=== PATIENT | male | born 1945 | race Caucasian/White ===

== ENCOUNTER → 2018-01-02 07:58 | Outpatient (CLI) | payer MEDICARE, OTHER, SELFPAY ==
[2018-01-02 11:53] LABS: Alanine Aminotransferase 57 IU/L (21-72); Albumin 3.9 g/dL (3.5-5.0); Albumin Globulin Ratio 1.3 (1.0-2.8); Alkaline Phosphatase 78 U/L (38-126); Aspartate Aminotransferase 47 IU/L (17-59); BUN Creatinine Ratio 23.3 (6-22); Bilirubin Total 0.7 mg/dL (0.2-1.3); Blood Urea Nitrogen 21 mg/dL (9-20); Calcium 8.9 mg/dL (8.4-10.2); Carbon Dioxide 26 mmol/L (22-32); Chloride 105 mmol/L (98-107); Cholesterol 114 mg/dL (140-199); Estimated Glomerular Filt Rate > 60.0 mL/min (>60); Globulin 2.9 g/dL (1.7-4.1); Glucose 83 mg/dL (80-110); HDL Cholesterol 55 mg/dL (40-60); HEMOLYSIS < 15 (0-50); LDL Cholesterol Calculated 53 mg/dL (<100); Potassium 4.2 mmol/L (3.4-5.1); Sodium 142 mmol/L (137-145); Total Protein 6.8 g/dL (6.3-8.2); Triglycerides 31 mg/dL (35-150)
== END ==
PROVIDERS: Visit Provider Internal Medicine Cardiovascular Disease
DX: I48.0 Paroxysmal atrial fibrillation (principal); E78.5 Hyperlipidemia, unspecified
CPT/HCPCS: 36415; 80053; 80061

== ENCOUNTER 2018-01-25 14:58 | Emergency (ER) | payer MEDICARE, OTHER, SELFPAY ==
[2018-01-25 15:08] VITALS: BP 141/103; PULSE 98; RESP 20; TEMP 36.9; O2SAT 98; BMI 24.0
--- NOTE | 2018-01-25 15:20 | ED_ITS ---
HPI - Animal Bite <[facility] - Last Filed: 01/25/18 16:47> General Chief Complaint: Animal Bite Stated Complaint: DOG BITE TO FACE Time Seen by Provider: 01/25/18 15:03 Source: patient Mode of arrival: ambulatory Limitations: no limitations History of Present Illness HPI narrative: The patient is a 72-year-old male with history of atrial fibrillation who presents after a dog bite to the face. He is unsure of his last tetanus but believes it was within the past 10 years. He states that the dog was his daughter's dog, a 12-year-old [place] who was completely vaccinated. He has not taken anything, applied anything or looked at the lacerations. He he states that the lacerations and bite moise around his right eye. He denies any irritation or pain to the right eye states that his vision is okay. Denies decreased ROM, eye problems, or concerns other than lacerations. Related Data Previous Rx's Medication Instructions Recorded doxycycline hyclate 100 mg PO BID #14 tab 01/25/18 Allergies Allergy/AdvReac Type Severity Reaction Status Date / Time ampicillin Allergy Verified 01/25/18 15:12 Review of Systems <[facility] Last Filed: 01/25/18 16:47> Review of Systems GENERAL: Denies chills, fatigue, malaise, fever, sweats. HEENT: See HPI RESPIRATORY: Denies dyspnea, cough, wheezing, hemoptysis, sputum. CARDIOVASCULAR: Denies chest pain, palpitations, orthopnea, edema, GASTROINTESTINAL: Denies nausea, vomiting, abdominal pain, diarrhea, constipation, melena. : Denies dysuria, frequency, incontinence, hematuria, urinary retention. MUSCULOSKELETAL: denies weakness, joint pain, or bony pain SKIN: See HPI NEUROLOGIC: Denies weakness, headache, numbness, change in speech, confusion, seizures, incoordination. PSYCHIATRIC: No concerning psychosocial issues. 12 point review of systems is negative except for those stated above Exam <CORTEZ De La Rosa - Last Filed: 01/25/18 16:47> Narrative Exam Narrative: GENERAL: This is a well-nourished, well-developed patient, with bandage on his face HEAD: Lacerations as noted in skin exam. Periorbital ecchymosis noted right eye. Patient is able to move eyebrows symmetrically. Facial movement symmetric. EYES: Pupils equal round reactive. EOMs intact. No abrasion or laceration under fluorescein exam. ENT: Nose without bleeding, purulent drainage or septal hematoma. Throat without erythema, tonsillar hypertrophy or exudate. Uvula midline. Airway patent. NECK: Trachea midline. No JVD or lymphadenopathy. Supple, nontender, no meningeal signs. CARDIOVASCULAR: Regular rate and rhythm without murmurs, gallops, or rubs. RESPIRATORY: Clear to auscultation. Breath sounds equal bilaterally. No wheezes , rales, or rhonchi. GASTROINTESTINAL: Abdomen soft, non-tender, nondistended. No hepato-splenomegaly , or palpable masses. No guarding. EXTREMITIES: No clubbing, cyanosis, or edema. No joint tenderness, effusion, or edema noted. BACK: Nontender without deformity or crepitance. No flank tenderness. NEURO: AOx3. SKIN: 2 x 3 cm triangular shaped avulsion injury to lateral aspect of right eyebrow. Through dermis. No obvious muscle or tendon involvement. No obvious foreign body. 1 cm v-shaped laceration between right eyelid and right eyebrow. Through dermis. No obvious muscle or tendon involvement. No obvious foreign body. Initial Vital Signs Initial Vital Signs: Vital Signs Temperature 98.4 F 01/25/18 15:08 Pulse Rate 98 H 01/25/18 15:08 Respiratory Rate 20 01/25/18 15:08 Blood Pressure 141/103 H 01/25/18 15:08 Pulse Oximetry 98 01/25/18 15:08 <Victor Manuel Landa DO - Last Filed: 01/25/18 17:13> Initial Vital Signs Initial Vital Signs: Vital Signs Temperature 98.4 F 01/25/18 15:08 Pulse Rate 98 H 01/25/18 15:08 Respiratory Rate 20 01/25/18 15:08 Blood Pressure 141/103 H 01/25/18 15:08 Pulse Oximetry 98 01/25/18 15:08 Procedures <ETHAN De La Rosa - Last Filed: 01/25/18 16:47> Laceration Repair Laceration 1: Site: face Side (If applicable): right Size (cm): 3 Description: irregular and other (2 x 3 cm Avulsion) Depth: simple, single layer Local Anesthetic: other anesthetic (EMLA cream) Pre-repair: wound explored, irrigated extensively (Irrigated with sterile water as well as iodine) and deep structures intact Skin layer closed with: other (Surgicel and gauze.) Laceration 2: Site: face Side (If applicable): right Size (cm): 1 Description: stellate Depth: simple, single layer Local Anesthetic: other anesthetic (EMLA cream) Pre-repair: wound explored, irrigated extensively and deep structures intact Skin layer closed with: other (Dermabond) Course <ETHAN De La Rosa - Last Filed: 01/25/18 16:47> Orders Ordered: Discontinued Medications Diphtheria/Tetanus/Acell Pertussis (Adacel) 0.5 ml IM .ONCE ONE Stop: 01/25/18 15:14 Last Admin: 01/25/18 15:25 Dose: 0.5 ml Lidocaine/Prilocaine (Lidocaine-Prilocaine Cream) 5 gm TOP NOW ONE Stop: 01/25/18 15:14 Last Admin: 01/25/18 15:25 Dose: 5 gm Vital Signs - 8 hr 01/25/18 15:08 01/25/18 16:29 Temperature 98.4 F Pulse Rate 98 H 71 Respiratory Rate 20 14 Blood Pressure 141/103 H 122/75 Pulse Oximetry 98 71 L <Victor Manuel Landa DO - Last Filed: 01/25/18 17:13> Orders Ordered: Discontinued Medications Diphtheria/Tetanus/Acell Pertussis (Adacel) 0.5 ml IM .ONCE ONE Stop: 01/25/18 15:14 Last Admin: 01/25/18 15:25 Dose: 0.5 ml Lidocaine/Prilocaine (Lidocaine-Prilocaine Cream) 5 gm TOP NOW ONE Stop: 01/25/18 15:14 Last Admin: 01/25/18 15:25 Dose: 5 gm Vital Signs - 8 hr 01/25/18 15:08 01/25/18 16:29 Temperature 98.4 F Pulse Rate 98 H 71 Respiratory Rate 20 14 Blood Pressure 141/103 H 122/75 Pulse Oximetry 98 71 L MDM - Animal Bite <ETHAN De La Rosa - Last Filed: 01/25/18 16:47> MDM Narrative Medical decision making narrative: Patient presents status post dog bite to the face. Lacerations and injuries treated as noted and procedures. Patient's tetanus was updated. Given the location of the bite wound, he was placed on doxycycline as he is allergic to penicillins. I discussed at length care and monitoring of lacerations. We discussed monitoring for signs and symptoms of infection despite the doxycycline including pus, extending redness and fever. Discussed at length care of Surgicel as well as Dermabond. Discussed return precautions. Patient had no questions or concerns upon discharge. I did also include and discharge instructions to wear sunscreen. Discharge Plan Departure Patient Disposition: Home Clinical Impression: Bite by animal, Dog bite, Laceration, Periorbital ecchymosis of right eye Discharge Date/Time: 01/25/18 16:30 Interventions: ED Discharge Assessment Last Done: 01/25/18 16:29 Instructions: Eye Contusion, DI for Laceration Repair With Dermabond, DI for Animal Bites, Skin Wound, DI for Dog Bite Activity Restrictions/Additional Instructions: Today we updated her tetanus because of the dog bite. We checked your eye for an abrasion and none was found. You have 2 wounds around your right eye. The larger one is an avulsion injury that I am unable to close as there is too much missing skin. I placed Surgicel in this wound to help it heal and help it stop bleeding. I would leave this on until it falls off by itself. Otherwise if it stays, he can take it off in 5-7 days. You can change the overlying bandage on this twice a day. The smaller wound we closed with Dermabond. I gave you instructions on how to care for Dermabond. Please do not put any bacitracin or any creams or ointments on top of the Dermabond. We cleansed both injuries with both sterile water as well as iodine. We are starting you on an antibiotic called doxycycline due to the injury location. Please were sun screen with this antibiotic. Please monitor for signs and symptoms of infection including redness, pus or any visual disturbance. Please follow-up with her primary care provider if needed. Please come back to the emergency department for any urgent matters. Please do not swim and put your head under any dirty water and keep ear lacerations and wounds clean. Prescriptions: New doxycycline hyclate 100 mg tablet 100 mg PO BID Qty: 14 RF: 0 <Victor Manuel Landa, DO - Last Filed: 01/25/18 17:13> Cosign ED Attending Jean Marie Attestation: I was available for consultation during this patient's emergency department encounter
[2018-01-25] MEDS: LIDOCAINE/PRILOCAINE 5 GM TOP (15:25)
[2018-01-25] MEDS: TET,DIPH,PERTUSS(ACELL),VAC/PF 0.5 ML SYRINGE IM (15:25)
[2018-01-25 16:29] VITALS: BP 122/75; PULSE 71; RESP 14; O2SAT 71
== END 2018-01-25 16:30 | disposition home or self-care (01) ==
PROVIDERS: Emergency Provider Nurse Practitioner Family
DX: S01.85XA Open bite of other part of head, initial encounter (principal); W54.0XXA Bitten by dog, initial encounter
CPT/HCPCS: 90471; 99283; 90715

== ENCOUNTER 2018-09-16 08:28 | Emergency (ER) | payer MEDICARE, OTHER, SELFPAY ==
[2018-09-16 08:30] VITALS: BP 109/56; PULSE 78; RESP 18; TEMP 36.6; O2SAT 98; BMI 23.2
--- NOTE | 2018-09-16 08:54 | ED.URI ---
HPI - URI/Sore Throat General Chief Complaint: Upper Respiratory Symptoms Stated Complaint: Continuous Cough, goopy eyes in AM t-14 days Time Seen by Provider: 09/16/18 08:47 Source: patient Mode of arrival: ambulatory Limitations: no limitations History of Present Illness HPI Narrative: A 73-year-old who comes in with complaint of cough that is been going on for 2 weeks with some yellow productive sputum and states that for the last 2 days he has had crusty bilateral eyes patient states only in the morning and does not continue the rest of the day. He denies any fevers or chills. States he always has a little bit of shortness of breath which he relates to his AFib. He states no new changes. He denies any chest pain or pressure nausea, no vomiting, no GI or urinary issues. Patient states he noticed a little pain in the back of his right calf. No redness, no swelling. Patient states his calves are always fat. He has not noticed any other changes. He did have his pneumococcal vaccine. He had a mild plus cardial perfusion scan around the 13 of August which he states was normal per his clinical pharmacist. He takes medication including Eliquis, blood pressure as well as dyslipidemia medications. Patient states he did have a TIA on Pradaxa. He was switched to Coumadin and his primary care switched him to Eliquis. Related Data Home Medications Medication Instructions Recorded Confirmed apixaban [Eliquis] 5 mg PO BID 09/16/18 09/16/18 ascorbic acid (vitamin C) [Vitamin 1 g PO DAILY 09/16/18 09/16/18 C] atorvastatin 40 mg PO BEDTIME 09/16/18 09/16/18 cholecalciferol (vitamin D3) 1,000 unit PO DAILY 09/16/18 09/16/18 [Vitamin D3] metoprolol succinate 25 mg PO DAILY 09/16/18 09/16/18 multivitamin 1 tab PO DAILY 09/16/18 09/16/18 sertraline 50 mg PO DAILY 09/16/18 09/16/18 verapamil 180 mg PO BID 09/16/18 09/16/18 Previous Rx's Medication Instructions Recorded furosemide [Lasix] 20 mg PO DAILY #5 tab 09/16/18 Allergies Allergy/AdvReac Type Severity Reaction Status Date / Time ampicillin Allergy Verified 09/16/18 08:54 Review of Systems Review of Systems ROS Unobtainable: All systems reviewed & are unremarkable except as noted in HPI and below Constitutional Denies chills, Denies fever(s), Denies lethargy and Denies weakness Cardiovascular Denies chest pain, Denies diaphoresis, Denies syncope, Denies rapid heart rate, Denies edema, Denies irregular heart rhythm, Denies lightheadedness, Denies palpitations, Reports dyspnea (all the time intermittently) and Denies orthopnea Respiratory Reports change in phlegm color (yellow), Denies chest congestion, Denies hemoptysis, Reports excessive phlegm production, Denies pain on inspiration, Reports dyspnea (all the time intermittently), Denies stridor and Denies wheezing Gastrointestinal Gastrointestinal: Denies abdominal pain, Denies change in bowel habits, Denies diarrhea, Denies nausea and Denies vomiting Genitourinary Denies hematuria, Denies dysuria, Denies flank pain, Denies urinary frequency, Denies urinary incontinence and Denies urinary urgency Musculoskeletal Reports as per HPI, Denies limited range of motion, Denies muscle weakness, Denies numbness, Denies tingling and Reports other (calf/back of knee pain) Integumentary/Breasts Denies erythema, Denies rash, Denies unusual bruising and Denies wounds Neurologic Denies syncope, Denies numbness, Denies tingling and Denies weakness Endocrine Denies palpitations Allergic/Immunologic Denies wheezing [facility] Social History Smoking Status: Never smoker Social History Smoking Status: Never smoker Exam Narrative Exam Narrative: GENERAL: Alert and oriented x three, well-nourished, well-appearing male in no acute distress. HEENT: Head normocephalic, atraumatic, EOMI, pupils reactive, face symmetric, moist mucous membranes NECK: Supple, full range of motion CARDIOVASCULAR: Regular rate and rhythm without murmurs, rubs or gallops. No JVD. Patient's lower extremities look slightly swollen but no compressible edema. RESPIRATORY: Breath sounds equal bilaterally, no wheezes rales or rhonchi. Tachypnea, no accessory muscle use. ABDOMEN: Soft, nontender. Normoactive bowel sounds all 4 quadrants. No guarding or rebound, rigidity, no mass : No CVA tenderness EXTREMITIES: Normal range of motion, no clubbing or edema. Neurovascularly intact. Patient has some chronic venous stasis changes bilaterally. Nontender in the popliteal. Cap refills less than 2 seconds in both lower extremities. No bony tenderness to the right knee with full range of motion. And no swelling appreciated. NEUROLOGICAL: Cranial nerves II through XII grossly intact. Moving all extremities. normal gait. SKIN: Warm, dry, no petechiae, no rashes or lesions. Initial Vital Signs Initial Vital Signs: Vital Signs Temperature 97.9 F 09/16/18 08:30 Pulse Rate 78 09/16/18 08:30 Respiratory Rate 18 09/16/18 08:30 Blood Pressure 109/56 L 09/16/18 08:30 Pulse Oximetry 98 09/16/18 08:30 Course Orders Ordered: ED Orders 09/16/18 09:06 US periph venous low extrem rt Stat XR chest 2V Stat 09/16/18 09:21 EKG-12 Lead Stat 09/16/18 09:25 B Type Natriuretic Peptide Stat Basic Metabolic Panel Stat Complete Blood Count AUTO DIFF Stat Partial Thromboplastin Time Stat Prothrombin Time INR Stat Troponin & CK Cardiac Panel Stat Vital Signs - 8 hr 09/16/18 11:25 Pulse Rate 61 Respiratory Rate 18 Blood Pressure [Left Arm] 107/59 L Pulse Oximetry 99 MDM - URI/Sore Throat Lab Data Attestation: I reviewed the patient's lab results. Result diagrams: 09/16/18 09:25 09/16/18 09:25 Lab Results 09/16/18 09/16/18 09/16/18 Range/Units 09:25 09:25 09:25 WBC 6.3 (4.5-11.0) X10^3/uL RBC 3.92 L (4.5-5.9) X10^6/uL Hgb 11.5 L (13.5-17.5) g/dL Hct 34.2 L (41-53) % MCV 87.3 (80-100) fL MCH 29.5 (26-34) PG MCHC 33.8 (30-36) % RDW 14.5 (11.6-14.8) % Plt Count 145 L (150-400) X10^3/uL Neut % (Auto) 71.2 (50-75) % Lymph % (Auto) 19.0 L (25-40) % [place] % (Auto) 7.8 (3-14) % Eos % (Auto) 0.9 L (2-4) % Baso % (Auto) 1.1 (0-2) % Neut # (Auto) 4500 (4758-7545) /uL Lymph # (Auto) 1200 (5933-5064) /uL [place] # (Auto) 500 (0-900) /uL Eos # (Auto) 100 (0-450) /uL Baso # (Auto) 100 (0-100) /uL PT 14.3 H (10.1-12.7) SECONDS INR 1.2 (0.9-1.3) APTT 34 (26.4-36.2) SECONDS Sodium 137 (137-145) mmol/L Potassium 4.2 (3.4-5.1) mmol/L Chloride 103 (98-107) mmol/L Carbon Dioxide 24 (22-32) mmol/L BUN 24 H (9-20) mg/dL Creatinine 0.80 (0.66-1.25) mg/dL Estimated GFR > 60.0 (>60) mL/min BUN/Creatinine Ratio 30.0 H (6-22) Glucose 85 (80-110) mg/dL Calcium 8.9 (8.4-10.2) mg/dL Total Creatine Kinase 58 (55-170) U/L CK-MB (CK-2) TNP CK-MB (CK-2) Rel Index TNP Troponin I < 0.012 (0.01-0.034) ng/mL B-Natriuretic Peptide 561 H (<100) Imaging Data vascular US: Radiologist's impression: [address] [address] Ultrasound Report Signed Patient: Joel Shankar OMR#: [id number] : 4Acct:[id number] Age/Sex: 73 / MDate of Service: 09/16/18 Loc: ED Accession Number: [id number] Procedure: US periph venous low extrem rt Ordering Provider: Coby Serna D.O. PROCEDURE: US PERIPH VENOUS LOW EXTREM RT INDICATIONS: cough, right calf pain TECHNIQUE: Real-time imaging, as well as color and pulse Doppler interrogation, were performed of the lower extremity deep veins from the inguinal ligament to the popliteal fossa. COMPARISON: None. FINDINGS: The common femoral, femoral and popliteal veins are normally compressible, and free of intraluminal thrombus. Color and pulse Doppler demonstrate normal phasic intraluminal flow. There is normal augmentation response to distal compression maneuver. IMPRESSION: No deep venous thrombosis in the right lower extremity. Dictated by: Meg Chisholm M.D. on 09/16/2018 at 9:44 Approved by: Meg Chisholm M.D. on 09/16/2018 at 9:44 ECG Data Attestation: I personally reviewed and interpreted this ECG as follows: MDM Narrative Medical decision making narrative: I suspect patient has probably an upper respiratory infection and or maybe a mild pneumonia. But patient also has complaint of right calf pain and states that he always feels a little short of breath on and on. We discussed doing a little bit more extensive workup and patient is agreeable. Patient's DVT and chest x-ray did not show acute changes. BNP is elevated, troponin is negative. Patient is little anemic, platelets are slightly low. BUN is slightly elevated. Patient had a myocardial perfusion scan 3 weeks ago which he states he was told was normal with no acute changes. I asked that he follow up with his primary care this week for recheck. Return to do a short course of Lasix and I would like patient to be rechecked. Patient feels comfortable with the plan. We discussed today's findings, lab work and reasons to return emergently. Discharge Plan Departure Patient Disposition: Home Clinical Impression: CHF (congestive heart failure) Discharge Date/Time: 09/16/18 11:39 Interventions: ED Discharge Assessment Last Done: 09/16/18 11:39 Instructions: DI for Heart Failure Activity Restrictions/Additional Instructions: Follow up with your primary care physician in the next 2-3 days for recheck. Start lasix today and take until gone. Your prescription was sent to [facility] in [facility]. Continue your other home medications as prescribed. Return to the ER if he had fevers greater 100.4 F, new chest pain or pressure, increasing shortness of breath, worsening swelling in lower extremities, lightheadedness, passing out or other new or concerning symptoms. Prescriptions: New furosemide [Lasix] 20 mg tablet 20 mg PO DAILY Qty: 5 RF: 0 No Action atorvastatin 40 mg tablet 40 mg PO BEDTIME RF: 0 Eliquis 5 mg tablet 5 mg PO BID RF: 0 multivitamin Tablet 1 tab PO DAILY RF: 0 ascorbic acid (vitamin C) [Vitamin C] 1,000 mg Tablet 1 g PO DAILY RF: 0 verapamil 180 mg tablet extended release 180 mg PO BID RF: 0 metoprolol succinate 25 mg tablet extended release 24 hr 25 mg PO DAILY RF: 0 sertraline 50 mg tablet 50 mg PO DAILY RF: 0 cholecalciferol (vitamin D3) [Vitamin D3] 1,000 unit Capsule 1,000 unit PO DAILY RF: 0 ED Cosign/Signout Cosign ED Attending Cosignature Attestation: I was immediately available in the department for consultation. This documentation has been reviewed and I agree with assessment and plan. Supervised by Coby Serna DO
--- NOTE | 2018-09-16 09:06 | DI.US.S_ITS ---
PROCEDURE: US PERIPH VENOUS LOW EXTREM RT INDICATIONS: cough, right calf pain TECHNIQUE: Real-time imaging, as well as color and pulse Doppler interrogation, were performed of the lower extremity deep veins from the inguinal ligament to the popliteal fossa. COMPARISON: None. FINDINGS: The common femoral, femoral and popliteal veins are normally compressible, and free of intraluminal thrombus. Color and pulse Doppler demonstrate normal phasic intraluminal flow. There is normal augmentation response to distal compression maneuver. IMPRESSION: No deep venous thrombosis in the right lower extremity. Dictated by: Meg Chisholm M.D. on 09/16/2018 at 9:44 Approved by: Meg Chisholm M.D. on 09/16/2018 at 9:44
--- NOTE | 2018-09-16 09:06 | DI.RAD.S_ITS ---
PROCEDURE: XR CHEST 2V INDICATIONS: cough yellow sputum, crusty eyes, right calf pain TECHNIQUE: 2 views of the chest were acquired. COMPARISON: [facility], CR, XR CHEST 1 VIEW, 05/07/2017, 17:07. FINDINGS: Surgical changes and devices: None. Lungs and pleura: Lungs are clear. No pleural effusions or pneumothorax. Mediastinum: Mediastinal contours are normal. Heart size is normal. Bones and chest wall: No suspicious bony abnormalities. Soft tissues appear unremarkable. IMPRESSION: Negative chest. No acute cardiopulmonary process is evident. Dictated by: Adrien Tay M.D. on 09/16/2018 at 8:59 Approved by: Adrien Tay M.D. on 09/16/2018 at 9:00
--- NOTE | 2018-09-16 09:13 | ED_ITS ---
HPI - URI/Sore Throat General Chief Complaint: Upper Respiratory Symptoms Stated Complaint: Continuous Cough, goopy eyes in AM t-14 days Time Seen by Provider: 09/16/18 08:47 Source: patient Mode of arrival: ambulatory Limitations: no limitations History of Present Illness HPI Narrative: A 73-year-old who comes in with complaint of cough that is been going on for 2 weeks with some yellow productive sputum and states that for the last 2 days he has had crusty bilateral eyes patient states only in the morning and does not continue the rest of the day. He denies any fevers or chills. States he always has a little bit of shortness of breath which he relates to his AFib. He states no new changes. He denies any chest pain or pressure nausea, no vomiting, no GI or urinary issues. Patient states he noticed a little pain in the back of his right calf. No redness, no swelling. Patient states his calves are always fat. He has not noticed any other changes. He did have his pneumococcal vaccine. 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 He takes medication including Eliquis, blood pressure as well as dyslipidemia medications. Patient states he did have a TIA on Pradaxa. He was switched to Coumadin and his primary care switched him to Eliquis. Related Data Home Medications Medication Instructions Recorded Confirmed apixaban [Eliquis] 5 mg PO BID 09/16/18 09/16/18 ascorbic acid (vitamin C) [Vitamin 1 g PO DAILY 09/16/18 09/16/18 C] atorvastatin 40 mg PO BEDTIME 09/16/18 09/16/18 cholecalciferol (vitamin D3) 1,000 unit PO DAILY 09/16/18 09/16/18 [Vitamin D3] metoprolol succinate 25 mg PO DAILY 09/16/18 09/16/18 multivitamin 1 tab PO DAILY 09/16/18 09/16/18 sertraline 50 mg PO DAILY 09/16/18 09/16/18 verapamil 180 mg PO BID 09/16/18 09/16/18 Previous Rx's Medication Instructions Recorded furosemide [Lasix] 20 mg PO DAILY #5 tab 09/16/18 Allergies Allergy/AdvReac Type Severity Reaction Status Date / Time ampicillin Allergy Verified 09/16/18 08:54 Review of Systems Review of Systems ROS Unobtainable: All systems reviewed & are unremarkable except as noted in HPI and below Constitutional Denies chills, Denies fever(s), Denies lethargy and Denies weakness Cardiovascular Denies chest pain, Denies diaphoresis, Denies syncope, Denies rapid heart rate, Denies edema, Denies irregular heart rhythm, Denies lightheadedness, Denies pal pitations, Reports dyspnea (all the time intermittently) and Denies orthopnea Respiratory Reports change in phlegm color (yellow), Denies chest congestion, Denies hemoptysis, Reports excessive phlegm production, Denies pain on inspiration, Reports dyspnea (all the time intermittently), Denies stridor and Denies wheezing Gastrointestinal Gastrointestinal: Denies abdominal pain, Denies change in bowel habits, Denies diarrhea, Denies nausea and Denies vomiting Genitourinary Denies hematuria, Denies dysuria, Denies flank pain, Denies urinary frequency, Denies urinary incontinence and Denies urinary urgency Musculoskeletal Reports as per HPI, Denies limited range of motion, Denies muscle weakness, Denies numbness, Denies tingling and Reports other (calf/back of knee pain) Integumentary/Breasts Denies erythema, Denies rash, Denies unusual bruising and Denies wounds Neurologic Denies syncope, Denies numbness, Denies tingling and Denies weakness Endocrine Denies palpitations Allergic/Immunologic Denies wheezing [facility] Social History Smoking Status: Never smoker Social History Smoking Status: Never smoker Exam Narrative Exam Narrative: GENERAL: Alert and oriented x three, well-nourished, well- appearing male in no acute distress. HEENT: Head normocephalic, atraumatic, EOMI, pupils reactive, face symmetric, moist mucous membranes NECK: Supple, full range of motion CARDIOVASCULAR: Regular rate and rhythm without murmurs, rubs or gallops. No JVD. Patient's lower extremities look slightly swollen but no compressible edema. RESPIRATORY: Breath sounds equal bilaterally, no wheezes rales or rhonchi. Tachypnea, no accessory muscle use. ABDOMEN: Soft, nontender. Normoactive bowel sounds all 4 quadrants. No gu arding or rebound, rigidity, no mass : No CVA tenderness EXTREMITIES: Normal range of motion, no clubbing or edema. Neurovascularly intact. Patient has some chronic venous stasis changes bilaterally. Nontender in the popliteal. Cap refills less than 2 seconds in both lower extremities. No bony tenderness to the right knee with full range of motion. And no swelling appreciated. NEUROLOGICAL: Cranial nerves II through XII grossly intact. Moving all extremities. normal gait. SKIN: Warm, dry, no petechiae, no rashes or lesions. Initial Vital Signs Initial Vital Signs: Vital Signs Temperature 97.9 F 09/16/18 08:30 Pulse Rate 78 09/16/18 08:30 Respiratory Rate 18 09/16/18 08:30 Blood Pressure 109/56 L 09/16/18 08:30 Pulse Oximetry 98 09/16/18 08:30 Course Orders Ordered: ED Orders 09/16/18 09:06 US periph venous low extrem rt Stat XR chest 2V Stat 09/16/18 09:21 EKG-12 Lead Stat 09/16/18 09:25 B Type Natriuretic Peptide Stat Basic Metabolic Panel Stat Complete Blood Count AUTO DIFF Stat Partial Thromboplastin Time Stat Prothrombin Time INR Stat Troponin & CK Cardiac Panel Stat Vital Signs - 8 hr 09/16/18 11:25 Pulse Rate 61 Respiratory Rate 18 Blood Pressure [Left Arm] 107/59 L Pulse Oximetry 99 MDM - URI/Sore Throat Lab Data Attestation: I reviewed the patient's lab results. Result diagrams: 09/16/18 09:25 09/16/18 09:25 Lab Results 09/16/18 09/16/18 09/16/18 Range/Units 09:25 09:25 09:25 WBC 6.3 (4.5-11.0) X10^3/uL RBC 3.92 L (4.5-5.9) X10^6/uL Hgb 11.5 L (13.5-17.5) g/dL Hct 34.2 L (41-53) % MCV 87.3 (80-100) fL MCH 29.5 (26-34) PG MCHC 33.8 (30-36) % RDW 14.5 (11.6-14.8) % Plt Count 145 L (150-400) X10^3/uL Neut % (Auto) 71.2 (50-75) % Lymph % (Auto) 19.0 L (25-40) % [place] % (Auto) 7.8 (3-14) % Eos % (Auto) 0.9 L (2-4) % Baso % (Auto) 1.1 (0-2) % Neut # (Auto) 4500 (1161-1174) /uL Lymph # (Auto) 1200 (7176-0583) /uL [place] # (Auto) 500 (0-900) /uL Eos # (Auto) 100 (0-450) /uL Baso # (Auto) 100 (0-100) /uL PT 14.3 H (10.1-12.7) SECONDS INR 1.2 (0.9-1.3) APTT 34 (26.4-36.2) SECONDS Sodium 137 (137-145) mmol/L Potassium 4.2 (3.4-5.1) mmol/L Chloride 103 (98-107) mmol/L Carbon Dioxide 24 (22-32) mmol/L BUN 24 H (9-20) mg/dL Creatinine 0.80 (0.66-1.25) mg/dL Estimated GFR > 60.0 (>60) mL/min BUN/Creatinine Ratio 30.0 H (6-22) Glucose 85 (80-110) mg/dL Calcium 8.9 (8.4-10.2) mg/dL Total Creatine Kinase 58 (55-170) U/L CK-MB (CK-2) TNP CK-MB (CK-2) Rel Index TNP Troponin I < 0.012 (0.01-0.034) ng/mL B-Natriuretic Peptide 561 H (<100) Imaging Data vascular US: Radiologist's impression: [address] [id number] Ultrasound Report Signed Patient: Joel Shankar OMR#: [id number] : 4Acct:[id number] Age/Sex: 73 / MDate of Service: 09/16/18 Loc: ED Accession Number: [id number] Procedure: US periph venous low extrem rt Ordering Provider: Coby Serna D.O. PROCEDURE: US PERIPH VENOUS LOW EXTREM RT INDICATIONS: cough, right calf pain TECHNIQUE: Real-time imaging, as well as color and pulse Doppler interrogation, were performed of the lower extremity deep veins from the inguinal ligament to the popliteal fossa. COMPARISON: None. FINDINGS: The common femoral, femoral and popliteal veins are normally compressible, and free of intraluminal thrombus. Color and pulse Doppler demonstrate normal phasic intraluminal flow. There is normal augmentation response to distal compression maneuver. IMPRESSION: No deep venous thrombosis in the right lower extremity. Dictated by: Meg Chisholm M.D. on 09/16/2018 at 9:44 Approved by: Meg Chisholm M.D. on 09/16/2018 at 9:44 ECG Data Attestation: I personally reviewed and interpreted this ECG as follows: MDM Narrative Medical decision making narrative: I suspect patient has probably an upper respiratory infection and or maybe a mild pneumonia. But patient also has complaint of right calf pain and states that he always feels a little short of breath on and on. We discussed doing a little bit more extensive workup and patient is agreeable. Patient's DVT and chest x-ray did not show acute changes. BNP is elevated, troponin is negative. Patient is little anemic, platelets are slightly low. BUN is slightly elevated. Patient had a myocardial perfusion scan 3 weeks ago which he states he was told was normal with no acute changes. I asked that he follow up with his primary care this week for recheck. Return to do a short course of Lasix and I would like patient to be rechecked. Patient feels comfortable with the plan. We discussed today's findings, lab work and reasons to return emergently. Discharge Plan Departure Patient Disposition: Home Clinical Impression: CHF (congestive heart failure) Discharge Date/Time: 09/16/18 11:39 Interventions: ED Discharge Assessment Last Done: 09/16/18 11:39 Instructions: DI for Heart Failure Activity Restrictions/Additional Instructions: Follow up with your primary care physician in the next 2-3 days for recheck. Start lasix today and take until gone. Your prescription was sent to [facility] in [facility]. Continue your other home medications as prescribed. Return to the ER if he had fevers greater 100.4 F, new chest pain or pressure, increasing shortness of breath, worsening swelling in lower extremities, lightheadedness, passing out or other new or concerning symptoms. Prescriptions: New furosemide [Lasix] 20 mg tablet 20 mg PO DAILY Qty: 5 RF: 0 No Action atorvastatin 40 mg tablet 40 mg PO BEDTIME RF: 0 Eliquis 5 mg tablet 5 mg PO BID RF: 0 multivitamin Tablet 1 tab PO DAILY RF: 0 ascorbic acid (vitamin C) [Vitamin C] 1,000 mg Tablet 1 g PO DAILY RF: 0 verapamil 180 mg tablet extended release 180 mg PO BID RF: 0 metoprolol succinate 25 mg tablet extended release 24 hr 25 mg PO DAILY RF: 0 sertraline 50 mg tablet 50 mg PO DAILY RF: 0 cholecalciferol (vitamin D3) [Vitamin D3] 1,000 unit Capsule 1,000 unit PO DAILY RF: 0 ED Cosign/Signout Cosign ED Attending Cosignature Attestation: I was immediately available in the department for consultation. This documentation has been reviewed and I agree with assessment and plan. Supervised by Coby Serna DO
[2018-09-16 09:41] LABS: Add Manual Diff / Slide Review NO; Basophils Absolute Auto 100 /uL (0-100); Basophils Percent Auto 1.1 % (0-2); Eosinophils Absolute Auto 100 /uL (0-450); Eosinophils Percent Auto 0.9 % (2-4); Hematocrit 34.2 % (41-53); Hemoglobin 11.5 g/dL (13.5-17.5); Lymphocytes Absolute Auto 1200 /uL (1100-4500); Mean Corpuscular HGB Conc 33.8 % (30-36); Mean Corpuscular Hemoglobin 29.5 PG (26-34); Mean Corpuscular Volume 87.3 fL (80-100); Monocytes Absolute Auto 500 /uL (0-900); Monocytes Percent Auto 7.8 % (3-14); Neutrophils Absolute Auto 4500 /uL (1500-7000); Neutrophils Percent Auto 71.2 % (50-75); Platelet Count 145 X10^3/uL (150-400); Red Blood Cell Count 3.92 X10^6/uL (4.5-5.9); Red Cell Distribution Width 14.5 % (11.6-14.8); White Blood Cell Count 6.3 X10^3/uL (4.5-11.0)
[2018-09-16 09:47] LABS: INR 1.2 (0.9-1.3); Prothrombin Time 14.3 SECONDS (10.1-12.7)
[2018-09-16 09:49] LABS: PTT Partial Thromboplastin Tim 34 SECONDS (26.4-36.2)
[2018-09-16 09:50] LABS: Blood Urea Nitrogen 24 mg/dL (9-20); Calcium 8.9 mg/dL (8.4-10.2); Carbon Dioxide 24 mmol/L (22-32); Chloride 103 mmol/L (98-107); Creatine Kinase 58 U/L (55-170); Estimated Glomerular Filt Rate > 60.0 mL/min (>60); Glucose 85 mg/dL (80-110); HEMOLYSIS < 15 (0-50); Potassium 4.2 mmol/L (3.4-5.1); Sodium 137 mmol/L (137-145)
[2018-09-16 10:00] VITALS: BP 102/56; PULSE 60; RESP 16; O2SAT 97
[2018-09-16 10:02] LABS: Troponin I < 0.012 ng/mL (0.01-0.034)
[2018-09-16 10:09] LABS: B Type Natriuretic Peptide 561 (<100)
[2018-09-16 11:25] VITALS: BP 107/59; PULSE 61; RESP 18; O2SAT 99
== END 2018-09-16 11:39 | disposition home or self-care (01) ==
PROVIDERS: Emergency Provider Emergency Medicine
DX: I50.9 Heart failure, unspecified (principal); Z86.73 Personal history of transient ischemic attack (TIA), and cerebral infarction without residual deficits; Z79.01 Long term (current) use of anticoagulants
CPT/HCPCS: 36591; 71046; 80048; 82550; 83880; 84484; 85025; 85610; 85730; 93005; 93971; 99283; 99285

== ENCOUNTER → 2019-08-15 09:46 | Outpatient (CLI) | payer MEDICARE, OTHER, SELFPAY ==
[2019-08-16 08:47] LABS: COVID19 Sendout NOT DETECTED (Not Detect)
== END ==
PROVIDERS: Visit Provider Physician Assistant
DX: Z01.812 Encounter for preprocedural laboratory examination (principal)
CPT/HCPCS: 87635

== ENCOUNTER 2019-11-18 08:30 | Outpatient (RCR) | payer MEDICARE, OTHER, SELFPAY | END 2019-11-18 10:30 | LOC: CAR 08:30 | PROVIDERS: Referring Provider Surgery; Visit Provider Surgery | DX: Z95.2 Presence of prosthetic heart valve (principal) | CPT/HCPCS: 93798 ==

== ENCOUNTER 2020-06-24 07:35 | Emergency (ER) | payer MEDICARE, OTHER, SELFPAY ==
[2020-06-24] VITALS (9 sets, daily range): BP systolic 128–130; BP diastolic 83–87; PULSE 101–113; RESP 13–23; O2SAT 96–98; BMI 24.4
--- NOTE | 2020-06-24 07:45 | DI.RAD.S_ITS ---
PROCEDURE: XR CHEST 1V INDICATIONS: chest pain TECHNIQUE: One view of the chest was acquired. COMPARISON: [facility], CT, CT ANGIO CHEST ABDOMEN PELVIS, 06/24/2020, 8:31. [facility], CR, XR CHEST 2V, 09/16/2018, 9:26. FINDINGS: Surgical changes and devices: Status post median sternotomy with left atrial appendage clip. Lungs and pleura: There is no focal consolidation or pleural effusion. Linear densities overlying the lungs bilaterally favored to represent skin lines. Markings are noted extending to the pleural surfaces. Mediastinum: Heart size is within normal limits. Bones and chest wall: No suspicious bony lesions. Overlying soft tissues appear unremarkable. IMPRESSION: Postsurgical changes without evidence of an acute cardiopulmonary abnormality. Linear densities overlying the lungs bilaterally favored to represent skin lines. Dictated by: Oswald Munoz D.O. on 06/24/2020 at 8:15 Approved by: Oswald Munoz D.O. on 06/24/2020 at 8:18
--- NOTE | 2020-06-24 07:54 | ED_ITS ---
HPI - Chest Pain General Chief Complaint: Chest Pain Stated Complaint: CHEST PAIN Time Seen by Provider: 06/24/20 07:52 Source: patient and family () Mode of arrival: Ambulatory Limitations: no limitations History of Present Illness HPI narrative: This is a 75-year-old male who arrives with complaints of left lo wer quadrant pain that radiates to his chest. Patient states that it started yesterday. He states the fairly sudden onset. He states started in the lower quadrant went up through his ribs and then through his middle chest. Patient states it does not radiate to his back or flank he denies any fevers or chills. He has had nausea but no vomiting. He has chronic shortness of breath since his aortic valve replacement in June but states it has been slowly worsening over the last month but not significantly changed in the last several days. Patient denies any diarrhea or constipation. He denies any black or bright red blood in his stool. He denies any new urinary symptoms such as dysuria, frequency urgency or incontinence. Patient does note that he has had increasing lower extremity edema over the past month. Patient states he has not had anything for pain today. Patient does note that when he turns his head to the left that improve his pain as well as when he leans forward. Patient states he had an aortic valve repair at [facility] for aortic stenosis in June of 2019. He h as a history of hip replacement, robotic prostate surgery, hernia repair as well as hemorrhoid repair and basal cell surgery. He is on Eliquis as well as aspirin 81 mg daily for chronic atrial fibrillation, he takes medication for hypertension, dyslipidemia and has a prior stroke in February 2015 and denies any chronic deficits. He denies any prior heart attacks. Patient states his only allergies to ampicillin. He denies any tobacco, alcohol or illicit. He follows with Dr. Waterman is his geophysical engineer at [facility] as well as his primary care is based out of [facility]. Patient accompanied by his . Related Data Home Medications Medication Instructions Recorded Confirmed apixaban [Eliquis] 5 mg PO BID 09/16/18 09/16/18 ascorbic acid (vitamin C) [Vitamin 1 g PO DAILY 09/16/18 09/16/18 C] atorvastatin 40 mg PO BEDTIME 09/16/18 09/16/18 cholecalciferol (vitamin D3) 1,000 unit PO DAILY 09/16/18 09/16/18 [Vitamin D3] metoprolol succinate 25 mg PO DAILY 09/16/18 09/16/18 multivitamin 1 tab PO DAILY 09/16/18 09/16/18 sertraline 50 mg PO DAILY 09/16/18 09/16/18 verapamil 180 mg PO BID 09/16/18 09/16/18 Previous Rx's Medication Instructions Recorded ciprofloxacin HCl 500 mg PO BID #20 tab 06/24/20 furosemide [Lasix] 40 mg PO DAILY #5 tab 06/24/20 ondansetron HCl [Zofran] 4 mg PO Q6H PRN #14 tab 06/24/20 oxycodone 5 mg PO Q6H PRN #10 tab 06/24/20 Allergies Allergy/AdvReac Type Severity Reaction Status Date / Time ampicillin Allergy Verified 08/15/19 09:44 Review of Systems Review of Systems ROS Unobtainable: All systems reviewed & are unremarkable except as noted in HPI and below Patient History Medical History (Updated 06/24/20 @ 10:15 by Coby Serna DO) A-fib CVA (cerebral vascular accident) Hyperlipidemia Surgical History (Updated 06/24/20 @ 08:22 by Coby Serna DO) H/O aortic valve replacement Social History Smoking Status: Never smoker Smoking Status: Never smoker alcohol intake frequency: 0-2 drinks per day Substance Use Type: does not use Exam Narrative Exam Narrative: GENERAL: Alert and oriented x three, well-nourished male in mild distress. HEENT: Head normocephalic, atraumatic, EOMI, pupils reactive, face symmetric, moist mucous membranes NECK: Supple, full range of motion CARDIOVASCULAR: Regular rate and rhythm without murmurs, rubs or gallops. Positive for JVD. Trace edema bilateral lower extremities. Patient has 2+ pulses posterior tibialis bilaterally. RESPIRATORY: Breath sounds equal bilaterally, no wheezes rales or rhonchi. No tachypnea accessory muscle use. ABDOMEN: Soft, positive for left upper and left lower quadrant tenderness. Patient appears more uncomfortable on palpation left lower quadrant than the left upper. Normoactive bowel sounds all 4 quadrants. No guarding or rebound, rigidity, no mass, no bruit or pulsatile mass. : No CVA tenderness bilaterally EXTREMITIES: Normal range of motion. Neurovascularly intact NEUROLOGICAL: Cranial nerves II through XII grossly intact. Moving all extremities SKIN: Warm, dry, no petechiae, no rashes or lesions, bruising or ecchymosis. Initial Vital Signs Initial Vital Signs: Vital Signs Pulse Rate 113 H 06/24/20 07:40 Pulse Oximetry 98 06/24/20 07:40 Course Orders Ordered: Discontinued Medications Sodium Chloride (Normal Saline 0.9%) 1,000 mls @ 150 mls/hr IV CONT GABO Last Infusion: 06/24/20 10:56 Dose: 0 mls/hr Documented by: Admin: 06/24/20 09:25 Dose: 150 mls/hr Documented by: THOM Morphine Sulfate (Morphine 4 Mg/Ml Inj) 4 mg IV NOW ONE Stop: 06/24/20 08:17 Last Admin: 06/24/20 08:26 Dose: 4 mg Documented by: LENORE Ondansetron HCl (Ondansetron 4 Mg/2 Ml Inj) 4 mg IV NOW ONE Stop: 06/24/20 08:17 Last Admin: 06/24/20 08:26 Dose: 4 mg Documented by: LENORE Oxycodone HCl (Oxycodone Ir 5 Mg Tablet) 5 mg PO NOW ONE Stop: 06/24/20 10:29 Last Admin: 06/24/20 10:37 Dose: 5 mg Documented by: LENORE Reevaluation(s) Reevaluation #1: Discussed findings with today with the patient. Also discussed he needs short-term follow-up is there is a wide differential for splenomegaly in his changes today. We also discussed potential causes and his imaging and labs today as well. Patient does note that he had his Bumex increased from 1-2 mg yesterday by his geophysical engineer and I noted with the patient that it does appear he has a little fluid overloaded in the seems appropriate. Time: 10:30 Consultations Consultation #1: Dr. Rock, reviewed patients imaging. Time: 09:43 Consultation #2: Dr. Del Toro reviewed imaging after discuss and will add addendum. Time: 09:50 Vital Signs Vital signs: Vital Signs - 8 hr 06/24/20 07:40 06/24/20 07:41 06/24/20 07:42 Pulse Rate 113 H 106 H 105 H Respiratory Rate 22 Blood Pressure 130/87 130/87 Pulse Oximetry 98 98 98 06/24/20 08:00 06/24/20 08:38 06/24/20 09:00 Pulse Rate 102 H 107 H 103 H Respiratory Rate 20 23 Blood Pressure 128/83 Pulse Oximetry 98 96 06/24/20 09:30 Pulse Rate 103 H Respiratory Rate 14 Blood Pressure Pulse Oximetry 96 MDM - Chest Pain Lab Data Attestation: I reviewed the patient's lab results. Result diagrams: 06/24/20 07:45 06/24/20 07:45 Labs: Lab Results 06/24/20 06/24/20 06/24/20 Range/Units 07:45 07:45 07:45 WBC 19.2 H (4.5-11.0) X10^3/uL RBC 3.80 L (4.5-5.9) X10^6/uL Hgb 10.9 L (13.5-17.5) g/dL Hct 32.8 L (41-53) % MCV 86.1 (80-100) fL MCH 28.6 (26-34) PG MCHC 33.1 (30-36) % RDW 14.6 (11.6-14.8) % Plt Count 90 L (150-400) X10^3/uL Neut % (Auto) 55.7 (50-75) % Lymph % (Auto) 34.6 (25-40) % [place] % (Auto) 9.5 (3-14) % Eos % (Auto) 0.0 L (2-4) % Baso % (Auto) 0.2 (0-2) % Neut # (Auto) 72272 H (2695-1846) /uL Lymph # (Auto) 6700 H (1663-6545) /uL [place] # (Auto) 1800 H (0-900) /uL Eos # (Auto) 0 (0-450) /uL Baso # (Auto) 0 (0-100) /uL PT 20.7 H (10.1-12.7) SECONDS INR 1.8 H (0.9-1.3) APTT 36 (26.4-36.2) SECONDS Sodium 132 L (137-145) mmol/L Potassium 4.1 (3.4-5.1) mmol/L Chloride 100 (98-107) mmol/L Carbon Dioxide 23 (22-32) mmol/L BUN 24 H (9-20) mg/dL Creatinine 0.84 (0.66-1.25) mg/dL Estimated GFR > 60.0 (>60) mL/min BUN/Creatinine Ratio 28.6 H (6-22) Glucose 112 H (80-110) mg/dL Lactate (0.7-2.1) mmol/L Calcium 9.2 (8.4-10.2) mg/dL Total Bilirubin 1.6 H (0.2-1.3) mg/dL AST 59 (17-59) IU/L ALT 40 (<50) IU/L Alkaline Phosphatase 138 H (38-126) U/L Total Creatine Kinase 40 L (55-170) U/L CK-MB (CK-2) TNP CK-MB (CK-2) Rel Index TNP Troponin I < 0.012 (0.01-0.034) ng/mL NT-Pro-B Natriuret Pep (<450) pg/mL Total Protein 7.0 (6.3-8.2) g/dL Albumin 3.8 (3.5-5.0) g/dL Globulin 3.2 (1.7-4.1) g/dL Albumin/Globulin Ratio 1.2 (1.0-2.8) Lipase 26 (23-300) U/L 06/24/20 06/24/20 Range/Units 07:45 07:45 WBC (4.5-11.0) X10^3/uL RBC (4.5-5.9) X10^6/uL Hgb (13.5-17.5) g/dL Hct (41-53) % MCV (80-100) fL MCH (26-34) PG MCHC (30-36) % RDW (11.6-14.8) % Plt Count (150-400) X10^3/uL Neut % (Auto) (50-75) % Lymph % (Auto) (25-40) % [place] % (Auto) (3-14) % Eos % (Auto) (2-4) % Baso % (Auto) (0-2) % Neut # (Auto) (4771-8018) /uL Lymph # (Auto) (5457-7652) /uL [place] # (Auto) (0-900) /uL Eos # (Auto) (0-450) /uL Baso # (Auto) (0-100) /uL PT (10.1-12.7) SECONDS INR (0.9-1.3) APTT (26.4-36.2) SECONDS Sodium (137-145) mmol/L Potassium (3.4-5.1) mmol/L Chloride (98-107) mmol/L Carbon Dioxide (22-32) mmol/L BUN (9-20) mg/dL Creatinine (0.66-1.25) mg/dL Estimated GFR (>60) mL/min BUN/Creatinine Ratio (6-22) Glucose (80-110) mg/dL Lactate 1.1 (0.7-2.1) mmol/L Calcium (8.4-10.2) mg/dL Total Bilirubin (0.2-1.3) mg/dL AST (17-59) IU/L ALT (<50) IU/L Alkaline Phosphatase (38-126) U/L Total Creatine Kinase (55-170) U/L CK-MB (CK-2) CK-MB (CK-2) Rel Index Troponin I (0.01-0.034) ng/mL NT-Pro-B Natriuret Pep 3660 H (<450) pg/mL Total Protein (6.3-8.2) g/dL Albumin (3.5-5.0) g/dL Globulin (1.7-4.1) g/dL Albumin/Globulin Ratio (1.0-2.8) Lipase (23-300) U/L Imaging Data CT angio chest/abd/pelvis: Radiologist's Impression: Joel Shankar 75 M [address] Scan ReportAddendum Patient: Joel Shankar OMR#: [id number]: 4Acct:[id number]/Sex: 75 / MDate of Service: 06/24/20Loc: EDAccession Number: [id number] Procedure: CT angio chest abdomen pelvis Ordering Provider: Mank,Coby C D.O. ADDENDUMThis report includes an Addendum and supersedes previous reports for this exam. PROCEDURE: CT ANGIO CHEST ABDOMEN PELVIS INDICATIONS: LLQ pain radiates to chest x 1 day TECHNIQUE: Precontrast 5 mm thick sections acquired from the lung apices to the iliac crests. After the administration of intravenous contrast, 2.5 mm thick sections again acquired from the lung apices to the iliac crests. Maximum intensity projection (MIP) oblique sagittal and coronal reformats were then acquired. For radiation dose reduction, the following was used: automated exposure control. COMPARISON: None. FINDINGS: Image quality: Excellent. AORTA: Intramural hematoma: Absent Maximum hematoma thickness: Applicable. Focal contrast enhancement: Intramural blood pool (< 2 mm neck or imperceptible communication with aortic lumen): Absent. Ulcer-like projection (broad communication with aortic lumen > 3 mm): Absent . Dissection: Absent [place] classification: Not applicable. Maximum aortic diameter: 4.1 cm. [If Adarsh A dissection, > 5.0 cm has a poorer prognosis. If [place] B dissection, > 4.0 cm has a poorer prognosis.] Periaortic hematoma: Absent. CHEST: Lungs and pleura: No acute airspace opacities. Trace bilateral pleural fluid collections. No pneumothorax. Central and peripheral airways are patent and normal in caliber. Mediastinum: Heart enlarged No pericardial effusion. There is reflux of contrast material into the IVC and hepatic veins. Atherosclerotic calcifications are noted in the aorta, great vessels and the coronary vasculature. Postsurgical changes compatible with aortic valve replacement noted. No mediastinal or hilar adenopathy by size criteria. Central pulmonary arteries are normal in size. Esophagus is normal in caliber. No hiatal hernias. Bones and chest wall: No axillary adenopathy by size criteria. Thyroid gland is normal. No suspicious bony lesions. No vertebral body compression fractures. ABDOMEN: Vasculature: Celiac trunk and mesenteric arteries are patent. Renal arteries are also patent. Solid organs: Liver is normal in size and enhancement. Gallbladder is within normal limits. Biliary system is non dilated. Pancreas enhances normally. Spleen is enlarged measuring 18.1 centimeters in midclavicular line. No adrenal nodules. Both kidneys are normal in size and enhancement, without hydronephrosis. Peritoneum and bowel: Small hiatal hernia. No free air. Scattered colonic diverticuli without evidence of diverticulitis. Multiple mildly dilated, fluid-filled loops of small bowel noted in the abdomen measuring up to 3.2 centimeters. Possible inflammatory changes in left lower quadrant mesentery. Small to moderate amount of free flui d no free air. The appendix is not visualized and cannot be evaluated. Nodes and vessels: No retroperitoneal or mesenteric adenopathy by size criteria. Inferior vena cava is normal in morphology. Miscellaneous: No ventral hernias. PELVIS: Genitourinary: Bladder wall thickness is normal. Miscellaneous: No inguinal hernias or adenopathy. No ventral hernias. Bones: No suspicious bony lesions. Spine degenerative disc disease and facet arthropathy. Status post left hip arthroplasty. No vertebral body compression fractures. IMPRESSION: 1. No evidence of aortic dissection or aneurysm. 2. Mildly dilated loops of fluid-filled small bowel which could represent early small bowel obstruction, partial small bowel obstruction or ileus. Recommend CT scan of the abdomen and pelvis with IV and oral contrast when clinically feasible. 3. Severe splenomegaly of uncertain etiology. Spleen is suboptimally evaluated secondary to arterial phase image acquisition. 4. Small to moderate amount of ascites of uncertain etiology. 5. Possible inflammatory changes in left lower quadrant mesentery. Recommend standard CT scan of the abdomen and pelvis with oral and IV contrast when clinically feasible. 6. Cardiomegaly. 7. Atherosclerosis including the coronary vasculature. 8. Trace bilateral pleural effusions. 9. Colonic diverticulosis without definite evidence of diverticulitis. Dictated by: Candy Banks MD, PhD on 06/24/2020 at 8:52 Approved by: Candy Banks MD, PhD on 06/24/2020 at 9:08 ADDENDUM: This study was performed as a CT angiographic procedure which involves injection of contrast and scanning at the early arterial phase of dense contrast enhancement. As such contrast has not transit through the mesenteric circuit into the inferior and superior mesenteric veins. Hepatic arterial flow into the liver through the stephon hepatis is well visualized. The splenic and superior mesenteric vein structures are not contrast opacified at this stage of contrast infusion. An abnormal morphology of the stephon hepatis is not identified but ultrasound scanning could be utilized to accurately assess for patency of the portal vein. Repeat contrast infusion would not be recommended at this time. Dictated by: Bayron Del Toro M.D. on 06/24/2020 at 9:55 Approved by: Bayron Del Toro M.D. on 06/24/2020 at 9:58 Addendum Dictated By:Bayron Del Toro MDAddendum Signed By:Addendum Cosigned By:DD/ TD/TT: 06/24/2003/16/1000 PROCEDURE: CT ANGIO CHEST ABDOMEN PELVIS INDICATIONS: LLQ pain radiates to chest x 1 day TECHNIQUE: Precontrast 5 mm thick sections acquired from the lung apices to the iliac crests. After the administration of intravenous contrast, 2.5 mm thick sections again acquired from the lung apices to the iliac crests. Maximum intensity projection (MIP) oblique sagittal and coronal reformats were then acquired. For radiation dose reduction, the following was used: automated exposure control. COMPARISON: None. FINDINGS: Image quality: Excellent. AORTA: Intramural hematoma: Absent Maximum hematoma thickness: Applicable. Focal contrast enhancement: Intramural blood pool (< 2 mm neck or imperceptible communication with aortic lumen): Absent. Ulcer-like projection (broad communication with aortic lumen > 3 mm): Absent . Dissection: Absent [place] classification: Not applicable. Maximum aortic diameter: 4.1 cm. [If [place] A dissection, > 5.0 cm has a poorer prognosis. If [place] B dissection, > 4.0 cm has a poorer prognosis.] Periaortic hematoma: Absent. CHEST: Lungs and pleura: No acute airspace opacities. Trace bilateral pleural fluid collections. No pneumothorax. Central and peripheral airways are patent and normal in caliber. Mediastinum: Heart enlarged No pericardial effusion. There is reflux of contrast material into the IVC and hepatic veins. Atherosclerotic calcifications are noted in the aorta, great vessels and the coronary vasculature. Postsurgical changes compatible with aortic valve replacement noted. No mediastinal or hilar adenopathy by size criteria. Central pulmonary arteries are normal in size. Esophagus is normal in caliber. No hiatal hernias. Bones and chest wall: No axillary adenopathy by size criteria. Thyroid gland is normal. No suspicious bony lesions. No vertebral body compression fractures. ABDOMEN: Vasculature: Celiac trunk and mesenteric arteries are patent. Renal arteries are also patent. Solid organs: Liver is normal in size and enhancement. Gallbladder is within normal limits. Biliary system is non dilated. Pancreas enhances normally. Spleen is enlarged measuring 18.1 centimeters in midclavicular line. No adrenal nodules. Both kidneys are normal in size and enhancement, without hydronephrosis. Peritoneum and bowel: Small hiatal hernia. No free air. Scattered colonic diverticuli without evidence of diverticulitis. Multiple mildly dilated, fluid-filled loops of small bowel noted in the abdomen measuring up to 3.2 centimeters. Possible inflammatory changes in left lower quadrant mesentery. Small to moderate amount of free fluid no free air. The appendix is not visualized and cannot be evaluated. Nodes and vessels: No retroperitoneal or mesenteric adenopathy by size criteria. Inferior vena cava is normal in morphology. Miscellaneous: No ventral hernias. PELVIS: Genitourinary: Bladder wall thickness is normal. Miscellaneous: No inguinal hernias or adenopathy. No ventral hernias. Bones: No suspicious bony lesions. Spine degenerative disc disease and facet arthropathy. Status post left hip arthroplasty. No vertebral body compression fractures. IMPRESSION: 1. No evidence of aortic dissection or aneurysm. 2. Mildly dilated loops of fluid-filled small bowel which could represent early small bowel obstruction, partial small bowel obstruction or ileus. Recommend CT scan of the abdomen and pelvis with IV and oral contrast when clinically feasible. 3. Severe splenomegaly of uncertain etiology. Spleen is suboptimally evaluated secondary to arterial phase image acquisition. 4. Small to moderate amount of ascites of uncertain etiology. 5. Possible inflammatory changes in left lower quadrant mesentery. Recommend standard CT scan of the abdomen and pelvis with oral and IV contrast when clinically feasible. 6. Cardiomegaly. 7. Atherosclerosis including the coronary vasculature. 8. Trace bilateral pleural effusions. 9. Colonic diverticulosis without definite evidence of diverticulitis. Dictated by: Candy Banks MD, PhD on 06/24/2020 at 8:52 Approved by: Candy Banks MD, PhD on 06/24/2020 at 9:08 ECG Data Attestation: I personally reviewed and interpreted this ECG as follows: Prior ECG tracings: available for review Interpretation: AFib with rapid ventricular response rate of 101, QRS of 94 and QTC of 469. Patient does have inverted T-waves in 1 aVL. This is not appreciated on prior EKG from 09/16/2018. No other new ST segment changes are appreciated on today's EKG. MDM Narrative Medical decision making narrative: This is a 75-year-old male who presents with left lower quadrant pain radiating to his anterior chest. On evaluation appears patient has splenomegaly as well as info may or med changes to the mesentery patient is changes on his CT imaging possibly consistent with an ileus or small- bowel obstruction although patient has had some nausea he has not had any vomiting and has had normal bowel movements making this unlikely. Discussed with patient there is differential. He does have abnormal labs including leukocytosis, thrombocytopenia and elevated liver enzymes. Patient CTA notes celiac trunk and mesenteric arteries are patent, patient has enlarged splenomegaly without other acute changes to the solid organs, CT was reviewed with Radiology and they do not appreciate any obvious portal vein thrombosis although splinic veins are not as well visualized. Patient is chronically on Eliquis which makes thrombosis less likely. Hepatitis panel was sent. Discussed with patient there is a wide differential which would include malignancy as well as other potential causes and he needs close repeat evaluation patient was asked return if he is having worsening symptoms. All questions were answered return precautions were discussed. Patient also noted have bilateral pleural effusions as well as elevated BNP and he has had his Bumex increased for 1 day so he was recommended to continue with this. Discharge Plan Departure Patient Disposition: Home Clinical Impression: Splenomegaly, Abdominal pain Activity Restrictions/Additional Instructions: Follow up with your physician for recheck on Friday. You will need to follow up with your physician regarding your enlarged spleen as well as the small amount of ascites on your imaging. Your imaging today shows several changes including a very enlarged spleen, I do not have any prior imaging to know if this was present in the past. Inflammatory changes in the left lower quadrant of your abdomen as well as trace bilateral pleural effusions. There are some changes noted in the small bowel but these are not consistent with your current symptoms and I do not suspect that you have a bowel obstruction at this time. Take antibiotics until completely gone. Increase your bumex as discussed with your geophysical engineer yesterday. You may take pain medication as prescribed this medication can make you sleepy do not drive, perform hazardous activities or make any major decisions while taking it. This medication will also make you constipated to make sure take a stool softener once or twice daily until stools are soft and regular. Take antinausea medication, 1 tablet 20 minutes prior to pain medication. You may take this medication every 6 hours as needed. Prescription to [facility]. Continue home medications as prescribed. Please return for fevers, new or worsening abdominal, back or flank pain, chest pain, lightheadedness or passing out, persistent vomiting, black or bloody stools or if you are not passing any stool or flatus or having worsening distention of your abdomen. Prescriptions: New ciprofloxacin HCl 500 mg tablet 500 mg PO BID Qty: 20 RF: 0 furosemide [Lasix] 40 mg tablet 40 mg PO DAILY Qty: 5 RF: 0 oxycodone 5 mg tablet 5 mg PO Q6H PRN (Reason: pain) Qty: 10 RF: 0 ondansetron HCl [Zofran] 4 mg tablet 4 mg PO Q6H PRN (Reason: nausea and vomiting) Qty: 14 RF: 0 Discontinued furosemide [Lasix] 20 mg tablet 20 mg PO DAILY Qty: 5 RF: 0 No Action atorvastatin 40 mg tablet 40 mg PO BEDTIME RF: 0 Eliquis 5 mg tablet 5 mg PO BID RF: 0 multivitamin Tablet 1 tab PO DAILY RF: 0 ascorbic acid (vitamin C) [Vitamin C] 1,000 mg Tablet 1 g PO DAILY RF: 0 verapamil 180 mg tablet extended release 180 mg PO BID RF: 0 metoprolol succinate 25 mg tablet extended release 24 hr 25 mg PO DAILY RF: 0 sertraline 50 mg tablet 50 mg PO DAILY RF: 0 cholecalciferol (vitamin D3) [Vitamin D3] 1,000 unit Capsule 1,000 unit PO DAILY RF: 0
[2020-06-24 08:00] LABS: Add Manual Diff / Slide Review NO; Basophils Absolute Auto 0 /uL (0-100); Basophils Percent Auto 0.2 % (0-2); Eosinophils Absolute Auto 0 /uL (0-450); Hematocrit 32.8 % (41-53); Hemoglobin 10.9 g/dL (13.5-17.5); Lymphocytes Absolute Auto 6700 /uL (1100-4500); Lymphocytes Percent Auto 34.6 % (25-40); Mean Corpuscular HGB Conc 33.1 % (30-36); Mean Corpuscular Hemoglobin 28.6 PG (26-34); Mean Corpuscular Volume 86.1 fL (80-100); Monocytes Absolute Auto 1800 /uL (0-900); Monocytes Percent Auto 9.5 % (3-14); Neutrophils Absolute Auto 10700 /uL (1500-7000); Neutrophils Percent Auto 55.7 % (50-75); Platelet Count 90 X10^3/uL (150-400); Red Cell Distribution Width 14.6 % (11.6-14.8); White Blood Cell Count 19.2 X10^3/uL (4.5-11.0)
[2020-06-24 08:13] LABS: INR 1.8 (0.9-1.3); Prothrombin Time 20.7 SECONDS (10.1-12.7)
[2020-06-24 08:14] LABS: Alanine Aminotransferase 40 IU/L (<50); Albumin 3.8 g/dL (3.5-5.0); Albumin Globulin Ratio 1.2 (1.0-2.8); Alkaline Phosphatase 138 U/L (38-126); Aspartate Aminotransferase 59 IU/L (17-59); BUN Creatinine Ratio 28.6 (6-22); Bilirubin Total 1.6 mg/dL (0.2-1.3); Blood Urea Nitrogen 24 mg/dL (9-20); Calcium 9.2 mg/dL (8.4-10.2); Carbon Dioxide 23 mmol/L (22-32); Chloride 100 mmol/L (98-107); Creatine Kinase 40 U/L (55-170); Estimated Glomerular Filt Rate > 60.0 mL/min (>60); Globulin 3.2 g/dL (1.7-4.1); Glucose 112 mg/dL (80-110); HEMOLYSIS < 15 (0-50); Lipase 26 U/L (23-300); Potassium 4.1 mmol/L (3.4-5.1); Sodium 132 mmol/L (137-145)
[2020-06-24 08:15] LABS: PTT Partial Thromboplastin Tim 36 SECONDS (26.4-36.2)
--- NOTE | 2020-06-24 08:17 | DI.CT.S_ITS ---
PROCEDURE: CT ANGIO CHEST ABDOMEN PELVIS INDICATIONS: LLQ pain radiates to chest x 1 day TECHNIQUE: Precontrast 5 mm thick sections acquired from the lung apices to the iliac crests. After the administration of intravenous contrast, 2.5 mm thick sections again acquired from the lung apices to the iliac crests. Maximum intensity projection (MIP) oblique sagittal and coronal reformats were then acquired. For radiation dose reduction, the following was used: automated exposure control. COMPARISON: None. FINDINGS: Image quality: Excellent. AORTA: Intramural hematoma: Absent Maximum hematoma thickness: Applicable. Focal contrast enhancement: Intramural blood pool (< 2 mm neck or imperceptible communication with aortic lumen): Absent. Ulcer-like projection (broad communication with aortic lumen > 3 mm): Absent . Dissection: Absent Flushing classification: Not applicable. Maximum aortic diameter: 4.1 cm. [If Adarsh A dissection, > 5.0 cm has a poorer prognosis. If Adarsh B dissection, > 4.0 cm has a poorer prognosis.] Periaortic hematoma: Absent. CHEST: Lungs and pleura: No acute airspace opacities. Trace bilateral pleural fluid collections. No pneumothorax. Central and peripheral airways are patent and normal in caliber. Mediastinum: Heart enlarged No pericardial effusion. There is reflux of contrast material into the IVC and hepatic veins. Atherosclerotic calcifications are noted in the aorta, great vessels and the coronary vasculature. Postsurgical changes compatible with aortic valve replacement noted. No mediastinal or hilar adenopathy by size criteria. Central pulmonary arteries are normal in size. Esophagus is normal in caliber. No hiatal hernias. Bones and chest wall: No axillary adenopathy by size criteria. Thyroid gland is normal. No suspicious bony lesions. No vertebral body compression fractures. ABDOMEN: Vasculature: Celiac trunk and mesenteric arteries are patent. Renal arteries are also patent. Solid organs: Liver is normal in size and enhancement. Gallbladder is within normal limits. Biliary system is non dilated. Pancreas enhances normally. Spleen is enlarged measuring 18.1 centimeters in midclavicular line. No adrenal nodules. Both kidneys are normal in size and enhancement, without hydronephrosis. Peritoneum and bowel: Small hiatal hernia. No free air. Scattered colonic diverticuli without evidence of diverticulitis. Multiple mildly dilated, fluid-filled loops of small bowel noted in the abdomen measuring up to 3.2 centimeters. Possible inflammatory changes in left lower quadrant mesentery. Small to moderate amount of free fluid no free air. The appendix is not visualized and cannot be evaluated. Nodes and vessels: No retroperitoneal or mesenteric adenopathy by size criteria. Inferior vena cava is normal in morphology. Miscellaneous: No ventral hernias. PELVIS: Genitourinary: Bladder wall thickness is normal. Miscellaneous: No inguinal hernias or adenopathy. No ventral hernias. Bones: No suspicious bony lesions. Spine degenerative disc disease and facet arthropathy. Status post left hip arthroplasty. No vertebral body compression fractures. IMPRESSION: 1. No evidence of aortic dissection or aneurysm. 2. Mildly dilated loops of fluid-filled small bowel which could represent early small bowel obstruction, partial small bowel obstruction or ileus. Recommend CT scan of the abdomen and pelvis with IV and oral contrast when clinically feasible. 3. Severe splenomegaly of uncertain etiology. Spleen is suboptimally evaluated secondary to arterial phase image acquisition. 4. Small to moderate amount of ascites of uncertain etiology. 5. Possible inflammatory changes in left lower quadrant mesentery. Recommend standard CT scan of the abdomen and pelvis with oral and IV contrast when clinically feasible. 6. Cardiomegaly. 7. Atherosclerosis including the coronary vasculature. 8. Trace bilateral pleural effusions. 9. Colonic diverticulosis without definite evidence of diverticulitis. Dictated by: Candy Banks MD, PhD on 06/24/2020 at 8:52 Approved by: Candy Banks MD, PhD on 06/24/2020 at 9:08
[2020-06-24 08:23] LABS: NT-proBNP (BNP-Adult 18+) 3660 pg/mL (<450)
[2020-06-24 08:26] LABS: Troponin I < 0.012 ng/mL (0.01-0.034)
[2020-06-24] MEDS: MORPHINE 4 MG/ML INJ IV (08:26)
[2020-06-24] MEDS: ONDANSETRON 4 MG/2 ML INJ IV (08:26)
[2020-06-24 08:28] LABS: Lactate (Lactic Acid) 1.1 mmol/L (0.7-2.1)
[2020-06-24] MEDS: SODIUM CHLORIDE 0.9% 1,000 ML 150 ML IV (09:25)
[2020-06-24] MEDS: OXYCODONE IR 5 MG TABLET PO (10:37)
--- NOTE | 2020-06-24 10:58 | PC.NURSE ---
Spoke to daughter Jessica. Updated on plan of care and result findings. No further questions. 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 Disc given with all CT scans and copy of lab work. No further question from pt or family.
[2020-06-25 04:36] LABS: HBsAg Screen Negative (Negative); Hepatitis A Antibody IgM Negative (Negative); Hepatitis B Core Antibody IgM Negative (Negative); Hepatitis C Antibody 0.3 s/co ratio (0.0-0.9)
== END 2020-06-24 11:00 | disposition home or self-care (01) ==
PROVIDERS: Emergency Provider Emergency Medicine
DX: R16.1 Splenomegaly, not elsewhere classified (principal); R10.32 Left lower quadrant pain
CPT/HCPCS: 36415; 71045; 71275; 74174; 80053; 80074; 82550; 83605; 83690; 83880; 84484; 85025; 85610; 85730; 87040; 93005; 96361; 96374; 96375; 99285; J2270; J2405; Q9967

== ENCOUNTER 2020-06-25 11:21 | Emergency (ER) | payer MEDICARE, OTHER, SELFPAY ==
[2020-06-25] VITALS (20 sets, daily range): BP systolic 107–141; BP diastolic 67–104; PULSE 110–133; RESP 12–25; TEMP 37–38.2; O2SAT 91–96; BMI 24.4
--- NOTE | 2020-06-25 11:41 | ED_ITS ---
HPI - Abdominal Pain General Chief Complaint: Abdominal Pain Stated Complaint: pain in left side Time Seen by Provider: 06/25/20 11:41 Source: patient and old records reviewed Mode of arrival: Ambulatory Limitations: no limitations History of Present Illness HPI narrative: This is a 75-year-old male who comes to emergency department with complaint of left lower and upper abdominal pain radiating to his chest. Marzena fry was seen by myself yesterday and was noted to have splenomegaly along with some possible changes to the mesentery but no obvious changes such as colitis or diverticulitis. Patient had elevated white count but no fever. He is febrile here in the department although he does not appreciate any fevers at home. He states he was doing well overnight he had taken 1 oxycodone. When he awoke he had an episode of coughing which dramatically increased his pain and he took 2 tablets of oxycodone with moderate improvement. Patient continued to feel uncomfortable and returned. He continues to have some shortness of breath consistent with yesterday Um and states he feels like he has some increased swelling in his legs. He denies any nausea or vomiting. He had a bowel movement today which he states was soft and regular and has not appreciate any bright red blood or melena. Patient has had normal urination with no issues or dysuria, urgency or frequency. 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 He did start the oral antibiotics prescribed. Related Data Home Medications Medication Instructions Recorded Confirmed apixaban [Eliquis] 5 mg PO BID 09/16/18 06/25/20 ascorbic acid (vitamin C) [Vitamin 1 g PO DAILY 09/16/18 09/16/18 C] atorvastatin 40 mg PO BEDTIME 09/16/18 09/16/18 cholecalciferol (vitamin D3) 1,000 unit PO DAILY 09/16/18 09/16/18 [Vitamin D3] metoprolol succinate 25 mg PO BID 09/16/18 06/25/20 multivitamin 1 tab PO DAILY 09/16/18 09/16/18 sertraline 100 mg PO DAILY 09/16/18 06/25/20 diltiazem HCl 120 mg PO DAILY 06/25/20 06/25/20 Previous Rx's Medication Instructions Recorded ciprofloxacin HCl 500 mg PO BID #20 tab 06/24/20 furosemide [Lasix] 40 mg PO DAILY #5 tab 06/24/20 ondansetron HCl [Zofran] 4 mg PO Q6H PRN #14 tab 06/24/20 oxycodone 5 mg PO Q6H PRN #10 tab 06/24/20 Allergies Allergy/AdvReac Type Severity Reaction Status Date / Time ampicillin Allergy Verified 06/25/20 13:23 Review of Systems Review of Systems ROS Unobtainable: All systems reviewed & are unremarkable except as noted in HPI and below Patient History Medical History A-fib CVA (cerebral vascular accident) Hyperlipidemia Surgical History H/O aortic valve replacement Social History Smoking Status: Never smoker Smoking Status: Never smoker alcohol intake frequency: 0-2 drinks per day Substance Use Type: does not use Exam Narrative Exam Narrative: GENERAL: Alert and oriented x three, elderly male in mild distress. HEENT: Head normocephalic, atraumatic, EOMI, pupils reactive, face symmetric, moist mucous membranes NECK: Supple, full range of motion CARDIOVASCULAR: Irregular rate and mildly tachycardic rhythm without murmurs, rubs or gallops. Positive for JVD. Trace edema bilateral lower extremities. RESPIRATORY: Breath sounds equal bilaterally, no wheezes rales or rhonchi. ABDOMEN: Soft, left lower and upper quadrant tenderness. Normoactive bowel sounds all 4 quadrants. No guarding or rebound, rigidity, no mass. Nondistended. : No CVA tenderness EXTREMITIES: Normal range of motion. Neurovascularly intact NEUROLOGICAL: Cranial nerves II through XII grossly intact. Moving all extremities SKIN: Warm, dry, no petechiae, no rashes or lesions. Initial Vital Signs Initial Vital Signs: Vital Signs Temperature 100.8 F H 06/25/20 11:32 Pulse Rate 110 H 06/25/20 11:32 Respiratory Rate 24 06/25/20 11:32 Blood Pressure 136/104 H 06/25/20 11:32 Pulse Oximetry 95 06/25/20 11:32 Course Orders Ordered: ED Orders 06/25/20 11:34 Complete Blood Count AUTO DIFF Stat Comprehensive Metabolic Panel Stat Lactate (Lactic Acid) Stat Lipase Stat NT-proBNP (BNP-Adult 18+) Stat Partial Thromboplastin Time Stat Procalcitonin Stat Prothrombin Time INR Stat Troponin & CK Cardiac Panel Stat 06/25/20 11:41 EKG-12 Lead Stat 06/25/20 12:03 COVID19 - ADMIT (SP[employer] TE[employer]ER swab/PCR) Stat 06/25/20 12:08 Blood Culture Stat 06/25/20 12:51 CT abdomen pelvis w con Stat Ondansetron HCl (Ondansetron 4 Mg/2 Ml Inj) 4 mg IV Q6HR PRN PRN Reason: Nausea And Vomiting Last Admin: 06/25/20 11:50 Dose: 4 mg Documented by: SILVINA Verapamil HCl (Verapamil Sr 180 Mg Tablet) 180 mg PO DAILY GABO Discontinued Medications Hydromorphone HCl (Hydromorphone 1 Mg Inj) 1 mg IV NOW ONE Stop: 06/25/20 11:44 Last Admin: 06/25/20 11:50 Dose: 1 mg Documented by: SILVINA Hydromorphone HCl (Hydromorphone 1 Mg Inj) 1 mg IV NOW ONE Stop: 06/25/20 15:33 Last Admin: 06/25/20 15:55 Dose: 1 mg Documented by: MERCY Hydromorphone HCl (Hydromorphone 1 Mg Inj) 1 mg IV NOW ONE Stop: 06/25/20 18:38 Sodium Chloride (Normal Saline 0.9%) 1,000 mls @ 1,000 mls/hr IV BOLUS ONE Stop: 06/25/20 12:40 Last Admin: 06/25/20 11:50 Dose: 1,000 mls/hr Documented by: SILVINA Metronidazole (Flagyl) 500 mg in 100 mls @ 100 mls/hr IV NOW ONE Stop: 06/25/20 13:43 Last Infusion: 06/25/20 14:24 Dose: 0 mls/hr Documented by: Admin: 06/25/20 13:18 Dose: 100 mls/hr Documented by: SILVINA Levofloxacin (Levaquin) 750 mg in 150 mls @ 100 mls/hr IV NOW ONE Stop: 06/25/20 14:13 Last Infusion: 06/25/20 17:06 Dose: 0 mls/hr Documented by: Admin: 06/25/20 14:24 Dose: 100 mls/hr Documented by: SILVINA Metoprolol Succinate (Metoprolol Er 25 Mg Tablet) 25 mg PO NOW ONE Stop: 06/25/20 17:34 Last Admin: 06/25/20 18:32 Dose: 25 mg Documented by: SILVINA Consultations Consultation #1: Discussed with Dr. Rock with general surgery, CT pending but patient has returned and meets septic criteria making infection likely cause today. Images reviewed and case discussed, feels antibiotics appropriate but not acute surgical and request admit to medicine. Time: 13:12 Consultation #2: Adolfo hospitalist at [facility]. He is concerned about possible endocarditis and asked for transfer for subspecialty care including Cardiology for possible AC. Time: 13:30 Consultation #3: Chani cardiology with [facility]. Unsure of possible cause but does not feel highly suspicious for endocarditis. He happy to consult as needed but feels patient would be more appropriate at the other [facility] facility where they have additional specialty coverage. Time: 16:36 Additional Consultation(s): 1711, Dr. Sethi accepts for transfer. Reviewed patient's labs, recent AFib, CHF which is likely slightly hoarse in from fluids. Patient appears have an infectious process but unclear exact source although had some mesenteric inflammatory changes which have mildly improved on imaging but with worsening white count, positive procalcitonin. Negative blood cultures. Patient's platelets have been chronically low but are decreased. He has a chronic anemia. Lab abnormalities. He does have elevated BNP but no clear pulmonary edema on angiography but clinically does appear to have some CHF. Patient is COVID negative. Hepatitis panel was sent yesterday and so far has been negative. Patient was covered with Flagyl and Levaquin. He continues to have some AFib with RVR but has been consistently 1 teens in the department. He had not had his afternoon medications and these were ordered. Vital Signs Vital signs: Vital Signs - 8 hr 06/25/20 11:32 06/25/20 11:34 06/25/20 11:38 Temperature 100.8 F H Pulse Rate 110 H 121 H 118 H Respiratory Rate 24 25 H Blood Pressure 136/104 H 129/87 Pulse Oximetry 95 96 96 06/25/20 12:00 06/25/20 12:30 06/25/20 13:00 Temperature 98.6 F Pulse Rate 121 H 118 H 112 H Respiratory Rate 20 12 12 Blood Pressure 117/80 110/81 118/69 Pulse Oximetry 94 93 93 06/25/20 13:30 06/25/20 14:00 06/25/20 14:30 Temperature Pulse Rate 118 H 116 H 114 H Respiratory Rate 13 14 24 Blood Pressure 118/77 107/78 114/84 Pulse Oximetry 92 92 93 06/25/20 15:00 06/25/20 15:25 06/25/20 15:30 Temperature Pulse Rate 111 H 118 H 115 H Respiratory Rate 21 24 24 Blood Pressure 112/67 124/85 126/93 H Pulse Oximetry 92 95 94 06/25/20 16:00 06/25/20 16:30 06/25/20 17:00 Temperature Pulse Rate 121 H 122 H 121 H Respiratory Rate 15 14 19 Blood Pressure 141/74 H 116/70 129/74 Pulse Oximetry 91 95 95 06/25/20 17:30 06/25/20 17:53 06/25/20 18:00 Temperature Pulse Rate 126 H 125 H 133 H Respiratory Rate 21 20 21 Blood Pressure 121/84 123/91 H 126/90 Pulse Oximetry 95 91 94 06/25/20 18:30 06/25/20 18:32 Temperature Pulse Rate 125 H 125 H Respiratory Rate 18 Blood Pressure 125/76 125/76 Pulse Oximetry 93 MDM - Abdominal Pain Lab Data Attestation: I reviewed the patient's lab results. Result diagrams: 06/25/20 11:34 06/25/20 11:34 Labs: Lab Results 06/25/20 06/25/20 06/25/20 Range/Units 11:34 11:34 11:34 WBC 30.9 H* D (4.5-11.0) X10^3/uL RBC 3.80 L (4.5-5.9) X10^6/uL Hgb 10.9 L (13.5-17.5) g/dL Hct 33.5 L (41-53) % MCV 88.3 (80-100) fL MCH 28.6 (26-34) PG MCHC 32.4 (30-36) % RDW 14.6 (11.6-14.8) % Plt Count 109 L (150-400) X10^3/uL Neut % (Auto) Not Reportable Lymph % (Auto) Not Reportable [place] % (Auto) Not Reportable Eos % (Auto) Not Reportable Baso % (Auto) Not Reportable Lymph # (Auto) Not Reportable [place] # (Auto) Not Reportable Baso # (Auto) Not Reportable Total Counted 100 Seg Neutrophils % 41.0 (38-70) % Band Neutrophils % 7.0 (3-7) % Lymphocytes % (Manual) 42.0 (25-45) % Monocytes % (Manual) 10.0 (2-11) % Neutrophils # (Manual) 77197 H (1926-2242) /uL Platelet Estimate Decreased on smear RBC Morphology Normal morphology PT 24.1 H (10.1-12.7) SECONDS INR 2.1 H (0.9-1.3) APTT 35 (26.4-36.2) SECONDS Sodium 131 L (137-145) mmol/L Potassium 4.6 (3.4-5.1) mmol/L Chloride 96 L (98-107) mmol/L Carbon Dioxide 24 (22-32) mmol/L BUN 31 H (9-20) mg/dL Creatinine 1.14 (0.66-1.25) mg/dL Estimated GFR > 60.0 (>60) mL/min BUN/Creatinine Ratio 27.2 H (6-22) Glucose 107 (80-110) mg/dL Lactate (0.7-2.1) mmol/L Calcium 9.1 (8.4-10.2) mg/dL Total Bilirubin 1.1 (0.2-1.3) mg/dL AST 62 H (17-59) IU/L ALT 35 (<50) IU/L Alkaline Phosphatase 128 H (38-126) U/L Total Creatine Kinase (55-170) U/L CK-MB (CK-2) CK-MB (CK-2) Rel Index Troponin I (0.01-0.034) ng/mL NT-Pro-B Natriuret Pep (<450) pg/mL Total Protein 7.3 (6.3-8.2) g/dL Albumin 4.0 (3.5-5.0) g/dL Globulin 3.3 (1.7-4.1) g/dL Albumin/Globulin Ratio 1.2 (1.0-2.8) Lipase 27 (23-300) U/L Procalcitonin 1.32 H (<0.5) ng/mL SARS-CoV-2 (PCR) (Negative) 06/25/20 06/25/20 06/25/20 Range/Units 11:34 11:34 12:03 WBC (4.5-11.0) X10^3/uL RBC (4.5-5.9) X10^6/uL Hgb (13.5-17.5) g/dL Hct (41-53) % MCV (80-100) fL MCH (26-34) PG MCHC (30-36) % RDW (11.6-14.8) % Plt Count (150-400) X10^3/uL Neut % (Auto) Lymph % (Auto) [place] % (Auto) Eos % (Auto) Baso % (Auto) Lymph # (Auto) [place] # (Auto) Baso # (Auto) Total Counted Seg Neutrophils % (38-70) % Band Neutrophils % (3-7) % Lymphocytes % (Manual) (25-45) % Monocytes % (Manual) (2-11) % Neutrophils # (Manual) (2766-7087) /uL Platelet Estimate RBC Morphology PT (10.1-12.7) SECONDS INR (0.9-1.3) APTT (26.4-36.2) SECONDS Sodium (137-145) mmol/L Potassium (3.4-5.1) mmol/L Chloride (98-107) mmol/L Carbon Dioxide (22-32) mmol/L BUN (9-20) mg/dL Creatinine (0.66-1.25) mg/dL Estimated GFR (>60) mL/min BUN/Creatinine Ratio (6-22) Glucose (80-110) mg/dL Lactate 1.6 (0.7-2.1) mmol/L Calcium (8.4-10.2) mg/dL Total Bilirubin (0.2-1.3) mg/dL AST (17-59) IU/L ALT (<50) IU/L Alkaline Phosphatase (38-126) U/L Total Creatine Kinase 37 L (55-170) U/L CK-MB (CK-2) TNP CK-MB (CK-2) Rel Index TNP Troponin I < 0.012 (0.01-0.034) ng/mL NT-Pro-B Natriuret Pep 3360 H (<450) pg/mL Total Protein (6.3-8.2) g/dL Albumin (3.5-5.0) g/dL Globulin (1.7-4.1) g/dL Albumin/Globulin Ratio (1.0-2.8) Lipase (23-300) U/L Procalcitonin (<0.5) ng/mL SARS-CoV-2 (PCR) Negative (Negative) Point of care testing: Urine Dip Bedside Urine Glucose Negative Bedside Urine Bilirubin - Negative Bedside Urine Ketone - Negative Urine Specific [place] 1.015 Bedside Urine Occult Blood - Negative Bedside Urine pH 6 Bedside Urine Protein - Negative Bedside Urine Urobilinogen - Negative Bedside Urine Nitrite - Negative Bedside Urine Leukocytes - Negative Esterase Imaging Data CT scan - abdomen/pelvis: Radiologist's Impression: [address] [id number] Scan ReportSigned Patient: Joel Shankar OMR#: [id number]: 4Acct:[id number]/Sex: 75 / MDate of Service: 06/25/20Loc: EDAccession Number: [id number] Procedure: CT abdomen pelvis w con Ordering Provider: Coby Serna D.O. PROCEDURE: CT ABDOMEN PELVIS W CON INDICATIONS: LLQ pain, splenomegaly, mesenteric changes, sepsis criteria. TECHNIQUE: After the administration of intravenous contrast, 5 mm thick sections acquired from the diaphragm to the symphysis. 5 mm coronal and sagittal reformats were acquired. For radiation dose reduction, the following was used: automated exposure control, adjustment of mA and/or kV according to patient size. COMPARISON: [facility], CT, CT ANGIO CHEST ABDOMEN PELVIS, 06/24/2020, 8:31. FINDINGS: Image quality: Excellent. ABDOMEN: Lung bases: Small left and trace right pleural effusion slightly increased from prior exam. There is adjacent atelectasis. Cardiomegaly. Aortic valvular replacement. Coronary vascular calcifications. No pericardial effusion.. Solid organs: Liver is normal in size and enhancement. Gallbladder is within normal limits. Biliary system is nondilated. The pancreas enhances normally. No suspicious adrenal nodule. Kidneys are normal in size and enhancement. Stable left-sided simple cysts. No hydronephrosis. Ureters are difficult to follow given ascites and lack of significant intra-abdominal fat. No definite dilation. Marked splenomegaly is again identified. Subtle peripheral attenuation likely due to phase of exam. Peritoneum and bowel: The stomach is nondistended somewhat limiting evaluation. Proximal small bowel is unremarkable. There are multiple prominent loops of small bowel without significant dilation on today's examination. This is somewhat decreased from comparison from yesterday. The colon demonstrates scattered diverticula. No discrete wall thickening identified. There is moderate amount of ascites in mesenteric edema.. Nodes and vessels: No retroperitoneal or mesenteric adenopathy by size criteria. inferior vena cava are normal in size aorta demonstrates diffuse vascular calcifications. No evidence of aneurysm. The portal vein is not opacified given late arterial study on today's exam, but appears normal in size. Miscellaneous: No ventral hernias. PELVIS: Genitourinary: Bladder wall thickness is normal. The bladder is opacified with contrast likely from recent contrast-enhanced study done yesterday. Miscellaneous: No inguinal hernias or adenopathy. Bones: No suspicious bony lesions. Status post left total hip arthroplasty. Degenerative changes of the right hip and spine. No acute osseous abnormality. Grade 1 anterolisthesis of L4 on L5 and retrolisthesis of L5 on S1. No vertebral body compression fractures. IMPRESSION: From recent study done yesterday there is slight decrease in prominence of the small bowel making small bowel obstruction less likely. There is however mild prominence of multiple loops of small bowel remaining. Moderate amount of ascites as well as small left sided pleural effusion and trace right-sided pleural effusion which are slightly increased from yesterday's exam. There is unchanged splenomegaly. Study was performed in the late arterial phase, likely due to patient's known heart failure. The portal vein as well as the mesenteric veins were unable to be fully evaluated. No significant change in recommendation for consideration for ultrasound to evaluate the portal vein. The portal vein is however normal in size. Dictated by: Oswald Munoz D.O. on 06/25/2020 at 12:39 Approved by: Oswald Munoz D.O. on 06/25/2020 at 13:03 ECG Data Attestation: I personally reviewed and interpreted this ECG as follows: Prior ECG tracings: available for review Interpretation: AFib RVR, rate of 118 QRS 88 QTC of 482. No acute ST elevation appreciated. MDM Narrative Medical decision making narrative: A 75-year-old male who presents for the 2nd time in 24 hours with left lower quadrant abdominal that radiated up towards the chest. Patient was evaluated yesterday the setting of hypertension with angiography of the chest abdomen pelvis and no dissection or aneurysm was noted but patient did have bilateral pleural effusions, he also had significant splenomegaly and inflammatory changes of the mesentery but without any clear colitis, diverticulosis or other infectious changes noted. Patient had possible changes consistent with bowel obstruction but his physical exam and history are inconsistent. Small to moderate amount of ascites were noted but is not clearly obvious on physical exam. Have cardiomegaly consistent with his prior cardiac history. Worsening from 19-30 in the last 24 hours. A stable anemia with a hemoglobin to 10 and most recent was 11 in August of 2018 and a chronic thrombocytopenia but lower and then 0109 range. Patient has normal morphology and manual neutrophils are 14,832. Patient has some mild electrolyte changes including sodium 131, chloride 96 and a BUN of 31. GFR is normal with AST of 62 but normal bilirubin and normal ALT and a very mildly elevated alk-phos and normal lipase. Troponin is negative x2 today as well as yesterday. BNP is in t he 3300 range mildly improved from 30/6 100 yesterday. Patient does not have pulmonary edema on his imaging lot does appear clinically fluid overloaded and received fluids which likely does not improve his symptoms. His procalcitonin is positive at 1.32 and blood cultures are negative from yesterday and are currently pending today. COVID swab is negative any had hepatitis panel which is negative. Discussed with general surgery also with Radiology for recommendations on choice of imaging today. And also reviewed the findings with the radiologist. Also discussed with our hospitalist here who feels patient would benefit from additional subspecialty care which we do not have available. Patient and I had discussed wide differential initially was concerning for malignancy but patient did have a fever today temp orally although not orally. Patient does have a process of procalcitonin making infection much more likely. He was covered with IV antibiotics for intra-abdominal process although there was some discussion about possible endocarditis. Discussed with Dr. Sethi who accepts for transfer. Patient has been AFib with RVR he has been in the 120 range in his maximum and she feels comfortable transfer they will change him in terms of his bed status if he has any heart rates greater than 120 upon his arrival. Patient was given his evening doses of metoprolol but apixaban was held in case they feel patient may need any intervention. Discharge Plan Departure Patient Disposition: [facility] Clinical Impression: SIRS (systemic inflammatory response syndrome), Splenomegaly, Atrial fibrillation with RVR, CHF (congestive heart failure) Prescriptions: No Action atorvastatin 40 mg tablet 40 mg PO BEDTIME RF: 0 Eliquis 5 mg tablet 5 mg PO BID RF: 0 multivitamin Tablet 1 tab PO DAILY RF: 0 ascorbic acid (vitamin C) [Vitamin C] 1,000 mg Tablet 1 g PO DAILY RF: 0 metoprolol succinate 25 mg tablet extended release 24 hr 25 mg PO BID RF: 0 sertraline 50 mg tablet 100 mg PO DAILY RF: 0 cholecalciferol (vitamin D3) [Vitamin D3] 1,000 unit Capsule 1,000 unit PO DAILY RF: 0 ciprofloxacin HCl 500 mg tablet 500 mg PO BID Qty: 20 RF: 0 furosemide [Lasix] 40 mg tablet 40 mg PO DAILY Qty: 5 RF: 0 oxycodone 5 mg tablet 5 mg PO Q6H PRN (Reason: pain) Qty: 10 RF: 0 ondansetron HCl [Zofran] 4 mg tablet 4 mg PO Q6H PRN (Reason: nausea and vomiting) Qty: 14 RF: 0 diltiazem HCl 120 mg Capsule,Extended Release 24 Hr 120 mg PO DAILY RF: 0
[2020-06-25 11:50] LABS: Hematocrit 33.5 % (41-53); Hemoglobin 10.9 g/dL (13.5-17.5); Mean Corpuscular HGB Conc 32.4 % (30-36); Mean Corpuscular Hemoglobin 28.6 PG (26-34); Mean Corpuscular Volume 88.3 fL (80-100); Platelet Count 109 X10^3/uL (150-400); Red Cell Distribution Width 14.6 % (11.6-14.8)
[2020-06-25] MEDS: ONDANSETRON 4 MG/2 ML INJ IV (11:50)
[2020-06-25] MEDS: SODIUM CHLORIDE 0.9% 1,000 ML 1000 ML IV (11:50)
[2020-06-25] MEDS: HYDROMORPHONE 1 MG INJ IV ×3 (11:50→18:47)
[2020-06-25 11:54] LABS: Add Manual Diff / Slide Review YES; White Blood Cell Count 30.9 X10^3/uL (4.5-11.0)
[2020-06-25 11:57] LABS: Blood Urea Nitrogen 31 mg/dL (9-20); Carbon Dioxide 24 mmol/L (22-32); Chloride 96 mmol/L (98-107); Potassium 4.6 mmol/L (3.4-5.1); Sodium 131 mmol/L (137-145)
[2020-06-25 11:58] LABS: Alanine Aminotransferase 35 IU/L (<50); Albumin Globulin Ratio 1.2 (1.0-2.8); Alkaline Phosphatase 128 U/L (38-126); Aspartate Aminotransferase 62 IU/L (17-59); BUN Creatinine Ratio 27.2 (6-22); Bilirubin Total 1.1 mg/dL (0.2-1.3); Calcium 9.1 mg/dL (8.4-10.2); Estimated Glomerular Filt Rate > 60.0 mL/min (>60); Globulin 3.3 g/dL (1.7-4.1); Glucose 107 mg/dL (80-110); HEMOLYSIS < 15 (0-50); Lactate (Lactic Acid) 1.6 mmol/L (0.7-2.1); Lipase 27 U/L (23-300); Total Protein 7.3 g/dL (6.3-8.2)
[2020-06-25 12:06] LABS: INR 2.1 (0.9-1.3); Prothrombin Time 24.1 SECONDS (10.1-12.7)
[2020-06-25 12:09] LABS: PTT Partial Thromboplastin Tim 35 SECONDS (26.4-36.2)
[2020-06-25 12:14] LABS: Procalcitonin 1.32 ng/mL (<0.5)
[2020-06-25 12:20] LABS: Neutrophils Absolute Manual 14832 /uL (3000-5900); Platelet Estimate Decreased on smear; RBC Morphology Normal Morphology; Total Cells Counted 100
--- NOTE | 2020-06-25 12:51 | DI.CT.S_ITS ---
PROCEDURE: CT ABDOMEN PELVIS W CON INDICATIONS: LLQ pain, splenomegaly, mesenteric changes, sepsis criteria. TECHNIQUE: After the administration of intravenous contrast, 5 mm thick sections acquired from the diaphragm to the symphysis. 5 mm coronal and sagittal reformats were acquired. For radiation dose reduction, the following was used: automated exposure control, adjustment of mA and/or kV according to patient size. COMPARISON: [facility], CT, CT ANGIO CHEST ABDOMEN PELVIS, 06/24/2020, 8:31. FINDINGS: Image quality: Excellent. ABDOMEN: Lung bases: Small left and trace right pleural effusion slightly increased from prior exam. There is adjacent atelectasis. Cardiomegaly. Aortic valvular replacement. Coronary vascular calcifications. No pericardial effusion.. Solid organs: Liver is normal in size and enhancement. Gallbladder is within normal limits. Biliary system is nondilated. The pancreas enhances normally. No suspicious adrenal nodule. Kidneys are normal in size and enhancement. Stable left-sided simple cysts. No hydronephrosis. Ureters are difficult to follow given ascites and lack of significant intra-abdominal fat. No definite dilation. Marked splenomegaly is again identified. Subtle peripheral attenuation likely due to phase of exam. Peritoneum and bowel: The stomach is nondistended somewhat limiting evaluation. Proximal small bowel is unremarkable. There are multiple prominent loops of small bowel without significant dilation on today's examination. This is somewhat decreased from comparison from yesterday. The colon demonstrates scattered diverticula. No discrete wall thickening identified. There is moderate amount of ascites in mesenteric edema.. Nodes and vessels: No retroperitoneal or mesenteric adenopathy by size criteria. inferior vena cava are normal in size aorta demonstrates diffuse vascular calcifications. No evidence of aneurysm. The portal vein is not opacified given late arterial study on today's exam, but appears normal in size. Miscellaneous: No ventral hernias. PELVIS: Genitourinary: Bladder wall thickness is normal. The bladder is opacified with contrast likely from recent contrast-enhanced study done yesterday. Miscellaneous: No inguinal hernias or adenopathy. Bones: No suspicious bony lesions. Status post left total hip arthroplasty. Degenerative changes of the right hip and spine. No acute osseous abnormality. Grade 1 anterolisthesis of L4 on L5 and retrolisthesis of L5 on S1. No vertebral body compression fractures. IMPRESSION: From recent study done yesterday there is slight decrease in prominence of the small bowel making small bowel obstruction less likely. There is however mild prominence of multiple loops of small bowel remaining. Moderate amount of ascites as well as small left sided pleural effusion and trace right-sided pleural effusion which are slightly increased from yesterday's exam. There is unchanged splenomegaly. Study was performed in the late arterial phase, likely due to patient's known heart failure. The portal vein as well as the mesenteric veins were unable to be fully evaluated. No significant change in recommendation for consideration for ultrasound to evaluate the portal vein. The portal vein is however normal in size. Dictated by: Oswald Munoz D.O. on 06/25/2020 at 12:39 Approved by: Oswald Munoz D.O. on 06/25/2020 at 13:03
[2020-06-25] MEDS: metroNIDAZOLE 500 MG/100 ML PIGGYBACK 100 MG IV (13:18)
[2020-06-25 13:19] LABS: Creatine Kinase 37 U/L (55-170)
[2020-06-25 13:25] LABS: COVID19 - ADMIT (NP swab/PCR) Negative (Negative)
[2020-06-25 13:31] LABS: NT-proBNP (BNP-Adult 18+) 3360 pg/mL (<450); Troponin I < 0.012 ng/mL (0.01-0.034)
[2020-06-25] MEDS: levoFLOXacin 750 MG/150 ML PIGGYBACK 100 MG IV (14:24)
[2020-06-25] MEDS: METOPROLOL ER 25 MG TABLET PO (18:32)
== END 2020-06-25 19:00 | disposition short-term general hospital (02) ==
PROVIDERS: Emergency Provider Emergency Medicine
DX: R16.1 Splenomegaly, not elsewhere classified (principal); R65.10 Systemic inflammatory response syndrome (SIRS) of non-infectious origin without acute organ dysfunction; I50.9 Heart failure, unspecified; I48.91 Unspecified atrial fibrillation; Z20.822 Contact with and (suspected) exposure to COVID-19
CPT/HCPCS: 36415; 74177; 80053; 81003; 82550; 83605; 83690; 83880; 84145; 84484; 85007; 85025; 85610; 85730; 87040; 87635; 93005; 96361; 96365; 96366; 96367; 96375; 96376; 99284; 99285; C9803; J1170; J1956; J2405; Q9967

== ENCOUNTER 2021-10-27 12:29 | Emergency (ER) | payer MEDICARE, OTHER, SELFPAY ==
--- NOTE | 2021-10-27 12:44 | DI.RAD.S_ITS ---
PROCEDURE: XR HIP W PEL IF DONE LT 2V INDICATIONS: r/o fx TECHNIQUE: AP pelvis and lateral view of the left hip acquired. COMPARISON: None. FINDINGS: Bones: Patient is status post left total hip arthroplasty, with hardware components in expected positions. There is a cortical step-off below the left greater trochanter on the lateral margin suggestive of minimally displaced intertrochanteric hip fracture. Soft tissues: Overlying postoperative changes are noted. No suspicious soft tissue densities. IMPRESSION: Intertrochanteric fracture involving the left femoroacetabular prosthesis. Dictated by: Eric Menjivar M.D. on 10/27/2021 at 13:01 Approved by: Eric Menjivar M.D. on 10/27/2021 at 13:05
--- NOTE | 2021-10-27 12:45 | DI.RAD.S_ITS ---
PROCEDURE: XR KNEE LT 3V INDICATIONS: r/o fx TECHNIQUE: 3 views of the knee were acquired. COMPARISON: None. FINDINGS: Bones: No fractures or dislocations. No suspicious bony lesions. Advanced tricompartmental osteoarthrosis most prominently medial patellofemoral compartment with marginal osteophytes, subchondral sclerosis, and bony deformity. Soft tissues: No joint effusion. Vascular calcifications. Chondrocalcinosis IMPRESSION: 1. No fracture. 2. Advanced osteoarthritic changes of the knee most prominent in the medial and patellofemoral compartments. 3. Chondrocalcinosis. Dictated by: Eric Menjivar M.D. on 10/27/2021 at 13:05 Approved by: Eric Menjivar M.D. on 10/27/2021 at 13:06
[2021-10-27 12:48] VITALS: BP 134/62; PULSE 91; RESP 18; TEMP 36.4; O2SAT 97; BMI 52.3
--- NOTE | 2021-10-27 14:17 | ED_ITS ---
HPI - Fall <Ubaldo Mckeon PA-C - Last Filed: 10/27/21 17:11> General Chief Complaint: Fall Stated Complaint: fell hit lt butt cheek hip & knee pain blood thin Time Seen by Provider: 10/27/21 12:47 Source: patient Mode of arrival: Ambulatory History of Present Illness HPI Narrative: Patient is 68-year-old male who presents to the emergency room today with left hip pain status post fall. States he tripped in the yd and fell over a water hose on that left side. Admits to also falling about 4 months ago that was also related to tripping. Before that his last fall was over 5 years ago. Admits to having a left hip replacement done about 8-10 years ago. Pain now is in his left hip area admits he can walk using the left hip but does not because it is very painful. Uses crutches to walk at this time. Did not hit his head in the fall and denies loss of consciousness double vision or any other neurological concerns related to this incident. Also denies any other concerns. Related Data Home Medications Medication Instructions Recorded Confirmed apixaban 5 mg tablet 5 mg PO BID 09/16/18 06/25/20 ascorbic acid (vitamin C) 1,000 mg 1 g PO DAILY 09/16/18 09/16/18 tablet (Vitamin C) atorvastatin 40 mg tablet 40 mg PO BEDTIME 09/16/18 09/16/18 cholecalciferol (vitamin D3) 25 1,000 unit PO DAILY 09/16/18 09/16/18 mcg (1,000 unit) capsule (Vitamin D3) metoprolol succinate 25 mg 25 mg PO BID 09/16/18 06/25/20 tablet,extended release 24 hr multivitamin 1 tab PO DAILY 09/16/18 09/16/18 sertraline 50 mg tablet 100 mg PO DAILY 09/16/18 06/25/20 diltiazem HCl 120 mg capsule,24 120 mg PO DAILY 06/25/20 06/25/20 hr,extended release Previous Rx's Medication Instructions Recorded ciprofloxacin HCl 500 mg tablet 500 mg PO BID #20 tabs 06/24/20 furosemide 40 mg tablet (Lasix) 40 mg PO DAILY #5 tabs 06/24/20 ondansetron HCl 4 mg tablet 4 mg PO Q6H PRN nausea and 06/24/20 (Zofran) vomiting #14 tabs oxycodone 5 mg tablet 5 mg PO Q6H PRN pain #10 tabs 06/24/20 oxycodone-acetaminophen 5 mg-325 1 tab PO Q8H PRN pain #10 tabs 10/27/21 mg tablet (Percocet) Allergies Allergy/AdvReac Type Severity Reaction Status Date / Time ampicillin Allergy Verified 06/25/20 13:23 Review of Systems <Ubaldo Mckeon PA-C - Last Filed: 10/27/21 17:11> Review of Systems Narrative: R.O.S.: General: No fever, chills or fatigue. Cardiovascular: No chest pain or palpitations Respiratory: No S.O.B. HEENT: No congestion, ear pain, rhinorrhea, sore throat or tinnitus Gastrointestinal: No nausea or vomiting Skin: No rash or associated abnormalities Musculoskeletal: Left hip pain Neurological: Awake, alert and in not apparent distress. No Headaches, changes in vision or other related neurological concerns. Patient History <RUDDY Patel Last Filed: 10/27/21 17:11> Medical History A-fib CVA (cerebral vascular accident) Hyperlipidemia Surgical History H/O aortic valve replacement Social History Smoking Status: Never smoker Smoking Status: Never smoker alcohol intake frequency: 0-2 drinks per day Substance Use Type: does not use Exam <RUDDY Patel Last Filed: 10/27/21 17:11> Narrative Exam Narrative: Physical Exam: ? General: normal appearance, well developed, well nourished, alert, and awake. Not in acute distress. ? Head: Normocephalic, no lesions. Chest: Lungs CTAB, no rales, rhonchi or wheezes. ?? Heart: RRR, no murmurs, rubs or gallops. Eyes: PERRLA, EOM's full, conjunctivae clear. ? Neuro: Physiological, no localizing findings, CN3-12 intact. ?? Extremities/musculoskeletal: Left hip has pain to palpation on the left lateral hip area. The area has no erythema or swelling noted on visual inspection. Patient able to flex and extend the left hip but with pain. ? Skin: Normal, no rashes, no lesions noted. ?? PSYCHIATRIC: The mood is good, no blunted affect. Speech is clear. Thought process is linear, thought content is appropriate. The voice is without significant inflection. Gastrointestinal: Soft; NT; ND; Pos BS with Neg. rebound tenderness. No scars or major deformities noted on Visual Inspection. Initial Vital Signs Initial Vital Signs: Vital Signs Temperature 97.6 F 10/27/21 12:48 Pulse Rate 91 H 10/27/21 12:48 Respiratory Rate 18 10/27/21 12:48 Blood Pressure 134/62 10/27/21 12:48 Pulse Oximetry 97 10/27/21 12:48 Oxygen Delivery Method 10/27/21 12:48 <DO Nela Pizano Last Filed: 10/28/21 07:31> Initial Vital Signs Initial Vital Signs: Vital Signs Temperature 97.6 F 10/27/21 12:48 Pulse Rate 91 H 10/27/21 12:48 Respiratory Rate 18 10/27/21 12:48 Blood Pressure 134/62 10/27/21 12:48 Pulse Oximetry 97 10/27/21 12:48 Oxygen Delivery Method 10/27/21 12:48 Course <Ubaldo Mckeon PA-C - Last Filed: 10/27/21 17:11> Orders Ordered: ED Orders 10/27/21 12:44 XR hip w pel if done LT 2V Stat 10/27/21 12:45 XR knee LT 3V Stat 10/27/21 14:24 XR chest 1V Stat 10/27/21 14:32 EKG-12 Lead Stat 10/27/21 15:11 Urinalysis and Microscopic Stat 10/27/21 16:19 CBC Auto Diff [Complete Blood Count AUTO DIFF] Stat CMP [Comprehensive Metabolic Panel] Stat Vital Signs Vital signs: Vital Signs - 8 hr 10/27/21 12:48 Temperature 97.6 F Pulse Rate 91 H Respiratory Rate 18 Blood Pressure 134/62 Pulse Oximetry 97 Oxygen Delivery Method Room Air <DO Nela Pizano Last Filed: 10/28/21 07:31> Orders Ordered: ED Orders 10/27/21 12:44 XR hip w pel if done LT 2V Stat 10/27/21 12:45 XR knee LT 3V Stat 10/27/21 14:24 XR chest 1V Stat 10/27/21 14:32 EKG-12 Lead Stat 10/27/21 15:11 Urinalysis and Microscopic Stat 10/27/21 16:19 CBC Auto Diff [Complete Blood Count AUTO DIFF] Stat CMP [Comprehensive Metabolic Panel] Stat Vital Signs Vital signs: Vital Signs - 8 hr 10/27/21 12:48 Temperature 97.6 F Pulse Rate 91 H Respiratory Rate 18 Blood Pressure 134/62 Pulse Oximetry 97 Oxygen Delivery Method Room Air MDM - Fall <Ubaldo Mckeon PA-C - Last Filed: 10/27/21 17:11> Lab Data Result diagrams: 10/27/21 16:19 10/27/21 16:19 Labs: Lab Results 10/27/21 10/27/21 10/27/21 Range/Units 15:11 16:19 16:19 WBC 11.9 H (4.5-11.0) X10^3/uL RBC 4.58 (4.5-5.9) X10^6/uL Hgb 14.2 (13.5-17.5) g/dL Hct 42.8 (41-53) % MCV 93.5 (80-100) fL MCH 31.0 (26-34) PG MCHC 33.1 (30-36) % RDW 13.8 (11.6-14.8) % Plt Count 192 (150-400) X10^3/uL Neut % (Auto) 86.7 H (50-75) % Lymph % (Auto) 3.5 L (25-40) % Stephen[place] % (Auto) 9.0 (3-14) % Eos % (Auto) 0.3 L (2-4) % Baso % (Auto) 0.5 (0-2) % Neut # (Auto) 82583 H (8808-3197) /uL Lymph # (Auto) 400 L (1923-0972) /uL Stephenson # (Auto) 1100 H (0-900) /uL Eos # (Auto) 0 (0-450) /uL Baso # (Auto) 100 (0-100) /uL Sodium 136 L (137-145) mmol/L Potassium 4.2 (3.4-5.1) mmol/L Chloride 103 (98-107) mmol/L Carbon Dioxide 27 (22-32) mmol/L BUN 25 H (9-20) mg/dL Creatinine 1.15 (0.66-1.25) mg/dL Estimated GFR > 60 (>60) mL/min BUN/Creatinine Ratio 21.7 (6-22) Glucose 95 (80-110) mg/dL Calcium 8.8 (8.4-10.2) mg/dL Total Bilirubin 0.9 (0.2-1.3) mg/dL AST 40 (17-59) IU/L ALT 44 (<50) IU/L Alkaline Phosphatase 119 (38-126) U/L Total Protein 7.3 (6.3-8.2) g/dL Albumin 4.1 (3.5-5.0) g/dL Globulin 3.2 (1.7-4.1) g/dL Albumin/Globulin Ratio 1.3 (1.0-2.8) Urine Color Yellow Urine Appearance Clear Urine pH 5.5 (4.5-8.0) Ur Specific [place] 1.015 (1.000-1.035) Urine Protein Negative (Negative) Urine Glucose (UA) Negative (Negative) g/dL Urine Ketones Negative (NEGATIVE) Urine Occult Blood Negative (Negative) Urine Nitrate Negative (Negative) Urine Bilirubin Negative (NEGATIVE) Urine Urobilinogen 0.2 (0.2) E.U./dL Ur Leukocyte Esterase Negative (NEGATIVE) Urine RBC None seen (0-5/HPF) Urine WBC None seen (0-5/HPF) Calcium Oxalate Crystal Few H Urine Bacteria None seen (None) Hyaline Casts 1-5/lpf (None) Ur Culture Indicated? Cult not indicated Imaging Data X ray hip: Radiologist's Impression: PROCEDURE:? XR HIP W PEL IF DONE LT 2V ? INDICATIONS:? r/o fx ? TECHNIQUE:? AP pelvis and lateral view of the left hip acquired.? ? COMPARISON:? None. ? FINDINGS:? ? Bones:? Patient is status post left total hip arthroplasty, with hardware components in expected positions.? There is a cortical step-off below the left greater trochanter on the lateral margin suggestive of minimally displaced intertrochanteric hip fracture. ? Soft tissues:? Overlying postoperative changes are noted.? No suspicious soft tissue densities.? ? ? IMPRESSION:? Intertrochanteric fracture involving the left femoroacetabular prosthesis. ? ? Dictated by: Eric Menjivar M.D. on 10/27/2021 at 13:01 ? ? Approved by: Eric Menjivar M.D. on 10/27/2021 at 13:05 ? X ray knee: Radiologist's Impression: PROCEDURE:? XR KNEE LT 3V ? INDICATIONS:? r/o fx ? TECHNIQUE:? 3 views of the knee were acquired.? ? COMPARISON:? None. ? FINDINGS:? ? Bones:? No fractures or dislocations.? No suspicious bony lesions.? Advanced tricompartmental osteoarthrosis most prominently medial patellofemoral compartment with marginal osteophytes, subchondral sclerosis, and bony deformity.? ? Soft tissues:? No joint effusion.? Vascular calcifications.? Chondrocalcinosis ? ? IMPRESSION:? 1. No fracture. 2. Advanced osteoarthritic changes of the knee most prominent in the medial and patellofemoral compartments. 3. Chondrocalcinosis. ? ? Dictated by: Eric Menjivar M.D. on 10/27/2021 at 13:05 ? ? Approved by: Eric Menjivar M.D. on 10/27/2021 at 13:06 ? Chest x-ray: Radiologist's Impression: PROCEDURE:? XR CHEST 1V ? INDICATIONS:? fall ? TECHNIQUE:? One view of the chest was acquired.? ? COMPARISON:? [facility], , XR CHEST 1V, 06/24/2020, 7:57. ? FINDINGS:? ? Surgical changes and devices:? Unchanged appearance of atrial appendage clip.? Sternotomy wires are intact.? Aortic valve replacement. ? Lungs and pleura:? Lungs are clear.? No pleural effusions or pneumothorax.? ? Mediastinum:? Mediastinal contours appear normal.? Heart size is normal.? ? Bones and chest wall:? No suspicious bony lesions.? Overlying soft tissues appear unremarkable.? ? IMPRESSION:? No acute cardiopulmonary findings. ? ? Dictated by: Eric Menjivar M.D. on 10/27/2021 at 13:49 ? ? Approved by: Eric Menjivar M.D. on 10/27/2021 at 13:5 MDM Narrative Medical decision making narrative: Patient is a 76-year-old male presents to the emergency room today with complaint of left-sided hip pain status post fall about 930 this morning. Patient states he fell after tripping over a garden hose. Admits to a fall from a ladder about 4 months ago and before that not fallen about 5 years. EKG done revealed nonspecific ST changes and atrial fibrillation. Record was checked and noted pre visiting EKG with same findings noted on 06/24/20. Consulted with Dr. Hurt for Orthopedics who recommended toe-touch weight-bearing only until follow-up with her office in 1-2 weeks. She also suggest the patient follow with his ortho plasty doctor who did the hip repair if possible. Labs and urine were drawn and chest film was taken to rule out any infectious or other lab abnormality that could be related to the fall. Chest film labs and urine were all unremarkable in regards to the fall. Patient instructed to continue to use crutches and only toe-touch weightbear until he follows up with Dr. Hurt. Contact information for Dr. Jones given to patient in discharge paperwork Patient agrees with plan. <Coby Serna, - Last Filed: 10/28/21 07:31> Lab Data Labs: Lab Results 10/27/21 10/27/21 10/27/21 Range/Units 15:11 16:19 16:19 WBC 11.9 H (4.5-11.0) X10^3/uL RBC 4.58 (4.5-5.9) X10^6/uL Hgb 14.2 (13.5-17.5) g/dL Hct 42.8 (41-53) % MCV 93.5 (80-100) fL MCH 31.0 (26-34) PG MCHC 33.1 (30-36) % RDW 13.8 (11.6-14.8) % Plt Count 192 (150-400) X10^3/uL Neut % (Auto) 86.7 H (50-75) % Lymph % (Auto) 3.5 L (25-40) % Stephenson % (Auto) 9.0 (3-14) % Eos % (Auto) 0.3 L (2-4) % Baso % (Auto) 0.5 (0-2) % Neut # (Auto) 63940 H (0797-9199) /uL Lymph # (Auto) 400 L (9219-7665) /uL Stephenson # (Auto) 1100 H (0-900) /uL Eos # (Auto) 0 (0-450) /uL Baso # (Auto) 100 (0-100) /uL Sodium 136 L (137-145) mmol/L Potassium 4.2 (3.4-5.1) mmol/L Chloride 103 (98-107) mmol/L Carbon Dioxide 27 (22-32) mmol/L BUN 25 H (9-20) mg/dL Creatinine 1.15 (0.66-1.25) mg/dL Estimated GFR > 60 (>60) mL/min BUN/Creatinine Ratio 21.7 (6-22) Glucose 95 (80-110) mg/dL Calcium 8.8 (8.4-10.2) mg/dL Total Bilirubin 0.9 (0.2-1.3) mg/dL AST 40 (17-59) IU/L ALT 44 (<50) IU/L Alkaline Phosphatase 119 (38-126) U/L Total Protein 7.3 (6.3-8.2) g/dL Albumin 4.1 (3.5-5.0) g/dL Globulin 3.2 (1.7-4.1) g/dL Albumin/Globulin Ratio 1.3 (1.0-2.8) Urine Color Yellow Urine Appearance Clear Urine pH 5.5 (4.5-8.0) Ur Specific [place] 1.015 (1.000-1.035) Urine Protein Negative (Negative) Urine Glucose (UA) Negative (Negative) g/dL Urine Ketones Negative (NEGATIVE) Urine Occult Blood Negative (Negative) Urine Nitrate Negative (Negative) Urine Bilirubin Negative (NEGATIVE) Urine Urobilinogen 0.2 (0.2) E.U./dL Ur Leukocyte Esterase Negative (NEGATIVE) Urine RBC None seen (0-5/HPF) Urine WBC None seen (0-5/HPF) Calcium Oxalate Crystal Few H Urine Bacteria None seen (None) Hyaline Casts 1-5/lpf (None) Ur Culture Indicated? Cult not indicated ECG Data Attestation: I personally reviewed and interpreted this ECG as follows: Prior ECG tracings: available for review Interpretation: AFib rate of 81 QRS of [address] QTC [address]. No acute ST elevation noted. Patient has prior that does show depression in lateral leads and AFib. Patient has prior fr om 07/15 which does not show any acute change. Discharge Plan Departure Patient Disposition: Home Clinical Impression: Fracture of hip, left, closed, Fall Instructions: DI for Hip Fracture, How to Prevent Falls Activity Restrictions/Additional Instructions: *You have been diagnosed with fracture left hip. Instructions for you are to only apply enough weight to toe-touch weightbear on the left side. He should also follow-up with [facility] and provider Dr. Jose Hurt. Their office phone number is [phone] or [phone]. [ ] *What to do: *Please continue to take your regular medications as directed. [ ] New medication prescriptions sent to your pharmacy: [ ] [ ] New medication written as a paper prescription [x] No new medications given *Please follow up with your primary care provider in 2-3 days, call for an appointment. Let them know you were seen in the Emergency Department and that we ask that you be seen in follow up. We will electronically transmit a record of today's note if your PCP is in our system *If you do not have a primary care provider please contact the [facility] Resource line at [phone]. They will ask some questions about your medical history and help get you set up with a doctor in the community. *Return to Emergency Department if you should have any new, worsening or concerning symptoms, such as [fever greater than 101 F, shaking chills, worsening pain, persistent vomiting or other bothersome symptoms] Prescriptions: New oxycodone-acetaminophen [Percocet] 5-325 mg tablet 1 tab PO Q8H PRN (Reason: pain) Qty: 10 0RF No Action atorvastatin 40 mg tablet 40 mg PO BEDTIME Label Comments: TK 1 T PO QD Eliquis 5 mg tablet 5 mg PO BID multivitamin Tablet 1 tab PO DAILY ascorbic acid (vitamin C) [Vitamin C] 1,000 mg Tablet 1 g PO DAILY metoprolol succinate 25 mg tablet extended release 24 hr 25 mg PO BID Rx Instructions: takes 1.5 tab am and 1 tab at night sertraline 50 mg tablet 100 mg PO DAILY cholecalciferol (vitamin D3) [Vitamin D3] 1,000 unit Capsule 1,000 unit PO DAILY ciprofloxacin HCl 500 mg tablet 500 mg PO BID Qty: 20 0RF furosemide [Lasix] 40 mg tablet 40 mg PO DAILY Qty: 5 0RF oxycodone 5 mg tablet 5 mg PO Q6H PRN (Reason: pain) Qty: 10 0RF ondansetron HCl [Zofran] 4 mg tablet 4 mg PO Q6H PRN (Reason: nausea and vomiting) Qty: 14 0RF diltiazem HCl 120 mg Capsule,Extended Release 24 Hr 120 mg PO DAILY Referrals: Malou Hurt MD [Physician] - Visit Report Forms: Patient Portal/API <Coby Serna DO - Last Filed: 10/28/21 07:31> Cosign ED Attending Cosmaryature Attestation: I was immediately available in the department for consultation. Documentation has been reviewed. Case was discussed recommendations reviewed from Orthopedic surgery as well as imaging.
--- NOTE | 2021-10-27 14:24 | DI.RAD.S_ITS ---
PROCEDURE: XR CHEST 1V INDICATIONS: fall TECHNIQUE: One view of the chest was acquired. COMPARISON: [facility], CR, XR CHEST 1V, 06/24/2020, 7:57. FINDINGS: Surgical changes and devices: Unchanged appearance of atrial appendage clip. Sternotomy wires are intact. Aortic valve replacement. Lungs and pleura: Lungs are clear. No pleural effusions or pneumothorax. Mediastinum: Mediastinal contours appear normal. Heart size is normal. Bones and chest wall: No suspicious bony lesions. Overlying soft tissues appear unremarkable. IMPRESSION: No acute cardiopulmonary findings. Dictated by: Eric Menjivar M.D. on 10/27/2021 at 13:49 Approved by: Eric Menjivar M.D. on 10/27/2021 at 13:50
[2021-10-27 16:28] LABS: Add Manual Diff / Slide Review NO; Basophils Absolute Auto 100 /uL (0-100); Basophils Percent Auto 0.5 % (0-2); Eosinophils Absolute Auto 0 /uL (0-450); Eosinophils Percent Auto 0.3 % (2-4); Hematocrit 42.8 % (41-53); Hemoglobin 14.2 g/dL (13.5-17.5); Lymphocytes Absolute Auto 400 /uL (1100-4500); Lymphocytes Percent Auto 3.5 % (25-40); Mean Corpuscular HGB Conc 33.1 % (30-36); Mean Corpuscular Volume 93.5 fL (80-100); Monocytes Absolute Auto 1100 /uL (0-900); Neutrophils Absolute Auto 10300 /uL (1500-7000); Neutrophils Percent Auto 86.7 % (50-75); Platelet Count 192 X10^3/uL (150-400); Red Blood Cell Count 4.58 X10^6/uL (4.5-5.9); Red Cell Distribution Width 13.8 % (11.6-14.8); White Blood Cell Count 11.9 X10^3/uL (4.5-11.0)
[2021-10-27 16:34] LABS: Appearance Urine UA CLEAR; Bilirubin Urine UA NEGATIVE (NEGATIVE); Color Urine UA YELLOW; Glucose Urine UA NEGATIVE (Negative); Ketones Urine UA NEGATIVE (NEGATIVE); Leukocyte Esterase Urine UA NEGATIVE (NEGATIVE); Nitrite Urine UA NEGATIVE (Negative); Occult Blood Urine UA NEGATIVE (Negative); Protein Urine UA NEGATIVE (Negative); Specific Gravity Urine UA 1.015 (1.000-1.035); Urobilinogen Urine UA 0.2 E.U./dL (0.2); pH Urine UA 5.5 (4.5-8.0)
[2021-10-27 16:36] LABS: Calcium Oxalate Crystals Urine Few; RBC Urine None Seen (0-5/HPF); WBC Urine None Seen (0-5/HPF)
[2021-10-27 16:37] LABS: Bacteria Urine None Seen; Culture Indicated Urine Cult Not Indicated; Hyaline Casts Urine 1-5/LPF
[2021-10-27 16:39] LABS: Alanine Aminotransferase 44 IU/L (<50); Albumin 4.1 g/dL (3.5-5.0); Albumin Globulin Ratio 1.3 (1.0-2.8); Alkaline Phosphatase 119 U/L (38-126); Aspartate Aminotransferase 40 IU/L (17-59); BUN Creatinine Ratio 21.7 (6-22); Bilirubin Total 0.9 mg/dL (0.2-1.3); Blood Urea Nitrogen 25 mg/dL (9-20); Calcium 8.8 mg/dL (8.4-10.2); Carbon Dioxide 27 mmol/L (22-32); Chloride 103 mmol/L (98-107); Estimated Glomerular Filt Rate > 60 mL/min (>60); Globulin 3.2 g/dL (1.7-4.1); Glucose 95 mg/dL (80-110); HEMOLYSIS < 15 (0-50); Potassium 4.2 mmol/L (3.4-5.1); Sodium 136 mmol/L (137-145); Total Protein 7.3 g/dL (6.3-8.2)
[2021-10-27 17:33] VITALS: BP 116/76; PULSE 91; RESP 18; O2SAT 97
== END 2021-10-27 17:34 | disposition home or self-care (01) ==
PROVIDERS: Emergency Provider Physician Assistant
DX: S72.092A Other fracture of head and neck of left femur, initial encounter for closed fracture (principal); M97.02XA Periprosthetic fracture around internal prosthetic left hip joint, initial encounter; W01.0XXA Fall on same level from slipping, tripping and stumbling without subsequent striking against object, initial encounter
CPT/HCPCS: 36415; 71045; 73502; 73562; 80053; 81001; 85025; 93005; 99281; 99284

== ENCOUNTER 2022-07-07 07:17 | Emergency (ER) | payer MEDICARE, OTHER, SELFPAY ==
--- NOTE | 2022-07-07 07:35 | DI.RAD.S_ITS ---
PROCEDURE: XR WRIST LT MIN 3V INDICATIONS: L wrist pain over ulnar aspect TECHNIQUE: 3 views of the wrist were acquired. COMPARISON: None. FINDINGS: Bones: Small bony fragment adjacent to the distal ulna is present. No suspicious bony lesions. Periarticular osteophyte formation at the radial carpal, scaphoid trapezial, and 1st carpometacarpal joints. Scaphoid view: Not requested Soft tissues: No suspicious soft tissue calcifications. IMPRESSION: 1. Small bony fragment adjacent to the distal ulna, of uncertain acuity, possibly representing a small fracture fragment. 2. Osteoarthritis. 3. No acute fracture. No osseous lesion. If symptoms and/or clinical suspicion for pathology persist, further assessment with repeat, or nonemergent advanced imaging (e.g., CT, MRI, or bone scan) may be helpful for further assessment. Dictated by: Kelle Elam M.D. on 07/07/2022 at 8:02 Approved by: Kelle Elam M.D. on 07/07/2022 at 8:02
--- NOTE | 2022-07-07 07:37 | ED.GENADULT ---
HPI - General Adult General Chief complaint: Extremity Injury, Upper Stated complaint: pain in left hand and up into arm Time Seen by Provider: 07/07/22 07:27 Source: patient Mode of arrival: Ambulatory Limitations: no limitations History of Present Illness HPI narrative: Patient is a 77-year-old male who is here for evaluation of a left hand/wrist discomfort. No specific trauma. He states that it actually is hurt for some time but has been on and off. Today he thought that it was radiating up the back of his forearm. Describes the pain as in the back of his hand. Hurts when he stretches out his fingers and also makes a fist. Can not put his palm in the air. Has a difficulty with flexion-extension of the wrist. His left elbow and left shoulder are unremarkable. Related Data Home Medications Medication Instructions Recorded Confirmed apixaban 5 mg tablet 5 mg PO BID 09/16/18 06/25/20 ascorbic acid (vitamin C) 1,000 mg 1 g PO DAILY 09/16/18 09/16/18 tablet (Vitamin C) atorvastatin 40 mg tablet 40 mg PO BEDTIME 09/16/18 09/16/18 cholecalciferol (vitamin D3) 25 1,000 unit PO DAILY 09/16/18 09/16/18 mcg (1,000 unit) capsule (Vitamin D3) metoprolol succinate 25 mg 25 mg PO BID 09/16/18 06/25/20 tablet,extended release 24 hr multivitamin 1 tab PO DAILY 09/16/18 09/16/18 sertraline 50 mg tablet 100 mg PO DAILY 09/16/18 06/25/20 diltiazem HCl 120 mg capsule,24 120 mg PO DAILY 06/25/20 06/25/20 hr,extended release Previous Rx's Medication Instructions Recorded ciprofloxacin HCl 500 mg tablet 500 mg PO BID #20 tabs 06/24/20 furosemide 40 mg tablet (Lasix) 40 mg PO DAILY #5 tabs 06/24/20 ondansetron HCl 4 mg tablet 4 mg PO Q6H PRN nausea and 06/24/20 (Zofran) vomiting #14 tabs oxycodone 5 mg tablet 5 mg PO Q6H PRN pain #10 tabs 06/24/20 oxycodone-acetaminophen 5 mg-325 1 tab PO Q8H PRN pain #10 tabs 09/03/22 mg tablet (Percocet) Allergies Allergy/AdvReac Type Severity Reaction Status Date / Time ampicillin Allergy Verified 07/07/22 07:53 Review of Systems Constitutional Constitutional: Reports system reviewed and no additional complaints, except as documented Musculoskeletal Musculoskeletal: Reports system reviewed and no additional complaints, except as documented Integumentary/Breasts Skin/Breast: Reports system reviewed and no additional complaints, except as documented Neurologic Neurologic: Reports system reviewed and no additional complaints, except as documented Patient History Medical History A-fib CVA (cerebral vascular accident) Hyperlipidemia Surgical History H/O aortic valve replacement Social History Smoking Status: Never smoker Smoking Status: Never smoker alcohol intake frequency: 0-2 drinks per day Substance Use Type: does not use Exam Initial Vital Signs Initial Vital Signs: Vital Signs Temperature 97.6 F 07/07/22 07:38 Pulse Rate 61 07/07/22 07:38 Respiratory Rate 20 07/07/22 07:38 Blood Pressure 106/67 07/07/22 07:38 Pulse Oximetry 99 07/07/22 07:38 Oxygen Delivery Method Room Air 07/07/22 07:38 HENMT Head: normal to inspection and normocephalic Cardio Pulses: radial pulses present on the left Skin General: no rashes or lesions noted Neuro Sensory Exam: no sensory deficits noted Extrem Other: Left shoulder and left elbow are unremarkable. No specific discomfort to the palpation of the dorsum of the left hand. Does have discomfort over the ulnar styloid with small amount of swelling. Patient is unable to supinate secondary to pain. Flexion-extension is limited secondary to pain. Making a fist is limited secondary to pain. There is no redness or warmth noted over the area. Course Orders Ordered: ED Orders 07/07/22 07:35 XR wrist LT min 3V Stat Vital Signs Vital signs: Vital Signs - 8 hr 07/07/22 07:38 Temperature 97.6 F Pulse Rate 61 Respiratory Rate 20 Blood Pressure 106/67 Pulse Oximetry 99 Oxygen Delivery Method Room Air Medical Decision Making Imaging Data Extremity x-ray #1: Radiologist's Impression: PROCEDURE:? XR WRIST LT MIN 3V ? INDICATIONS: L wrist pain over ulnar aspect ? TECHNIQUE:? 3 views of the wrist were acquired.? ? COMPARISON:? None. ? FINDINGS:? ? Bones:? Small bony fragment adjacent to the distal ulna is present.? No suspicious bony lesions.? Periarticular osteophyte formation at the radial carpal, scaphoid trapezial, and 1st carpometacarpal joints. ? Scaphoid view:? Not requested ? Soft tissues:? No suspicious soft tissue calcifications.? ? IMPRESSION:? 1. Small bony fragment adjacent to the distal ulna, of uncertain acuity, possibly representing a small fracture fragment. 2. Osteoarthritis. 3. No acute fracture. No osseous lesion. If symptoms and/or clinical suspicion for pathology persist, further assessment with repeat, or nonemergent advanced imaging (e.g., CT, MRI, or bone scan) may be helpful for further assessment. MDM Narrative Medical decision making narrative: Patient does have specific tenderness over the ulnar styloid. The x-ray does show a potential bony fragment in this area although the patient denies any specific injury. This exam is also not consistent with cellulitis, septic joint, gout. I have a strong suspicion that this is an arthritis flare however given the findings on the x-ray in the location of his tenderness the plan will be to put him into a wrist splint. Will have him wear this wrist splint for the next week. Afterwards he can take it off. If his symptoms have improved/resolved it is most likely an arthritis flare. If he is clam shucking machine tender over the area then he would need follow-up with orthopedic surgery. I did discuss all this with him. He expressed understanding and agreement. Discharge Plan Departure Patient Disposition: Home Clinical Impression: Wrist pain, left Instructions: How To Perform RICE (Rest, Ice, Compress, Elevate), DI for Wrist Pain Activity Restrictions/Additional Instructions: I would recommend that you wear the wrist splint for the majority of the time for the next week like we discussed. You can take it off to shower but otherwise I recommend that you wear the splint. It is best that you keep it dry. In 1 week you can take off the splint. If your symptoms have resolved then you can just wear the splint as needed afterwards. If you are still having discomfort then you will need follow-up with the orthopedic providers. You can contact them at the number provided below. Also recommend that you use ice on the area. Return to the emergency department for new symptoms. Prescriptions: No Action oxycodone-acetaminophen [Percocet] 5-325 mg tablet 1 tab PO Q8H PRN (Reason: pain) Qty: 10 0RF atorvastatin 40 mg tablet 40 mg PO BEDTIME Patient Comments: TK 1 T PO QD Eliquis 5 mg tablet 5 mg PO BID multivitamin Tablet 1 tab PO DAILY ascorbic acid (vitamin C) [Vitamin C] 1,000 mg Tablet 1 g PO DAILY metoprolol succinate 25 mg tablet extended release 24 hr 25 mg PO BID Rx Instructions: takes 1.5 tab am and 1 tab at night sertraline 50 mg tablet 100 mg PO DAILY cholecalciferol (vitamin D3) [Vitamin D3] 1,000 unit Capsule 1,000 unit PO DAILY ciprofloxacin HCl 500 mg tablet 500 mg PO BID Qty: 20 0RF furosemide [Lasix] 40 mg tablet 40 mg PO DAILY Qty: 5 0RF oxycodone 5 mg tablet 5 mg PO Q6H PRN (Reason: pain) Qty: 10 0RF ondansetron HCl [Zofran] 4 mg tablet 4 mg PO Q6H PRN (Reason: nausea and vomiting) Qty: 14 0RF diltiazem HCl 120 mg Capsule,Extended Release 24 Hr 120 mg PO DAILY Referrals: Malou Hurt MD [Physician] - Rito Gr MD [Primary Care Provider] - Stand Alone Forms: Patient Portal/API
[2022-07-07 07:38] VITALS: BP 106/67; PULSE 61; RESP 20; TEMP 36.4; O2SAT 99; BMI 25.1
[2022-07-07] MEDS: ACETAMINOPHEN 325 MG TABLET 650 MG PO (08:41)
[2022-07-07 08:48] VITALS: BP 96/55; PULSE 54; RESP 18; O2SAT 98
== END 2022-07-07 08:49 | disposition home or self-care (01) ==
PROVIDERS: Emergency Provider Emergency Medicine; PCP Internal Medicine
DX: M25.532 Pain in left wrist (principal)
CPT/HCPCS: 73110; 99283

== ENCOUNTER → 2023-01-30 13:00 | Outpatient (CLI) | payer MEDICARE, OTHER, SELFPAY ==
--- NOTE | 2023-01-30 | DI.MRI.S_ITS ---
PROCEDURE: MR WRIST LT WO CON INDICATIONS: Primary osteoarthritis, left wrist TECHNIQUE: Noncontrast coronal proton density fast spin echo and T2 fast spin echo with fat saturation; coronal 3-D gradient echo, axial T1 spin echo and T2 fast spin echo with fat saturation, sagittal T1 spin echo through the wrist. COMPARISON: None. FINDINGS: Image quality: Excellent. Bones and cartilage: Moderate to severe osteoarthritic changes are noted throughout wrist joints with significant joint space narrowing, subchondral sclerosis and subcortical cystic changes. There is marrow edema involving distal radius and ulnar as well as lunate without definite fracture line. Early avascular necrosis of lunate cannot be entirely excluded. No other area of abnormal marrow signal. Carpal ligaments: The scapholunate and lunotriquetral ligaments appear intact. In the absence of intra-articular contrast, the extrinsic carpal ligaments are not well identified. On sagittal images, the pisohamate ligament appears intact. Triangular fibrocartilage complex: There is nonvisualization of normal triangular fibrocartilage suggestive of chronic complex TFC tear. Thickened extensor carpi ulnaris tendon with intrasubstance T2 hyperintense signal is seen at the level of ulnar styloid and triquetrum. Tendons and soft tissues: The carpal tunnel structures appear normal, including the median nerve. The ulnar nerve appears normal within Guyon's canal. All six extensor tendon compartments demonstrate normal morphology, without pathologic tendon sheath fluid. No soft tissue ganglion cysts. IMPRESSION: 1. Moderate to severe wrist joint osteoarthritis most notably involving ulnar carpal joint as described above. Marrow edema and subcortical cystic areas are seen in ulnar aspect of distal radius, distal ulnar and lunate, likely represent changes related to osteoarthritis. Early avascular necrosis of lunate cannot be excluded. Close clinical correlation and radiographic follow-up is recommended. 2. 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 3. Tendinosis and low-grade intrasubstance partial-thickness tear involving extensor carpi ulnaris tendon at the level of ulnar styloid and triquetrum. 4. Scapholunate and lunotriquetral ligaments are intact. Dictated by: David Du M.D. on 01/30/2023 at 16:22 Approved by: David Du M.D. on 01/30/2023 at 17:15
== END ==
PROVIDERS: PCP Internal Medicine; Referring Provider Orthopaedic Surgery; Visit Provider Orthopaedic Surgery
DX: S66.812A Strain of other specified muscles, fascia and tendons at wrist and hand level, left hand, initial encounter (principal); M19.032 Primary osteoarthritis, left wrist
CPT/HCPCS: 73221

== ENCOUNTER 2023-02-02 16:06 | Observation (INO) | payer MEDICARE, OTHER, SELFPAY ==
[2023-02-02] VITALS (24 sets, daily range): BP systolic 77–108; BP diastolic 42–66; PULSE 77–133; RESP 19–31; TEMP 36.7–37.1; O2SAT 92–97; BMI 24.8
--- NOTE | 2023-02-02 07:23 | DI.MRI.S_ITS ---
PROCEDURE: MR HEAD/BRAIN WO CON INDICATIONS: confusion TECHNIQUE: Non-contrast axial T1 spin echo, axial T2 fast spin echo, sagittal and axial FLAIR, coronal T2 fast spin echo, axial gradient echo, axial diffusion and ADC through the brain. COMPARISON: None. FINDINGS: Image quality: Excellent. CSF spaces: Ventricles appear symmetric in size and shape. Basal cisterns are patent. No extra-axial fluid collections. Brain: No intracranial bleeds or mass effects. There is cerebral volume loss for age. There are periventricular and deep white matter chronic small vessel ischemic changes. Brainstem appears normal. Diffusion-weighted images show no acute ischemic insults. Old left chronic ischemic insult. Normal intravascular flow voids are present. Skull and face: Calvarial bone marrow is normal in signal. Orbits are normal. Sinuses: Sinuses demonstrate scattered areas of mucosal thickening most prominent in the left maxillary sinus. IMPRESSION: 1. No acute intracranial process. 2. Moderate atrophy and chronic microvascular ischemic changes. Dictated by: Wendie Whitaker M.D. on 02/03/2023 at 13:39 Approved by: Wendie Whitaker M.D. on 02/03/2023 at 13:44
--- NOTE | 2023-02-02 16:30 | DI.RAD.S_ITS ---
PROCEDURE: XR CHEST 1V INDICATIONS: multiple fall TECHNIQUE: One view of the chest was acquired. COMPARISON: [facility], CR, XR CHEST 2V, 09/16/2018, 9:26. FINDINGS: Surgical changes and devices: Aortic valve prosthesis. Cerclage wires are present. Lungs and pleura: Lungs are clear. No pleural effusions or pneumothorax. Mediastinum: Mediastinal contours appear normal. Heart size is normal. Bones and chest wall: No suspicious bony lesions. Overlying soft tissues appear unremarkable. IMPRESSION: No acute cardiopulmonary abnormality is seen. Dictated by: Eric Menjivar M.D. on 02/02/2023 at 16:03 Approved by: Eric Menjivar M.D. on 02/02/2023 at 16:05
--- NOTE | 2023-02-02 16:30 | ED.TRAUMA ---
HPI - Trauma General Chief Complaint: Trauma Stated Complaint: Fell down bank on right side Time Seen by Provider: 02/02/23 16:21 Source: patient Mode of arrival: Ambulatory Limitations: no limitations History of Present Illness HPI narrative: This is a 77-year-old male with history of atrial fibrillation with prior cardiac clips and device on Eliquis daily. Patient states he was raking leaves in the edge of a ravine/hill. He states the hill gave way and he rolled down. He states he got stuck for about an hour to and then was able to crawl up to the top he states every time he would try to stand and put weight on his right leg would give out. He states he never had any pain. He tried with a rake to use as a cane and was unsuccessful and eventually crawled back to the house. Patient states he has been able to stand since then and ambulate. He is had some mild sensation of off balance since then. He notes he has been off balance if you times on and off over the past couple months. He denies any pain. He denies headache, neck pain, chest abdomen or belly pain no back or flank pain. Patient states no loss of bowel or bladder control. He is had no recent diarrhea or constipation. No dysuria urgency or frequency. He denies any numbness tingling or weakness in his extremities at this time. Patient states he took his morning medications. He has had prior clips in his, valve surgery. Patient states he is had prior prostate surgery prostate cancer and he currently gets an infusion every 2 months for lymphoma. States allergy to ampicillin. Denies any tobacco, occasional alcohol but not regularly no illicit. He would family state he has ambulated since this happened. Related Data Home Medications Medication Instructions Recorded Confirmed apixaban 5 mg tablet 5 mg PO BID 09/16/18 02/02/23 ascorbic acid (vitamin C) 1,000 mg 1 g PO DAILY 09/16/18 02/02/23 tablet (Vitamin C) atorvastatin 40 mg tablet 40 mg PO BEDTIME 09/16/18 02/02/23 cholecalciferol (vitamin D3) 25 1,000 unit PO DAILY 09/16/18 02/02/23 mcg (1,000 unit) capsule (Vitamin D3) metoprolol succinate 25 mg 25 mg PO BID 09/16/18 02/02/23 tablet,extended release 24 hr multivitamin 1 tab PO DAILY 09/16/18 02/02/23 sertraline 50 mg tablet 100 mg PO DAILY 09/16/18 02/02/23 bumetanide 1 mg tablet 1 mg PO DAILY 02/02/23 02/02/23 spironolactone 25 mg tablet 25 mg PO DAILY 02/02/23 02/02/23 Allergies Allergy/AdvReac Type Severity Reaction Status Date / Time ampicillin Allergy Verified 07/07/22 07:53 Review of Systems Review of Systems ROS Unobtainable: All systems reviewed & are unremarkable except as noted in HPI and below Patient History Medical History CVA (cerebral vascular accident) Hyperlipidemia A-fib Surgical History H/O aortic valve replacement Social History household members: none Smoking Status: Never smoker alcohol intake: never Smoking Status: Never smoker alcohol intake frequency: 0-2 drinks per day Substance Use Type: does not use Exam Narrative Exam Narrative: GEN: Patient appears in mild distress. HEAD: No evidence of trauma, no raccoon/Sanchez sign. NECK: Nontender, painless range of motion, trachea midline [Negative/positive] Nexus criteria, has no midline line tenderness, distracting injury, altered mental status, neuro deficit, recent EtOH. EYES: PERRLA, EOMI ENT: External inspection normal, trachea is midline, TM's are normal no hemotypanum, Nares are clear, no septal hematoma, no dental or oral injury, airway is normal and with normal occlusion, No bony tenderness RESP: Chest is nontender and has symmetric movement, no ecchymosis, breath sounds are normal no crackles, wheezes or rales CVS: Heart sounds are normal, no murmur noted, No JVD. ABG/GI: Nontender, soft, normal bowel sounds, no distention, no organomegaly, pelvic rock is negative NEURO: Oriented AOx3, neuro is grossly intact, sensation and motor is normal all 4 extremities moving, cranial nerves II through XII are intact, GCS is 15, no drift in upper or lower extremities. Normal heel mirza and [id number] bilaterally. PSYCH: Normal mood and affect, SKIN: Intact, warm and dry, no crepitus and without decubitus BACK: No CVA tenderness, no vertebral tenderness, no step-off's, no crepitus EXT: Atraumatic, hips are nontender, no pedal edema, normal color and temperature, normal range of motion of extremities with normal tendon exam, 2+ pulses in all four extremities Initial Vital Signs Initial Vital Signs: Vital Signs Temperature 98.1 F 02/02/23 16:18 Pulse Rate 133 H 02/02/23 16:18 Respiratory Rate 20 02/02/23 16:18 Blood Pressure 108/66 02/02/23 16:18 Pulse Oximetry 97 02/02/23 16:18 Oxygen Delivery Method Room Air 02/02/23 16:18 Scores GCS [place] coma scale eye opening: Spontaneous [place] coma scale verbal response: Orientated [place] coma scale motor response: Obey commands [place] coma scale total score: 15 Course Orders Ordered: Acetaminophen (Acetaminophen 325 Mg Tablet) 650 mg PO Q6H PRN PRN Reason: Fever/Mild Pain (1-3) Apixaban (Apixaban 5 Mg Tablet) 5 mg PO BID [facility] Last Admin: 02/02/23 21:24 Dose: 5 mg Documented By: AM Atorvastatin Calcium (Atorvastatin 20 Mg Tablet) 40 mg PO BEDTIME [facility] Last Admin: 02/02/23 21:24 Dose: 40 mg Documented By: AM Diltiazem HCl (Diltiazem Cd 120 Mg Cap) 120 mg PO DAILY [facility] Melatonin (Melatonin 3 Mg Tablet) 6 mg PO BEDTIME PRN PRN Reason: Insomnia Metoprolol Succinate (Metoprolol Er 25 Mg Tablet) 25 mg PO BID [facility] Last Admin: 02/02/23 21:24 Dose: Not Given Documented By: AM Naloxone HCl (Naloxone 0.4 Mg/Ml Vial) 0.2 mg IV Q2MIN PRN PRN Reason: Opiate Reversal Oxycodone HCl (Oxycodone Ir 5 Mg Tablet) 5 mg PO Q4HR PRN PRN Reason: Pain, Moderate (4-6) Polyethylene Glycol (Polyethylene Glycol 3350 17 Gm Powd.Pack) 17 gm PO DAILY PRN PRN Reason: Constipation Sennosides (Sennosides 8.6 Mg Tablet) 8.6 mg PO BID PRN PRN Reason: Constipation Sertraline HCl (Sertraline 50 Mg Tablet) 100 mg PO DAILY GABO Discontinued Medications Diphtheria/Tetanus/Acell Pertussis (Tet,Diph,Pertuss(Acell),Vac/Pf 0.5 Ml Syringe) 0.5 ml IM .ONCE ONE Stop: 02/02/23 16:31 Last Admin: 02/02/23 18:37 Dose: 0.5 ml Documented By: NACHO Sodium Chloride (Normal Saline 0.9%) 1,000 mls @ 1,000 mls/hr IV BOLUS ONE Stop: 02/02/23 17:29 Last Infusion: 02/02/23 17:30 Dose: Infused Documented By: Admin: 02/02/23 16:35 Dose: 1,000 mls/hr Documented By: TWYLA Sodium Chloride (Normal Saline 0.9%) 1,000 mls @ 100 mls/hr IV CONT GABO Stop: 02/03/23 06:14 Last Admin: 02/02/23 21:24 Dose: 100 mls/hr Documented By: JAH Sodium Chloride (Normal Saline 0.9%) 1,000 mls @ 1,000 mls/hr IV BOLUS ONE Stop: 02/02/23 19:08 Last Infusion: 02/02/23 18:51 Dose: 0 mls/hr Documented By: Admin: 02/02/23 18:20 Dose: 1,000 mls/hr Documented By: TWYLA Pantoprazole Sodium (Pantoprazole 40 Mg Vial) 40 mg IV BID GABO Vital Signs Vital signs: Vital Signs - 8 hr 02/02/23 16:18 02/02/23 16:30 02/02/23 16:30 Temperature 98.1 F Pulse Rate 133 H 125 H Respiratory Rate 20 26 H Blood Pressure 108/66 94/57 L Pulse Oximetry 97 Oxygen Delivery Method Room Air 02/02/23 16:31 02/02/23 16:31 02/02/23 16:35 Temperature Pulse Rate 130 H Respiratory Rate 27 H Blood Pressure 84/49 L 81/54 L Pulse Oximetry 95 Oxygen Delivery Method 02/02/23 16:35 02/02/23 16:41 02/02/23 16:41 Temperature Pulse Rate 133 H 123 H Respiratory Rate 23 Blood Pressure 84/53 L Pulse Oximetry 96 95 Oxygen Delivery Method 02/02/23 16:43 02/02/23 16:43 02/02/23 16:45 Temperature Pulse Rate 115 H 106 H Respiratory Rate Blood Pressure 86/52 L Pulse Oximetry 95 95 Oxygen Delivery Method 02/02/23 16:45 02/02/23 16:46 02/02/23 16:46 Temperature Pulse Rate 101 H Respiratory Rate Blood Pressure 88/51 L 86/49 L Pulse Oximetry 94 Oxygen Delivery Method 02/02/23 16:48 02/02/23 16:48 02/02/23 16:50 Temperature Pulse Rate 106 H 118 H Respiratory Rate Blood Pressure 84/49 L Pulse Oximetry 95 95 Oxygen Delivery Method 02/02/23 16:50 02/02/23 16:52 02/02/23 16:52 Temperature Pulse Rate 122 H Respiratory Rate 28 H Blood Pressure 80/53 L 78/51 L Pulse Oximetry 96 Oxygen Delivery Method 02/02/23 16:54 02/02/23 16:54 02/02/23 16:55 Temperature Pulse Rate 113 H 98 H Respiratory Rate 23 31 H Blood Pressure 84/51 L Pulse Oximetry 95 94 Oxygen Delivery Method 02/02/23 16:55 02/02/23 16:56 02/02/23 16:56 Temperature Pulse Rate 101 H Respiratory Rate 29 H Blood Pressure 81/48 L 82/46 L Pulse Oximetry 94 Oxygen Delivery Method 02/02/23 16:58 02/02/23 16:58 02/02/23 17:00 Temperature Pulse Rate 109 H 109 H Respiratory Rate 22 19 Blood Pressure 87/53 L Pulse Oximetry 95 96 Oxygen Delivery Method 02/02/23 17:00 02/02/23 17:02 02/02/23 17:02 Temperature Pulse Rate 102 H Respiratory Rate 23 Blood Pressure 86/51 L 77/45 L Pulse Oximetry 95 Oxygen Delivery Method 02/02/23 17:05 02/02/23 17:05 02/02/23 17:10 Temperature Pulse Rate 101 H Respiratory Rate 21 Blood Pressure 89/49 L 89/51 L Pulse Oximetry 95 Oxygen Delivery Method 02/02/23 17:10 02/02/23 17:20 02/02/23 17:20 Temperature Pulse Rate 101 H 109 H Respiratory Rate 24 21 Blood Pressure 88/55 L Pulse Oximetry 96 92 Oxygen Delivery Method 02/02/23 17:30 02/02/23 17:30 02/02/23 17:40 Temperature Pulse Rate 105 H 105 H Respiratory Rate 25 H 23 Blood Pressure 96/56 L Pulse Oximetry 92 96 Oxygen Delivery Method 02/02/23 17:40 Temperature Pulse Rate Respiratory Rate Blood Pressure 92/55 L Pulse Oximetry Oxygen Delivery Method MDM - Trauma Lab Data 02/02/23 16:35 02/03/23 06:20 Labs: Lab Results 02/02/23 02/02/23 Range/Units 16:35 16:41 WBC 10.8 (4.5-11.0) X10^3/uL RBC 4.26 L (4.5-5.9) X10^6/uL Hgb 12.8 L (13.5-17.5) g/dL Hct 37.2 L (41-53) % MCV 87.3 (80-100) fL MCH 29.9 (26-34) PG MCHC 34.3 (30-36) % RDW 13.9 (11.6-14.8) % Plt Count 366 (150-400) X10^3/uL Neut % (Auto) 92.3 H (50-75) % Lymph % (Auto) 2.0 L (25-40) % [place] % (Auto) 5.4 (3-14) % Eos % (Auto) 0.1 L (2-4) % Baso % (Auto) 0.2 (0-2) % Neut # (Auto) 9900 H (8964-4225) /uL Lymph # (Auto) 200 L (0153-3019) /uL [place] # (Auto) 600 (0-900) /uL Eos # (Auto) 0 (0-450) /uL Baso # (Auto) 0 (0-100) /uL PT 24.4 H (9.4-12.5) SECONDS INR 2.1 H (0.9-1.3) APTT 32 (25.1-36.5) SECONDS Sodium 127 L (137-145) mmol/L Potassium 4.2 (3.4-5.1) mmol/L Chloride 95 L (98-107) mmol/L Carbon Dioxide 24 (22-32) mmol/L BUN 25 H (9-20) mg/dL Creatinine 1.07 (0.66-1.25) mg/dL Estimated GFR > 60 (>60) mL/min BUN/Creatinine Ratio 23.4 H (6-22) Glucose 123 H (80-110) mg/dL Hemoglobin A1c 6.4 H (4.0-6.0) % Lactate 1.6 (0.7-2.1) mmol/L Calcium 9.3 (8.4-10.2) mg/dL Magnesium 2.1 (1.6-2.3) mg/dL Total Bilirubin 0.9 (0.2-1.3) mg/dL AST 42 (17-59) IU/L ALT 32 (<50) IU/L Alkaline Phosphatase 102 (38-126) U/L Total Creatine Kinase 131 (55-170) U/L Troponin I 0.014 (0.01-0.034) ng/mL NT-Pro-B Natriuret Pep 3090 H (<450) pg/mL Total Protein 6.7 (6.3-8.2) g/dL Albumin 3.5 (3.5-5.0) g/dL Globulin 3.2 (1.7-4.1) g/dL Albumin/Globulin Ratio 1.1 (1.0-2.8) Triglycerides 44 (35-150) mg/dL Cholesterol 124 L (140-199) mg/dL LDL Cholesterol, Calc 86 (<100) mg/dL HDL Cholesterol 29 L (40-60) mg/dL Lipase 31 (23-300) U/L Procalcitonin 0.23 (<0.5) ng/mL TSH 2.76 (0.47-4.68) uIU/mL Ethyl Alcohol < 10 ( - 10) mg/dL Blood Type A Positive Antibody Screen Negative Point of Care Testing Glucose POC [address] scan - head: Radiologist's Impression: Jeol Shankar??77??M??1945 ? Allergy/Adv: ampicillin Close Head CT (Signed) Eric Menjivar - 02/02/23 Chest/Abdomen/Pelvis CT (Signed) Eric Menjivar - 02/02/[address] (Signed) Eric Menjivar - 02/02/23 Chest X-Ray (Signed) Eric Menjivar - 02/02/23 Wrist MRI (Signed) David Du - 01/30/23 Wrist X-Ray (Signed) Kelle Elam - 07/07/22 Chest X-Ray (Signed) Eric Menjivar - 10/27/21 Chest X-Ray (Cancelled) 10/27/21 Knee X-Ray (Signed) Eric Menjivar - 10/27/21 Hip X-Ray (Signed) Eric Menjivar - 10/27/21 Abdomen/Pelvis CT (Signed) Oswald Munoz - 06/25/20 Chest/Abdomen/Pelvis CTA (Addendum) Candy Banks - 06/24/20 Chest X-Ray (Signed) AlexanderOswald - 06/24/20 Vascular Ultrasound (Signed) Meg Chisholm - 09/16/18 Chest X-Ray (Signed) Adrien Tay - 09/16/18 Launch?Image [address] [address] [address] Scan Report Signed Patient: Joel Shankar MR#: [id number] : 1945 Acct:[id number] Age/Sex: 77 / M Date of Service: 02/02/23 Loc: ED Accession Number: [id number] Procedure: CT head/brain wo con Ordering Provider: Coby Serna D.O. PROCEDURE: CT HEAD/BRAIN WO CON INDICATIONS: rolled down hill, multiple falls, right leg was weak, better TECHNIQUE: Noncontrast 4.5 mm thick angled axial sections acquired from the foramen magnum to the vertex, with coronal and sagittal reformats. For radiation dose reduction, the following was used: automated exposure control, adjustment of mA and/or kV according to patient size. COMPARISON: None. FINDINGS: Image quality: Excellent. CSF spaces: Basal cisterns are patent. No extra-axial fluid collections. Ventricles are normal in size and shape. Brain: No midline shift. No intracranial masses or hemorrhage. March-white matter interface is normal. Small foci of encephalomalacia within the left insular region Skull and face: Calvarium and visualized facial bones are intact, without suspicious lesions. Sinuses: Left maxillary sinus disease with air-fluid levels. The remaining visualized sinuses and mastoids are clear. IMPRESSION: 1. No acute intracranial pathology. 2. Left maxillary sinusitis. Dictated by: Eric Menjivar M.D. on 02/02/2023 at 16:15 Approved by: Eric Menjivar M.D. on 02/02/2023 at 16:17 CT - cervical spine: Radiologist's Impression: [address] [address] [address] Scan Report Signed Patient: Joel Shankar MR#: [id number] : 1945 Acct:[id number] Age/Sex: 77 / M Date of Service: 02/02/23 Loc: ED Accession Number: [id number] Procedure: CT cervical spine wo con Ordering Provider: Coby Serna D.O. PROCEDURE: CT CERVICAL SPINE WO CON INDICATIONS: Trauma TECHNIQUE: Noncontrast 3 mm thick sections acquired from the skull base to the T4 level. Sagittal and coronal reformats were then constructed. For radiation dose reduction, the following was used: automated exposure control, adjustment of mA and/or kV according to patient size. COMPARISON: None. FINDINGS: Image quality: Excellent. Bones: No fractures or dislocations. Visualized superior ribs are intact. Soft tissues: Prevertebral soft tissues are normal in thickness. No paravertebral hematomas. No apical pneumothoraces. Ground-glass opacities within the left lower lobe IMPRESSION: 1. No acute fracture or osseous malalignment. 2. Left lower lobe opacities is concerning for infectious etiologies however pulmonary contusions could have a similar appearance. Dictated by: Eric Menjivar M.D. on 02/02/2023 at 16:17 Approved by: Eric Menjivar M.D. on 02/02/2023 at 16:19 CT chest/abd/pelvis: Radiologist's Impression: Close Head CT (Signed) Eric Menjivar - 02/02/23 Chest/Abdomen/Pelvis CT (Signed) Eric Menjivar - 02/02/[address] (Signed) Eric Menjivar - 02/02/23 Chest X-Ray (Signed) Eric Menjivar - 02/02/23 Wrist MRI (Signed) David Du - 01/30/23 Wrist X-Ray (Signed) Kelle Elam - 07/07/22 Chest X-Ray (Signed) Eric Menjivar - 10/27/21 Chest X-Ray (Cancelled) 10/27/21 Knee X-Ray (Signed) Eric Menjivar - 10/27/21 Hip X-Ray (Signed) Eric Menjivar - 10/27/21 Abdomen/Pelvis CT (Signed) Oswald Munoz - 06/25/20 Chest/Abdomen/Pelvis CTA (Addendum) Candy Banks - 06/24/20 Chest X-Ray (Signed) Oswald Munoz - 06/24/20 Vascular Ultrasound (Signed) Meg Chisholm - 09/16/18 Chest X-Ray (Signed) Adrien Tay - 09/16/18 Launch?Image [address] [address] [address] Scan Report Signed Patient: Joel Shankar MR#: [id number] : 1945 Acct:[id number] Age/Sex: 77 / M Date of Service: 02/02/23 Loc: ED Accession Number: [id number] Procedure: CT chest abd pel w con Ordering Provider: Coby Serna D.O. PROCEDURE: CT CHEST ABD PEL W CON INDICATIONS: Trauma TECHNIQUE: After the administration of intravenous contrast, 5 mm thick sections acquired from the lung apices to the symphysis. 2.5 mm thick coronal and sagittal reformats were acquired. Additional 7 mm thick coronal maximum intensity projection (MIP) reformats acquired through the lungs. Optional 10-minute delayed imaging may be performed from the kidneys to the bladder. For radiation dose reduction, the following was used: automated exposure control, adjustment of mA and/or kV according to patient size. COMPARISON: [facility], CR, XR CHEST 1V, 02/02/2023, 16:42. FINDINGS: Image quality: Excellent. CHEST: Lungs: Left lower lobe ground-glass opacities with a slightly nodular appearance.. No acute airspace opacities. No pneumothorax or hemothorax. Central and peripheral airways appear patent and normal in caliber. Mediastinum: No mediastinal hematomas. Heart size is normal. No pericardial effusion. Thoracic aorta and pulmonary arteries demonstrate normal size and enhancement. No mediastinal or hilar adenopathy. Esophagus is normal in caliber. No hiatal hernia. Chest wall: No rib fractures. No subcutaneous emphysema. No axillary or supraclavicular adenopathy. Thyroid gland is unremarkable. ABDOMEN: Solid organs: Liver is normal in size and enhancement, without lacerations. Gallbladder is unremarkable. Biliary system is non-dilated. Pancreas enhances normally, without transection. Spleen is normal in size and enhancement, without lacerations. No adrenal hematomas. Both kidneys enhance normally, without hydronephrosis or lacerations. Peritoneum and bowel: No free fluid or air. Unenhanced bowel loops demonstrate normal wall thickness and caliber. Nodes and vessels: No retroperitoneal or mesenteric adenopathy. Aorta and inferior vena cava are normal in size and enhancement. Miscellaneous: No ventral hernias. PELVIS: Genitourinary: Bladder wall thickness is normal. Miscellaneous: No inguinal hernias or adenopathy. Bones: Pelvic ring and hip joints appear intact. No vertebral compression fractures. Left hip prosthesis. IMPRESSION: 1. Left upper lobe airspace opacities likely reflect infection however in the setting of trauma cannot exclude pulmonary contusion. Given the lack of rib fractures favor infectious etiologies. 2. No traumatic findings within the abdomen or pelvis. Dictated by: Eric Menjivar M.D. on 02/02/2023 at 16:09 Approved by: Eric Menjivar M.D. on 02/02/2023 at 16:14 ECG Data Attestation: I personally reviewed and interpreted this ECG as follows: Interpretation: AFib with rapid ventricular response rate of 118 QRS of 94 QTC of 451. No acute ST changes noted. MDM Narrative Medical decision making narrative: 77-year-old male who describes fall down a hill and then right leg weakness but no pain. Patient did not denies any pain he states he has been walking better since then but had to crawl after multiple falls. Patient now has normal neurologic exam overall though has not been ambulated and department. Patient did ambulate into the department. Patient activated as a modified based on Eliquis and mechanism of injury and age. Because of description of injuries and patient is tachycardic and hypotensive CT avila scan was obtained. Patient notes his systolic blood pressures typically in the 90s and has been his whole life. He states he runs about 105 for his heart rate typically. Labs show white count of 12.8 was 14 to 10 in the past 2 years. 10.8 white count, platelets of 366. INR is 2.1, sodium is 127 chloride 95 BUN 25 with a glucose of 123 otherwise normal LFTs troponin was 0.04 with a BNP of 3000. Patient has been in the 3000 range consistently on past visits. ETOH is negative. Patient had head CT with no acute change C-spine CT shows no acute fracture change. CT chest abdomen pelvis left upper lobe airspace opacity likely infection can not exclude pulmonary contusion no other traumatic findings. Patient notes he had COVID early December but that is a horta has not had infectious changes. No chest pain. Labs and patient's exam seem less likely to be infection could be more likely to be contusion no rib fractures or tenderness in that area. Patient has not had any hypoxia. Patient did describe right leg weakness with no pain. Unclear if this started after he fell or possibly was the cause of his fall. Concern for possible TIA. Spoke with Dr. Christy, discussed findings. Patient's blood pressure reportedly runs low has been 80s to 90s with some dips lower. Heart rate has not improved here in the department did receive a L of fluids. Sodium was 127 but did have right leg weakness without any pain suspect possible cause of fall although patient is pretty insistent that it happened after the fall. He is no other acute neurologic changes currently. He is on Eliquis daily so less likely to be TIA. Dr. Christy accepts for observation. Discharge Plan Departure Patient Disposition: Admitted as Observation Clinical Impression: Fall, Hyponatremia Admit Date/Time: 02/02/23 17:59 Admit Provider: Malik Christy
[2023-02-02] MEDS: SODIUM CHLORIDE 0.9% 1,000 ML 1000 ML IV ×2 (16:35→18:20)
[2023-02-02 16:45] LABS: INR 2.1 (0.9-1.3); Prothrombin Time 24.4 SECONDS (9.4-12.5)
[2023-02-02 16:47] LABS: Add Manual Diff / Slide Review NO; Basophils Absolute Auto 0 /uL (0-100); Basophils Percent Auto 0.2 % (0-2); Eosinophils Absolute Auto 0 /uL (0-450); Eosinophils Percent Auto 0.1 % (2-4); Hematocrit 37.2 % (41-53); Hemoglobin 12.8 g/dL (13.5-17.5); Lymphocytes Absolute Auto 200 /uL (1100-4500); Mean Corpuscular HGB Conc 34.3 % (30-36); Mean Corpuscular Hemoglobin 29.9 PG (26-34); Mean Corpuscular Volume 87.3 fL (80-100); Monocytes Absolute Auto 600 /uL (0-900); Monocytes Percent Auto 5.4 % (3-14); Neutrophils Absolute Auto 9900 /uL (1500-7000); Neutrophils Percent Auto 92.3 % (50-75); PTT Partial Thromboplastin Tim 32 SECONDS (25.1-36.5); Platelet Count 366 X10^3/uL (150-400); Red Blood Cell Count 4.26 X10^6/uL (4.5-5.9); Red Cell Distribution Width 13.9 % (11.6-14.8); White Blood Cell Count 10.8 X10^3/uL (4.5-11.0)
[2023-02-02 16:50] LABS: Alanine Aminotransferase 32 IU/L (<50); Albumin 3.5 g/dL (3.5-5.0); Albumin Globulin Ratio 1.1 (1.0-2.8); Alkaline Phosphatase 102 U/L (38-126); Aspartate Aminotransferase 42 IU/L (17-59); BUN Creatinine Ratio 23.4 (6-22); Bilirubin Total 0.9 mg/dL (0.2-1.3); Blood Urea Nitrogen 25 mg/dL (9-20); Calcium 9.3 mg/dL (8.4-10.2); Carbon Dioxide 24 mmol/L (22-32); Chloride 95 mmol/L (98-107); Creatine Kinase 131 U/L (55-170); Estimated Glomerular Filt Rate > 60 mL/min (>60); Ethanol (ETOH) < 10 mg/dL; Globulin 3.2 g/dL (1.7-4.1); Glucose 123 mg/dL (80-110); HEMOLYSIS < 15 (0-50); Lactate (Lactic Acid) 1.6 mmol/L (0.7-2.1); Lipase 31 U/L (23-300); Potassium 4.2 mmol/L (3.4-5.1); Sodium 127 mmol/L (137-145); Total Protein 6.7 g/dL (6.3-8.2)
[2023-02-02 16:58] LABS: NT-proBNP (BNP-Adult 18+) 3090 pg/mL (<450)
[2023-02-02 17:01] LABS: Troponin I 0.014 ng/mL (0.01-0.034)
--- NOTE | 2023-02-02 17:23 | PC.NURSE ---
During physician exam patient informed physician that his normal BP runs in the 90's systolic. BP prior to CT 94/57, HR 122, 96% RA, physician aware. Pt taken to CT at 1640 with fluid bolus running. BP dropped to 77/[address] at approx 1643, HR 112, 94% RA. Physician advised, no new orders. Pt placed reverse-trendelenberg once returned to tx room (head low - feet high). Fluid bolus running 999 per physician verbal order to improve rate and assist with improving BP. Physician at bedside when pt returned to tx room. Pt denies pain, asymptomatic, AOx4. At 1737 BP 96/56, 100HR, 94% RA.
--- NOTE | 2023-02-02 17:44 | PC.NURSE ---
Discussion with ED physician RM re: VS BP-drop 77/[address], physician aware, fluids increased to 999ml/hr, pt asymptomatic, AOx4. Per physician, patient not upgraded to full trauma due to rebound in BP and improved VSS. No new orders. Pt to be admitted for observation to r/o other underlying causes of today's fall.
--- NOTE | 2023-02-02 17:56 | P.HP_ITS ---
History of Present Illness History of Present Illness Date Patient Seen: 02/02/23 Chief complaint: Fell down bank on right side Narrative: Joel Shankar is a 77-year-old male with past medical history CVA in 2016, atrial fibrillation on Eliquis, hyperlipidemia, depression and chronic pain who presents with fall. Patient was working on a hill by his home when his R leg suddenly gave out and he fell on his side and rolled all the way down the hill. He attempted multiple times to put weight on his leg but couldn't and kept falling over. Once in the ED his symptoms resolved and he could bear weight and move his right leg normally. He denies any facial droop, speech deficits, visual changes, numbness/tingling, CP, SOB or NV. [facility] Medical History CVA (cerebral vascular accident) Hyperlipidemia A-fib Surgical History H/O aortic valve replacement Social History household members: none Smoking Status: Never smoker alcohol intake: never Meds Home Medications and Allergies Home Medications Medication Instructions Recorded Confirmed Type apixaban 5 mg tablet 5 mg PO BID 09/16/18 02/02/23 History ascorbic acid (vitamin C) 1,000 mg 1 g PO DAILY 09/16/18 02/02/23 History tablet (Vitamin C) atorvastatin 40 mg tablet 40 mg PO BEDTIME 09/16/18 02/02/23 History cholecalciferol (vitamin D3) 25 1,000 unit PO DAILY 09/16/18 02/02/23 History mcg (1,000 unit) capsule (Vitamin D3) metoprolol succinate 25 mg 25 mg PO BID 09/16/18 02/02/23 History tablet,extended release 24 hr multivitamin 1 tab PO DAILY 09/16/18 02/02/23 History sertraline 50 mg tablet 100 mg PO DAILY 09/16/18 02/02/23 History bumetanide 1 mg tablet 1 mg PO DAILY 02/02/23 02/02/23 History spironolactone 25 mg tablet 25 mg PO DAILY 02/02/23 02/02/23 History Allergies Allergy/AdvReac Type Severity Reaction Status Date / Time ampicillin Allergy Verified 07/07/22 07:53 Review of Systems Review of Systems Narrative: All other systems reviewed with the patient and are negative unless otherwise stated. Exam Vital Signs (past 8 hours): - 02/02/23 16:18 02/02/23 16:30 02/02/23 16:30 Temperature 98.1 F Pulse Rate 133 H 125 H Respiratory Rate 20 26 H Blood Pressure 108/66 94/57 L Pulse Oximetry 97 Oxygen Delivery Method Room Air 02/02/23 16:31 02/02/23 16:31 02/02/23 16:35 Temperature Pulse Rate 130 H Respiratory Rate 27 H Blood Pressure 84/49 L 81/54 L Pulse Oximetry 95 Oxygen Delivery Method 02/02/23 16:35 02/02/23 16:41 02/02/23 16:41 Temperature Pulse Rate 133 H 123 H Respiratory Rate 23 Blood Pressure 84/53 L Pulse Oximetry 96 95 Oxygen Delivery Method 02/02/23 16:43 02/02/23 16:43 02/02/23 16:45 Temperature Pulse Rate 115 H 106 H Respiratory Rate Blood Pressure 86/52 L Pulse Oximetry 95 95 Oxygen Delivery Method 02/02/23 16:45 02/02/23 16:46 02/02/23 16:46 Temperature Pulse Rate 101 H Respiratory Rate Blood Pressure 88/51 L 86/49 L Pulse Oximetry 94 Oxygen Delivery Method 02/02/23 16:48 02/02/23 16:48 02/02/23 16:50 Temperature Pulse Rate 106 H 118 H Respiratory Rate Blood Pressure 84/49 L Pulse Oximetry 95 95 Oxygen Delivery Method 02/02/23 16:50 02/02/23 16:52 02/02/23 16:52 Temperature Pulse Rate 122 H Respiratory Rate 28 H Blood Pressure 80/53 L 78/51 L Pulse Oximetry 96 Oxygen Delivery Method 02/02/23 16:54 02/02/23 16:54 02/02/23 16:55 Temperature Pulse Rate 113 H 98 H Respiratory Rate 23 31 H Blood Pressure 84/51 L Pulse Oximetry 95 94 Oxygen Delivery Method 02/02/23 16:55 02/02/23 16:56 02/02/23 16:56 Temperature Pulse Rate 101 H Respiratory Rate 29 H Blood Pressure 81/48 L 82/46 L Pulse Oximetry 94 Oxygen Delivery Method 02/02/23 16:58 02/02/23 16:58 02/02/23 17:00 Temperature Pulse Rate 109 H 109 H Respiratory Rate 22 19 Blood Pressure 87/53 L Pulse Oximetry 95 96 Oxygen Delivery Method 02/02/23 17:00 02/02/23 17:02 02/02/23 17:02 Temperature Pulse Rate 102 H Respiratory Rate 23 Blood Pressure 86/51 L 77/45 L Pulse Oximetry 95 Oxygen Delivery Method 02/02/23 17:05 02/02/23 17:05 02/02/23 17:10 Temperature Pulse Rate 101 H Respiratory Rate 21 Blood Pressure 89/49 L 89/51 L Pulse Oximetry 95 Oxygen Delivery Method 02/02/23 17:10 02/02/23 17:20 02/02/23 17:20 Temperature Pulse Rate 101 H 109 H Respiratory Rate 24 21 Blood Pressure 88/55 L Pulse Oximetry 96 92 Oxygen Delivery Method 02/02/23 17:30 02/02/23 17:30 02/02/23 17:40 Temperature Pulse Rate 105 H 105 H Respiratory Rate 25 H 23 Blood Pressure 96/56 L Pulse Oximetry 92 96 Oxygen Delivery Method 02/02/23 17:40 Temperature Pulse Rate Respiratory Rate Blood Pressure 92/55 L Pulse Oximetry Oxygen Delivery Method Oxygen Delivery Method Room Air Narrative Exam Narrative: GEN: no acute distress HEENT: moist mucous membranes, PERRL NECK: trachea midline, no JVD CV: regular rate and rhythm, no murmurs PULM: clear bilaterally ABD: soft, nontender, nondistended, no organomegaly EXT: warm and well perfused with no edema NEURO: awake, alert, oriented, no focal deficits Objective Labs 02/03/23 06:20 02/03/23 06:20 Labs: Laboratory Results - last 24 hr 02/02/23 16:35 WBC 10.8 RBC 4.26 L Hgb 12.8 L Hct 37.2 L MCV 87.3 MCH 29.9 MCHC 34.3 RDW 13.9 Plt Count 366 Neut % (Auto) 92.3 H Lymph % (Auto) 2.0 L [place] % (Auto) 5.4 Eos % (Auto) 0.1 L Baso % (Auto) 0.2 Neut # (Auto) 9900 H Lymph # (Auto) 200 L [place] # (Auto) 600 Eos # (Auto) 0 Baso # (Auto) 0 PT 24.4 H INR 2.1 H APTT 32 Sodium 127 L Potassium 4.2 Chloride 95 L Carbon Dioxide 24 BUN 25 H Creatinine 1.07 Estimated GFR > 60 BUN/Creatinine Ratio 23.4 H Glucose 123 H Lactate 1.6 Calcium 9.3 Total Bilirubin 0.9 AST 42 ALT 32 Alkaline Phosphatase 102 Total Creatine Kinase 131 Troponin I 0.014 NT-Pro-B Natriuret Pep 3090 H Total Protein 6.7 Albumin 3.5 Globulin 3.2 Albumin/Globulin Ratio 1.1 Lipase 31 Ethyl Alcohol < 10 Blood Type A Positive Antibody Screen Negative Assessment & Plan Assessment & Plan narrative: # rule out TIA -sustained sudden onset right leg weakness which caused him to fall and he could not stand on it -CT head negative, CTA head/neck pending -brain MRI ordered -continue Eliquis -continue statin -PT/OT -tele -echo ordered # atrial fibrillation with RVR -HR 130's in ED with BP 90's/50's -hold home dilt due to soft BP, continue metoprolol po -BP already soft, if lowers further will need amio # pulmonary contusion -airspace opacity of left upper lobe, possible pneumonia but in setting of fall likely represents contusion -check procal, no leukocytosis # hyponatremia -sodium 127 -continue IVF and monitor # depression -continue sertraline # HLD -continue lipitor # chronic pain -continue oxy PRN Code status is full code. DVT prophylaxis with Eliquis. Proxy is daughter Brie. I have reviewed home meds and used all available resources to reconcile the home meds. Case discussed with ED physician/APC and patient will be admitted to the hospitalist service for further workup and management. This patient will be admitted as observation and will require less than 2 midnights of hospital time to treat TIA.
--- NOTE | 2023-02-02 18:06 | DI.CT.S_ITS ---
PROCEDURE: CT ANGIO HEAD AND NECK INDICATIONS: TIA TECHNIQUE: After the administration of intravenous contrast, 1 mm thick sections acquired from the aortic arch through the [place]. 3-dimensional rzvwari-juofgmrbv-omjlzzdgpb (MIP) and/or volume rendering reformats were acquired of the central intracranial vasculature and neck separately. For radiation dose reduction, the following was used: automated exposure control, adjustment of mA and/or kV according to patient size. COMPARISON: None. FINDINGS: Image quality: Diagnostic. BRAIN: CSF spaces: Ventricles are normal in size and shape. Basal cisterns are patent. No extra-axial fluid collections. Brain: No significant abnormality of the brain can be seen. Skull and face: Calvarium and facial bones appear intact, without suspicious lesions. Orbits appear normal. Sinuses: Air-fluid level within left maxillary sinus.. HEAD CT ANGIOGRAPHY: Anterior circulation: Intracranial internal carotid arteries are normal in size and flow. The flow within the paired anterior cerebral arteries is normal and symmetric. The flow within the middle cerebral arteries is normal and symmetric. The anterior communicating artery is seen. No aneurysms are seen. Posterior circulation: Visualized portions of the vertebral arteries demonstrate normal caliber, and join to form a normal appearing basilar artery. Flow within the posterior cerebral arteries is normal and symmetric. No aneurysms are seen. NECK CT ANGIOGRAPHY: Carotid system: The great vessels demonstrate a conventional anatomy as they arise from the aortic arch. The origins of the common carotid arteries appear patent. The common carotid arteries demonstrate normal caliber and courses. The bifurcation regions are both widely patent. The internal carotid arteries demonstrate normal calibers and courses. Posterior circulation: The origins of the vertebral arteries both appear widely patent. The more superior extracranial portions of both vertebral arteries also demonstrate normal courses and calibers. They join to form a normal appearing basilar artery. Soft tissues: Visualized neck soft tissues demonstrate no suspicious abnormalities. Bones: No suspicious bony lesions. Visualized cervical spine appears normally aligned. IMPRESSION: No large vessel occlusion, aneurysm, or dissection identified. Left maxillary sinusitis. Any quantitative measurements of stenosis were performed using NASCET criteria. Dictated by: Eric Menjivar M.D. on 02/02/2023 at 17:37 Approved by: Eric Menjivar M.D. on 02/02/2023 at 17:44
--- NOTE | 2023-02-02 18:10 | DI.ECHO.S_ITS ---
[facility]---------+ [facility] +---------+ : : [address] : : : : [id number] : : : : Phone: [phone]+ Echocardiogram Report + + :Name: LITA MEYER Study Date: 02/03/2023 Height: 70 in : :[facility] ReadingLocation: Weight: 173 lb: : Gender: Male BSA: 2.0 m2 : :: 1945 Age: 77 yrs BP: 98/61 mmHg: :Reason For Study: TIA : :Ordering Physician: GABRIELLE, : :MIAN German Performed By: Lynsey Lao : :Referring: MIAN ANTHONY : + + Interpretation Summary Left ventricular ejection fraction is estimated to be 35 +/- 5%. There is moderate global hypokinesis of the left ventricle. The right ventricle is mildly dilated. There is moderate mitral regurgitation. There is moderate tricuspid regurgitation. The right ventricular systolic pressure is estimated to be at least 43 mmHg based on an estimated right atrial pressure of 15 mm Hg. There is a tricuspid valve clip visualized. There is a prosthetic aortic valve. There is no aortic valve stenosis. Procedure: A two-dimensional transthoracic echocardiogram with color flow and Doppler was performed. The study quality was technically adequate. There is no prior echocardiogram noted for this patient. The patient was in atrial fibrillation with heart rates between 63-84 bpm during the exam. Left Ventricle: The left ventricle is normal in size and wall thickness. Left ventricular ejection fraction is estimated to be 35 +/- 5%. There is moderate global hypokinesis of the left ventricle. Diastolic function could not be accurately assessed due to atrial fibrillation. Right Ventricle: The right ventricle is mildly dilated. Right ventricular systolic function is mild to moderately reduced. Atria: The left atrium is moderately dilated. The right atrium is mildly dilated. There is no Doppler evidence for an interatrial shunt. Mitral Valve: There is mild mitral annular calcification. The mitral valve leaflets appear mildly thickened, but open well. There is moderate mitral regurgitation. Aortic Valve: There is a prosthetic aortic valve. There is no aortic valve stenosis. The peak aortic velocity is 1.7 m/sec. The aortic valve mean gradient is 7 mmHg. No aortic regurgitation is present. Tricuspid Valve: There is a tricuspid valve clip visualized. There is moderate tricuspid regurgitation. The right ventricular systolic pressure is estimated to be at least 43 mmHg based on an estimated right atrial pressure of 15 mm Hg. Pulmonic Valve: There is mild pulmonic regurgitation. Great Vessels: The aortic root is normal size. The ascending aorta could not be visualized. The IVC is dilated (diameter is greater than 2.1 cm) and it collapses less than 50% with a sniff. This suggests a high right atrial pressure of 15 mm Hg. Pericardium/ Pleura There is no pericardial effusion. There is no pleural effusion. MMode/2D Measurements & Calculations LVIDd: 4.7 cm LVOT diam: 2.0 cm LVIDs: 3.7 cm Ao root diam: 3.4 cm FS: 21.5 % Ao Arch Diam (Prox Trans): 3.0 cm EPSS: 0.81 cm IVSd: 0.83 cm LVPWd: 0.78 cm LV callahan. diameter/BSA (cm/m^2): 2.4 LV sys. diameter/BSA (cm/m^2): 1.9 LA A2 area: 26.0 cm2 RA long axis: 6.1 cm LA A4 area: 28.3 cm2 RA area: 24.3 cm2 LA length (vol): 7.0 cm RA vol: 81.7 ml LA vol: 88.4 ml RA : 41.6 ml/m2 LA vol index: 45.1 ml/m2 IVC diam: 2.8 cm RVD1 (basal): 4.4 cm RVD2 (mid): 2.8 cm TAPSE: 1.1 cm Doppler Measurements & Calculations Ao V2 max: 168.4 cm/sec LVOT Max Melo: 77.2 cm/sec Ao V2 mean: 125.6 cm/sec LV V1 max P.4 mmHg Ao max P.4 mmHg LV V1 VTI: 15.6 cm Ao mean P.0 mmHg MISTY(I,D): 1.6 cm2 Ao V2 VTI: 31.8 cm MISTY(V,D): 1.4 cm2 sev ratio: 0.49 MISTY indexed to BSA (cm^2/m^2): 0.79 MV E max melo: 55.1 cm/sec TR max melo: 264.8 cm/sec MV A max melo: 114.9 cm/sec TR max P.0 mmHg MV E/A: 0.48 PA V2 max: 80.9 cm/sec Med Peak E' Melo: 6.1 cm/sec PA V2 mean: 61.4 cm/sec E/E' med: 9.1 PA mean P.6 mmHg Lat Peak E' Melo: 9.6 cm/sec PA pr(Accel): 43.0 mmHg E/E' lat: 5.8 E/e' average: 7.4 MV dec time: 0.14 sec SV(LVOT): 49.4 ml Reading Physician:10:44 AM
[2023-02-02 18:37] LABS: Cholesterol 124 mg/dL (140-199); HDL Cholesterol 29 mg/dL (40-60); LDL Cholesterol Calculated 86 mg/dL (<100); Triglycerides 44 mg/dL (35-150)
[2023-02-02] MEDS: TET,DIPH,PERTUSS(ACELL),VAC/PF 0.5 ML SYRINGE IM (18:37)
[2023-02-02 18:40] LABS: Hemoglobin A1C% w Est Avg Glu 6.4 % (4.0-6.0)
[2023-02-02 18:41] LABS: Procalcitonin 0.23 ng/mL (<0.5)
[2023-02-02 18:44] LABS: Magnesium 2.1 mg/dL (1.6-2.3)
[2023-02-02 19:16] LABS: TSH w/ Reflex to FT4 2.76 uIU/mL (0.47-4.68)
[2023-02-02 19:56] LABS: Appearance Urine UA CLEAR; Bilirubin Urine UA NEGATIVE (NEGATIVE); Color Urine UA YELLOW; Glucose Urine UA NEGATIVE (Negative); Ketones Urine UA NEGATIVE (NEGATIVE); Leukocyte Esterase Urine UA NEGATIVE (NEGATIVE); Nitrite Urine UA NEGATIVE (Negative); Occult Blood Urine UA NEGATIVE (Negative); Protein Urine UA NEGATIVE (Negative); Specific Gravity Urine UA <=1.005 (1.000-1.035); Urobilinogen Urine UA 0.2 E.U./dL (0.2)
[2023-02-02 20:01] LABS: UR Morphine/Opiate cutoff 300 Negative (Negative); Ur Creatinine Normal (Normal); Ur Specific Gravity Normal (Normal); Urine Amphetamines Negative (Negative); Urine Barbiturates Negative (Negative); Urine Benzodiazepines Negative (Negative); Urine Cocaine Negative (Negative); Urine MDMA Negative (Negative); Urine Methadone Negative (Negative); Urine Methamphetamines Negative (Negative); Urine Oxycodone Negative (Negative); Urine Phencyclidine Negative (Negative); Urine Tetrahydrocannabinol Negative (Negative); Urine Tricyclic Antidepressant Negative (Negative); Urine pH Normal (Normal)
[2023-02-02 20:04] LABS: Bacteria Urine Occasional (0-1); Culture Indicated Urine Cult Not Indicated; RBC Urine None Seen (0-5/HPF); Squamous Epithelial Cell Urine None Seen (0-5/HPF); WBC Urine 0-1/HPF (0-5/HPF)
[2023-02-02] MEDS: ATORVASTATIN 20 MG TABLET 40 MG PO (21:24)
[2023-02-02] MEDS: SODIUM CHLORIDE 0.9% 1,000 ML 100 ML IV (21:24)
[2023-02-02] MEDS: APIXABAN 5 MG TABLET PO (21:24)
[2023-02-03] VITALS (11 sets, daily range): BP systolic 85–122; BP diastolic 49–85; PULSE 63–125; RESP 18–20; TEMP 36.3–37.6; O2SAT 94–97
[2023-02-03 07:00] LABS: Add Manual Diff / Slide Review NO; Basophils Absolute Auto 0 /uL (0-100); Basophils Percent Auto 0.5 % (0-2); Eosinophils Absolute Auto 200 /uL (0-450); Eosinophils Percent Auto 2.6 % (2-4); Hemoglobin 12.3 g/dL (13.5-17.5); Lymphocytes Absolute Auto 600 /uL (1100-4500); Lymphocytes Percent Auto 7.6 % (25-40); Mean Corpuscular Hemoglobin 29.9 PG (26-34); Mean Corpuscular Volume 87.9 fL (80-100); Monocytes Absolute Auto 1000 /uL (0-900); Monocytes Percent Auto 12.4 % (3-14); Neutrophils Absolute Auto 6300 /uL (1500-7000); Neutrophils Percent Auto 76.9 % (50-75); Platelet Count 354 X10^3/uL (150-400); Red Cell Distribution Width 13.8 % (11.6-14.8); White Blood Cell Count 8.2 X10^3/uL (4.5-11.0)
[2023-02-03 07:26] LABS: BUN Creatinine Ratio 27.6 (6-22); Blood Urea Nitrogen 21 mg/dL (9-20); Calcium 8.4 mg/dL (8.4-10.2); Carbon Dioxide 24 mmol/L (22-32); Chloride 100 mmol/L (98-107); Estimated Glomerular Filt Rate > 60 mL/min (>60); Glucose 83 mg/dL (80-110); HEMOLYSIS < 15 (0-50); Potassium 3.4 mmol/L (3.4-5.1); Sodium 131 mmol/L (137-145)
[2023-02-03 07:42] LABS: Procalcitonin 0.47 ng/mL (<0.5)
[2023-02-03] MEDS: SERTRALINE 50 MG TABLET 100 MG PO (09:13)
[2023-02-03] MEDS: APIXABAN 5 MG TABLET PO ×2 (09:13→20:13)
[2023-02-03] MEDS: METOPROLOL ER 25 MG TABLET 12.5 MG PO (09:13)
--- NOTE | 2023-02-03 11:43 | PT.IIE ---
Surgical History (Last Reviewed 02/02/23 @ 16:37 by Coby Serna DO) H/O aortic valve replacement Medical History (Last Reviewed 02/02/23 @ 16:37 by Coby Serna DO) A-fib CVA (cerebral vascular accident) Hyperlipidemia Physical Therapy Inpatient Evaluation/Re-Eval M1 PT/OT-IP Prior Functional Status Start: 02/03/23 08:13 Freq: NEEDED Status: Active Protocol: Document 02/03/23 11:10 MB (Rec: 02/03/23 11:42 MB [id number]) Medical Review Prior Functional Status Medical History Reviewed Yes Diet/Fluid Consistency Regular Communication WNLs Mobility and Gait I Activities of Daily Living and IADL's I Social History Household Members none Living Arrangements House Number of Floors (Floors) One Floor Number of Stairs To Enter/Railing? 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 M2 PT-IP Current Condition Start: 02/03/23 08:13 Freq: NEEDED Status: Active Protocol: Document 02/03/23 11:10 MB (Rec: 02/03/23 11:42 MB [id number]) Physical Therapy Current Condition Current Condition Evaluation Date 02/03/23 M3 PT-IP Subjective Start: 02/03/23 08:13 Freq: NEEDED Status: Active Protocol: Document 02/03/23 11:10 MB (Rec: 02/03/23 11:42 MB [id number]) Subjective Physical Therapy Visit Type Type Initial Evaluation Visit Start Time 11:10 Visit Stop Time 11:30 Total Visit Minutes 20 Number of GROUP [employer] INSTRUCTOR Visits 0 Physical Therapy Visit Comments Patient Comments I think so. When PT asks pt if he thinks he is ready to go home today M4 PT-IP Mobility and Gait Start: 02/03/23 08:13 Freq: NEEDED Status: Active Protocol: Document 02/03/23 11:10 MB (Rec: 02/03/23 11:42 MB [id number]) PT-Bed Mobility Assessment Supine to Sit Supine to Sit Independent,Head of Bed Elevated Sit to Supine Sit to Supine Independent,Head of Bed Elevated PT-Transfer Assessment Sit to and From Stand Sit to and from Stand Independent,Standby Assistance Equipment Transfer Assistive Device Gait Belt Orthotic/Prosthetic Devices or Brace: No Transfer Ability Level of Assist Independent,Standby Assistance Gait Assessment Gait Gait Assistance Required: Independent,Standby Assistance Distance (Feet) 100 Able to Maintain Weight Bearing Status Yes During Gait Assistive Devices Assistive Device Gait Belt Gait Deviations General Gait Pattern Antalgic,Decreased Stride Length Comments Gait Comments Pt reports a strain-type sensation at right adductor area since his fall. He is initially SBA for transfers and gait and then requires closer to superv to I with slow gait pattern, occ step-to scarlett with shorter steps and wide DOE. He gait trains 100'x2. Stair Climbing Assessment Evaluation Level of Assist On Stairs Independent Devices Stair Climbing Assistive Devices Left Railing Technique/Endurance Stair Climbing Direction Ascend and Descend Stair Climbing Technique Step Over Step,Step to Step Number of Steps Climbed 3 Query Text: Stair Climbing Set # Repetitions (reps) 1 Comments Stair Climbing Comments Step over and step to step gait observed today PT-Balance Assessment Sitting Balance and Reactions Static Sitting Balance Ability Good Dynamic Sitting Balance Ability Good Standing Balance and Reactions Static Standing Balance Ability Good Dynamic Standing Balance Ability Good M5 PT-IP Objective Assessments Start: 02/03/23 08:13 Freq: NEEDED Status: Active Protocol: Document 02/03/23 11:10 MB (Rec: 02/03/23 11:42 MB [id number]) Orientation Orientation/Cognition Level of Alertness Alert Orientation Name,Age,Birthday,Month,Year, Day of Week,Place,Situation Language Function Ability No Deficits Noted Safety Awareness Understands Safety Issues Memory Description No Deficits Noted Gross Range of Motion Upper Extremity ROM Assessment Within Functional Limits Lower Extremity ROM Assessment Within Functional Limits Strength Upper Extremity Strength Assessment Within Functional Limits Lower Extremity Strength Assessment Within Functional Limits Comments Strength Comments PT cannot detect any weakness with MMT right hip flexor, knee flexor and extensor and DF. Pt does report a pull/ strange sensataion over right adductor after the fall Sensation Assessment Sensation Gross Sensation WNL M7 PT-IP Assessment and Plan Start: 02/03/23 08:13 Freq: NEEDED Status: Active Protocol: Document 02/03/23 11:10 MB (Rec: 02/03/23 11:42 MB [id number]) PT Summary Assessment and Plan Potential Rehabilitation Potential Good Status of Condition at Evaluation Evolving Summary Impairments Balance Progress Towards Goals Safe For Discharge Assessment Summary Pt is a 77 y/o male who lives at home alone and has a history of stroke. He fell on a bank while raking and states he landed on his left side. He c/o right adductor area having a strange/pull sensation and it is tight myofascially. He does not have any complaints of real pain with PT and his gait is somewhat antalgic in nature. He is SBA to superv to I with gait with this pattern after increased gait distance 100'x2 . He is receptive to PT suggestions about keeping his cell phone with him in the future as well as having his kids check in on him this evening and week. Pt is in [place] and kids are in [facility]. Overall, given history of falls and stroke, pt will con' t to be at increased risk for falls. Recommend OPPT or balance/exercise class as pt agreeable in the future. Frequency of Treatment Frequency Of Treatment Discharge Weight Bearing Status Weight Bearing Status Weight Bear as Tolerated Recommendations To Nursing Amount of Assist Needed Standby Assistance Discharge Recommendations PT Discharge Recommendations Home with Assistance, Outpatient PT Transportation Needs at Discharge Private Vehicle
[2023-02-03] MEDS: POTASSIUM CHLORIDE 20 MEQ TAB 40 MEQ PO (14:05)
[2023-02-03] MEDS: lisinopriL 5 MG TABLET 2.5 MG PO (14:52)
[2023-02-03] MEDS: cefTRIAXone 1,000 MG in SODIUM CHLORIDE 0.9% 100 ML 200 MG IV (14:59)
--- NOTE | 2023-02-03 15:26 | PM.PN.1 ---
Subjective Subjective Interval history: MRI negative for stroke. However echo with EF 35+/-5%. Patient says he has no history of CHF. 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 He notes an ongoing cough with some mucus production. Exam Vital Signs (past 8 hours): - 02/03/23 09:07 02/03/23 09:13 02/03/23 12:00 Temperature 97.9 F Pulse Rate 82 92 H Pulse Rate [Orthostatic Lying] Pulse Rate [Orthostatic Sitting] Pulse Rate [Orthostatic Standing] Respiratory Rate 18 Blood Pressure 96/64 107/63 Blood Pressure [Orthostatic Lying] Blood Pressure [Orthostatic Sitting] Blood Pressure [Orthostatic Standing] Pulse Oximetry 95 Oxygen Delivery Method Room Air Oxygen Flow Rate 0 02/03/23 13:50 02/03/23 14:52 Temperature Pulse Rate 95 H Pulse Rate [Orthostatic Lying] 93 H Pulse Rate [Orthostatic Sitting] 94 H Pulse Rate [Orthostatic Standing] 125 H Respiratory Rate Blood Pressure 104/62 Blood Pressure [Orthostatic Lying] 106/66 Blood Pressure [Orthostatic Sitting] 114/73 Blood Pressure [Orthostatic Standing] 96/67 Pulse Oximetry Oxygen Delivery Method Oxygen Flow Rate Oxygen Delivery Method Room Air Oxygen Flow Rate 0 Narrative Exam Narrative: GEN: no acute distress HEENT: dry mucous membranes, PERRL NECK: trachea midline, no JVD CV: regular rate and rhythm, no murmurs PULM: clear bilaterally ABD: soft, nontender, nondistended, no organomegaly EXT: warm and well perfused with no edema NEURO: awake, alert, oriented, no focal deficits Objective Labs 02/03/23 06:20 02/03/23 06:20 Labs: Laboratory Results - last 24 hr 02/02/23 02/02/23 02/02/23 16:35 16:41 19:53 WBC 10.8 RBC 4.26 L Hgb 12.8 L Hct 37.2 L MCV 87.3 MCH 29.9 MCHC 34.3 RDW 13.9 Plt Count 366 Neut % (Auto) 92.3 H Lymph % (Auto) 2.0 L [place] % (Auto) 5.4 Eos % (Auto) 0.1 L Baso % (Auto) 0.2 Neut # (Auto) 9900 H Lymph # (Auto) 200 L [place] # (Auto) 600 Eos # (Auto) 0 Baso # (Auto) 0 PT 24.4 H INR 2.1 H APTT 32 Sodium 127 L Potassium 4.2 Chloride 95 L Carbon Dioxide 24 BUN 25 H Creatinine 1.07 Estimated GFR > 60 BUN/Creatinine Ratio 23.4 H Glucose 123 H Hemoglobin A1c 6.4 H Lactate 1.6 Calcium 9.3 Magnesium 2.1 Total Bilirubin 0.9 AST 42 ALT 32 Alkaline Phosphatase 102 Total Creatine Kinase 131 Troponin I 0.014 NT-Pro-B Natriuret Pep 3090 H Total Protein 6.7 Albumin 3.5 Globulin 3.2 Albumin/Globulin Ratio 1.1 Triglycerides 44 Cholesterol 124 L LDL Cholesterol, Calc 86 HDL Cholesterol 29 L Lipase 31 Procalcitonin 0.23 TSH 2.76 Urine Color Yellow Urine Appearance Clear Urine pH 5.0 Ur Specific [place] <=1.005 Urine Protein Negative Urine Glucose (UA) Negative Urine Ketones Negative Urine Occult Blood Negative Urine Nitrate Negative Urine Bilirubin Negative Urine Urobilinogen 0.2 Ur Leukocyte Esterase Negative Urine RBC None seen Urine WBC 0-1/hpf Ur Squamous Epith Cells None seen Urine Bacteria Occasional (0-1) Ur Culture Indicated? Cult not indicated U Opiates 300ng/mL cut Negative Ur Oxycodone Screen Negative Urine Methadone Screen Negative Ur Barbiturates Screen Negative U Tricyclic Antidepress Negative Ur Phencyclidine Scrn Negative Ur Amphetamines Screen Negative U Methamphetamines Scrn Negative Ur MDMA Scrn (Ecstasy) Negative U Benzodiazepines Scrn Negative Urine Cocaine Screen Negative U Marijuana (THC) Screen Negative Ethyl Alcohol < 10 Blood Type A Positive Antibody Screen Negative 02/03/23 06:20 WBC 8.2 RBC 4.10 L Hgb 12.3 L Hct 36.0 L MCV 87.9 MCH 29.9 MCHC 34.0 RDW 13.8 Plt Count 354 Neut % (Auto) 76.9 H Lymph % (Auto) 7.6 L [place] % (Auto) 12.4 Eos % (Auto) 2.6 Baso % (Auto) 0.5 Neut # (Auto) 6300 Lymph # (Auto) 600 L [place] # (Auto) 1000 H Eos # (Auto) 200 Baso # (Auto) 0 PT INR APTT Sodium 131 L Potassium 3.4 Chloride 100 Carbon Dioxide 24 BUN 21 H Creatinine 0.76 Estimated GFR > 60 BUN/Creatinine Ratio 27.6 H Glucose 83 Hemoglobin A1c Lactate Calcium 8.4 Magnesium Total Bilirubin AST ALT Alkaline Phosphatase Total Creatine Kinase Troponin I NT-Pro-B Natriuret Pep Total Protein Albumin Globulin Albumin/Globulin Ratio Triglycerides Cholesterol LDL Cholesterol, Calc HDL Cholesterol Lipase Procalcitonin 0.47 TSH Urine Color Urine Appearance Urine pH Ur Specific [place] Urine Protein Urine Glucose (UA) Urine Ketones Urine Occult Blood Urine Nitrate Urine Bilirubin Urine Urobilinogen Ur Leukocyte Esterase Urine RBC Urine WBC Ur Squamous Epith Cells Urine Bacteria Ur Culture Indicated? U Opiates 300ng/mL cut Ur Oxycodone Screen Urine Methadone Screen Ur Barbiturates Screen U Tricyclic Antidepress Ur Phencyclidine Scrn Ur Amphetamines Screen U Methamphetamines Scrn Ur MDMA Scrn (Ecstasy) U Benzodiazepines Scrn Urine Cocaine Screen U Marijuana (THC) Screen Ethyl Alcohol Blood Type Antibody Screen PFSH Medical History CVA (cerebral vascular accident) Hyperlipidemia A-fib Surgical History H/O aortic valve replacement Social History household members: none Smoking Status: Never smoker alcohol intake: never Assessment & Plan Assessment & Plan narrative: # rule out TIA -sustained sudden onset right leg weakness which caused him to fall and he could not stand on it -CT head negative, CTA head/neck pending -brain MRI ordered -continue Eliquis and aspirin -continue statin -PT/OT cleared for home -echo as below # new-onset CHF -echo with EF 35+/-%5, global LV hypokinesis, mod MR and TR, RVSP 43. Patient has not history of CHF. 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 [facility] -continue metoprolol, stop dilt -start lisinopril 2.5mg daily due to soft BP -pt will f/up with his piercing mill operator for ongoing management # atrial fibrillation, with RVR resolve -HR 130's in ED with BP 90's/50's -hold home dilt due to soft BP, continue metoprolol po -HR improved # pneumonia vs pulmonary contusion -airspace opacity of left upper lobe, possible pneumonia but also could be contusion however no broken ribs -procal 0.47 -start rocephin and azithro # hyponatremia, improving -sodium 127 initially, now 131 -continue IVF and monitor # depression -continue sertraline # HLD -continue lipitor # chronic pain -continue oxy PRN Code status is full code. DVT prophylaxis with Eliquis. Proxy is daughter Brie. I have reviewed home meds and used all available resources to reconcile the home meds. Dispo: Home on 02/04 likely.
[2023-02-03] MEDS: AZITHROMYCIN 250 MG TABLET 500 MG PO (15:44)
--- NOTE | 2023-02-03 16:54 | CM.DANOTE ---
Discharge Planning/Care Management CM Discharge Assessment Start: 02/03/23 16:51 Freq: Status: Active Protocol: Document 02/03/23 16:51 NAEL (Rec: 02/03/23 16:54 NAEL [id number]) Discharge Planning Assessment Assigned Human Resources Training Manager PENNIE Wu DPOA/Assigned Designee Name ramona Beltrán Contact Information [phone] Advance Directives? Yes Advance Directives on File No History Provided By Patient,Medical Record Prior Living Arrangements House Household Members none Type of transporation used prior to Drives own vehicle admit Independent with ADL's Yes Is patient alert and oriented? Yes Barriers to Discharge No Comment Patient OBS after presenting from home, leg gave out while raking leaves, TIA work up. Patient's sx resolved, patient eager to return home and cleared by PT for this plan. No barriers identified to safe return home w/recommendation for close outpatient follow up . Discharge Plan Home Transportation Arrangement Family Referrals Initiated None needed
[2023-02-03] MEDS: METOPROLOL TARTRATE 5 MG/5 ML INJ IV ×2 (18:40→20:13)
[2023-02-03] MEDS: ATORVASTATIN 20 MG TABLET 40 MG PO (20:13)
[2023-02-04 01:39] VITALS: BP 122/69; PULSE 106; RESP 19; TEMP 36.9; O2SAT 95
[2023-02-04 06:41] LABS: Add Manual Diff / Slide Review NO; Basophils Absolute Auto 0 /uL (0-100); Basophils Percent Auto 0.6 % (0-2); Eosinophils Absolute Auto 100 /uL (0-450); Eosinophils Percent Auto 1.1 % (2-4); Hematocrit 35.3 % (41-53); Lymphocytes Absolute Auto 500 /uL (1100-4500); Lymphocytes Percent Auto 6.3 % (25-40); Mean Corpuscular HGB Conc 34.1 % (30-36); Mean Corpuscular Hemoglobin 30.1 PG (26-34); Mean Corpuscular Volume 88.1 fL (80-100); Monocytes Absolute Auto 800 /uL (0-900); Monocytes Percent Auto 10.1 % (3-14); Neutrophils Absolute Auto 6500 /uL (1500-7000); Neutrophils Percent Auto 81.9 % (50-75); Platelet Count 326 X10^3/uL (150-400); Red Cell Distribution Width 13.7 % (11.6-14.8); White Blood Cell Count 7.9 X10^3/uL (4.5-11.0)
[2023-02-04 06:47] VITALS: BP 121/65; PULSE 81; RESP 24; TEMP 36.6; O2SAT 96
[2023-02-04 06:48] LABS: BUN Creatinine Ratio 22.9 (6-22); Blood Urea Nitrogen 16 mg/dL (9-20); Calcium 8.7 mg/dL (8.4-10.2); Carbon Dioxide 21 mmol/L (22-32); Chloride 99 mmol/L (98-107); Estimated Glomerular Filt Rate > 60 mL/min (>60); Glucose 93 mg/dL (80-110); HEMOLYSIS < 15 (0-50); Potassium 4.1 mmol/L (3.4-5.1); Sodium 128 mmol/L (137-145)
[2023-02-04] MEDS: lisinopriL 5 MG TABLET 2.5 MG PO (09:00)
[2023-02-04] MEDS: APIXABAN 5 MG TABLET PO (09:00)
[2023-02-04] MEDS: METOPROLOL ER 25 MG TABLET 50 MG PO (09:01)
[2023-02-04] MEDS: SERTRALINE 50 MG TABLET 100 MG PO (09:01)
[2023-02-04] MEDS: cefTRIAXone 1,000 MG in SODIUM CHLORIDE 0.9% 100 ML 200 MG IV (13:42)
[2023-02-04 14:00] VITALS: BP 103/58; PULSE 56; RESP 16; TEMP 36.1; O2SAT 98
[2023-02-04] MEDS: AZITHROMYCIN 250 MG TABLET 500 MG PO (16:04)
--- NOTE | 2023-02-04 16:30 | CM.DPNOTE ---
DCP Note [employer] reviewed EMR. Per provider, afib with RVR overnight with new CHF diagnosis. Does not change DCP, likely to dc home today. Per chart, pt likley home with family support today. No CM needs identified at this time. CM team will follow as needed. Lupe Casarez, PENNIE
--- NOTE | 2023-02-04 17:43 | PM.DS.1 ---
History of Present Illness History of Present Illness Chief complaint: Fell down bank on right side Narrative: Joel Shankar is a 77-year-old male with past medical history CVA in 2016, atrial fibrillation on Eliquis, hyperlipidemia, depression and chronic pain who presents with fall. Patient was working on a hill by his home when his R leg suddenly gave out and he fell on his side and rolled all the way down the hill. He attempted multiple times to put weight on his leg but couldn't and kept falling over. Once in the ED his symptoms resolved and he could bear weight and move his right leg normally. He denies any facial droop, speech deficits, visual changes, numbness/tingling, CP, SOB or NV. Discharge Providers Provider Date of admission: 02/02/23 17:59 Discharge Date: 02/04/23 Primary care physician: Rito Gr MD Consults: 02/02/23 18:09 Consult to Physical Therapy Evaluate & Treat Comment: Physician Instructions: Evaluate and Treat 02/02/23 18:10 Consult to Occupational Therapy Evaluate & Treat Comment: Physician Instructions: Evaluate and treat Discharge provider: Malik Christy DO Summary Hospital Course Discharge Diagnosis: # rule out TIA -sustained sudden onset right leg weakness which caused him to fall and he could not stand on it -CT head negative, CTA head/neck negative -brain MRI ordered and negative -continue Eliquis and aspirin -continue statin -PT/OT cleared for home -echo as below # new-onset CHF -echo with EF 35+/-%5, global LV hypokinesis, mod MR and TR, RVSP 43. Patient has no history of CHF and per daughter prior echo had EF 55% a few months ago. -continue metoprolol, stop dilt -start lisinopril 2.5mg daily due to soft BP, lower spironolactone to 12.5 daily -spoke with Dr. Alvarez patient's general machinist at [facility] who agreed with GDMT and will see patient in clinic soon # atrial fibrillation, with RVR resolved -HR 130's in ED with BP 90's/50's -hold home dilt due to soft BP, continue metoprolol po -HR improved with IV metop pushes # pneumonia vs pulmonary contusion -airspace opacity of left upper lobe, possible pneumonia but also could be contusion however no broken ribs -procal 0.47 -start rocephin and azithro -discharged on po cefdinir due to ampicillin allergy # hyponatremia, improving -sodium 127 initially, now 131 -continue IVF and monitor # depression -continue sertraline # HLD -continue lipitor # chronic pain -continue oxy PRN Hospital Course: Admitted for TIA rule-out after R leg gave out and was very weak then completely resolved. MRI negative. Echo showed new EF 35%. Continued metoprolol, started lisinopril and lowered spironolactone due to soft BP. Orthostatics were negative despite lower systolic BP. Spoke with his general machinist over the phone Dr. Alvarez at [facility] who agreed with plan and will f/up with patient soon to discuss his new CHF. Eliquis continued. Exam Vital Signs (past 8 hours): - 02/04/23 14:00 Temperature 97 F L Pulse Rate 56 L Respiratory Rate 16 Blood Pressure 103/58 L Pulse Oximetry 98 Oxygen Delivery Method Room Air Oxygen Flow Rate 0 Narrative Exam Narrative: GEN: no acute distress HEENT: dry mucous membranes, PERRL NECK: trachea midline, no JVD CV: regular rate and rhythm, no murmurs PULM: clear bilaterally ABD: soft, nontender, nondistended, no organomegaly EXT: warm and well perfused with no edema NEURO: awake, alert, oriented, no focal deficits Objective Labs 02/04/23 05:55 02/04/23 05:55 Labs: Laboratory Results - last 24 hr 02/04/23 05:55 WBC 7.9 RBC 4.00 L Hgb 12.0 L Hct 35.3 L MCV 88.1 MCH 30.1 MCHC 34.1 RDW 13.7 Plt Count 326 Neut % (Auto) 81.9 H Lymph % (Auto) 6.3 L [place] % (Auto) 10.1 Eos % (Auto) 1.1 L Baso % (Auto) 0.6 Neut # (Auto) 6500 Lymph # (Auto) 500 L [place] # (Auto) 800 Eos # (Auto) 100 Baso # (Auto) 0 Sodium 128 L Potassium 4.1 Chloride 99 Carbon Dioxide 21 L BUN 16 Creatinine 0.70 Estimated GFR > 60 BUN/Creatinine Ratio 22.9 H Glucose 93 Calcium 8.7 Procalcitonin 0.30 PFSH Medical History CVA (cerebral vascular accident) Hyperlipidemia A-fib Surgical History H/O aortic valve replacement Social History household members: none Smoking Status: Never smoker alcohol intake: never Discharge Plan Discharge Plan Patient Disposition: Home Provider Discharge Comment: You were admitted for a possible TIA. Your stroke workup was reassuring and brain MRI was negative. We found your heart function on echo to be 35%. Due to this I've added a heart med to take called lisinopril. You may take the rest of your heart meds as you normally do, except I would lower your spironolactone from 25 to 12.5mg daily. Please follow-up with Dr. Alvarez your general machinist milo to discuss your echo findings. I've also put you on antibiotics for a possible pneumonia. Discharge orders & Medications Prescriptions: New lisinopril 5 mg Tablet 2.5 mg PO DAILY Qty: 30 0RF cefdinir 300 mg capsule 300 mg PO BID 3 Days Qty: 6 0RF azithromycin 500 mg tablet 500 mg PO DAILY 2 Days Qty: 2 0RF Continued atorvastatin 40 mg tablet 40 mg PO BEDTIME Patient Comments: TK 1 T PO QD apixaban 5 mg tablet 5 mg PO BID multivitamin Tablet 1 tab PO DAILY ascorbic acid (vitamin C) [Vitamin C] 1,000 mg Tablet 1 g PO DAILY metoprolol succinate 25 mg tablet extended release 24 hr 25 mg PO BID Rx Instructions: takes 1.5 tab am and 1 tab at night sertraline 50 mg tablet 100 mg PO DAILY cholecalciferol (vitamin D3) [Vitamin D3] 1,000 unit Capsule 1,000 unit PO DAILY bumetanide 1 mg tablet 1 mg PO DAILY Changed spironolactone 25 mg tablet 12.5 mg PO DAILY Qty: 30 0RF Follow up/Referrals: Rito Gr MD [Primary Care Provider] - 2 Weeks Visit Report/Discharge Packet Instructions: DI for Heart Failure, DI for Pneumonia -- Adult, DI for Transient Ischemic Attack, DI for Hyponatremia, How to Prevent Falls, DI for Muscle Weakness Stand Alone Forms: Patient Portal/API, Stroke Signs & Symptoms Discharge Data Primary Care Provider: Rito Gr Attending Provider: Malik Christy Admit Date/Time: 02/02/23 17:59
--- NOTE | 2023-02-04 20:14 | PC.NURSE ---
Discharge: Pt d/c to home via auto with dtr. D/c instructions reviewed with both. RX has been esent. Questions answered.
== END 2023-02-04 16:40 | disposition home or self-care (01) ==
LOC: ED 16:35 → AC 18:00
PROVIDERS: Admitting Provider Student in an Organized Health Care Education/Training Program; Emergency Provider Emergency Medicine; PCP Internal Medicine; Referring Provider Emergency Medicine; Visit Provider Student in an Organized Health Care Education/Training Program
DX: R53.1 Weakness (principal); I50.9 Heart failure, unspecified; R91.8 Other nonspecific abnormal finding of lung field; I48.91 Unspecified atrial fibrillation; W17.81XA Fall down embankment (hill), initial encounter; Y93.H1 Activity, digging, shoveling and raking; Y92.007 Garden or yard of unspecified non-institutional (private) residence as the place of occurrence of the external cause; Z86.73 Personal history of transient ischemic attack (TIA), and cerebral infarction without residual deficits; F32.A Depression, unspecified; E78.5 Hyperlipidemia, unspecified; E87.1 Hypo-osmolality and hyponatremia; G89.29 Other chronic pain; Z23 Encounter for immunization
CPT/HCPCS: 36415; 70450; 70496; 70498; 70551; 71045; 71260; 72125; 74177; 80048; 80053; 80061; 80305; 80320; 81001; 82550; 82962; 83036; 83605; 83690; 83735; 83880; 84145; 84443; 84484; 85025; 85610; 85730; 86850; 86900; 86901; 90471; 93005; 93010; 93306; 96365; 96375; 97161; 99284; 99285; G0378; 90715; J0696; Q9967

== ENCOUNTER → 2023-02-10 16:32 | Outpatient (CLI) | payer MEDICARE, OTHER, SELFPAY ==
[2023-02-02 19:13] VITALS: BMI 24.8
[2023-02-10 17:42] LABS: Influenza A - CEPHEID Flu A NEGATIVE (NEGATIVE); Influenza B - CEPHEID Flu B NEGATIVE (NEGATIVE); Respiratory Syncytial Virus POSITIVE (Negative)
[2023-02-10 18:49] LABS: COVID-19 CEPHEID 4-PLEX PCR POSITIVE (Negative)
== END ==
PROVIDERS: PCP Internal Medicine; Visit Provider Physician Assistant
DX: R05.9 Cough, unspecified (principal)
CPT/HCPCS: 0241U

== ENCOUNTER → 2023-02-10 16:41 | Outpatient (CLI) | payer MEDICARE, OTHER, SELFPAY ==
[2023-02-02 19:13] VITALS: BMI 24.8
--- NOTE | 2023-02-10 16:43 | DI.RAD.S_ITS ---
PROCEDURE: XR CHEST 2V INDICATIONS: cough, SOB TECHNIQUE: 2 views of the chest were acquired. COMPARISON: [facility], CR, XR CHEST 1V, 02/02/2023, 16:42. [facility], CR, XR CHEST 1V, 10/27/2021, 13:03. FINDINGS: Surgical changes and devices: Sternotomy , prosthetic valve, atrial appendage clip. Lungs and pleura: Patchy bilateral airspace opacities. Mediastinum: Mediastinal contours are normal. Heart size is normal. Bones and chest wall: No suspicious bony abnormalities. Soft tissues appear unremarkable. IMPRESSION: Patchy bilateral airspace opacities, probably organizing pneumonia setting of recent COVID-19. Dictated by: Power Ayoub M.D. on 02/10/2023 at 17:02 Approved by: Power Ayoub M.D. on 02/10/2023 at 17:03
== END ==
PROVIDERS: PCP Internal Medicine; Referring Provider Physician Assistant; Visit Provider Physician Assistant
DX: R05.9 Cough, unspecified (principal)
CPT/HCPCS: 0241U; 71046

== ENCOUNTER 2023-02-11 15:42 | Emergency (ER) | payer MEDICARE, OTHER, SELFPAY ==
[2023-02-02 19:13] VITALS: BMI 24.8
[2023-02-11] VITALS (10 sets, daily range): BP systolic 96–110; BP diastolic 60–78; PULSE 85–106; RESP 20–30; TEMP 36.4; O2SAT 95–97; BMI 24.8
--- NOTE | 2023-02-11 17:27 | ED_ITS ---
HPI - General Adult General Chief complaint: Shortness of Breath/Dyspnea Stated complaint: fell/poss pneminia Time Seen by Provider: 02/11/23 17:14 Source: patient and family Mode of arrival: Ambulatory History of Present Illness HPI narrative: Patient is a 77-year-old male who arrived to the emergency department today for evaluation. Earlier today he was at his normal state of health. He was at a local grocery store where he states that he tripped and fell over a cart and fell forward and hit his head on the ground. He is on anticoagulation. He was seen at the time by an EMS provider and transported to [facility]. At the hospital he received CT scans of his head which showed no acute pathology. He was found to be AFib with a heart rate between 100-110. He has been having shortness of breath and dyspnea on exertion over the past several weeks since he tested positive for COVID. It was recommended that he be admitted to the hospital however the patient left against medical advice and came to this facility. He is no new symptoms although he states he came here because he was just admitted here locally a couple weeks ago and thought maybe better to come to this facility. He denies chest pain. Does have some body aches. No lower extremity swelling. Related Data Home Medications Medication Instructions Recorded Confirmed apixaban 5 mg tablet 5 mg PO BID 09/16/18 02/10/23 ascorbic acid (vitamin C) 1,000 mg 1 g PO DAILY 09/16/18 02/10/23 tablet (Vitamin C) atorvastatin 40 mg tablet 40 mg PO BEDTIME 09/16/18 02/10/23 cholecalciferol (vitamin D3) 25 1,000 unit PO DAILY 09/16/18 02/10/23 mcg (1,000 unit) capsule (Vitamin D3) metoprolol succinate 25 mg 25 mg PO BID 09/16/18 02/10/23 tablet,extended release 24 hr multivitamin 1 tab PO DAILY 09/16/18 02/10/23 sertraline 50 mg tablet 100 mg PO DAILY 09/16/18 02/10/23 bumetanide 1 mg tablet 1 mg PO DAILY 02/02/23 02/10/23 Previous Rx's Medication Instructions Recorded lisinopril 5 mg tablet 2.5 mg (1/2 x 5 mg) PO DAILY #30 02/04/23 tabs spironolactone 25 mg tablet 12.5 mg (1/2 x 25 mg) PO DAILY #30 02/04/23 tabs albuterol sulfate 90 mcg/actuation 2 puff inhalation Q6H PRN 02/10/23 aerosol inhaler shortness of breath or wheezing #6.7 grams Allergies Allergy/AdvReac Type Severity Reaction Status Date / Time ampicillin Allergy Severe Swelling Verified 02/11/23 15:53 of Lip/Tongue/Throat Review of Systems Constitutional Constitutional: Reports system reviewed and no additional complaints, except as documented Cardiovascular Cardiovascular: Reports system reviewed and no additional complaints, except as documented Respiratory Respiratory: Reports system reviewed and no additional complaints, except as documented Gastrointestinal Gastrointestinal: Reports system reviewed and no additional complaints, except as documented Integumentary/Breasts Skin/Breast: Reports system reviewed and no additional complaints, except as documented Neurologic Neurologic: Reports system reviewed and no additional complaints, except as documented Hematologic/Lymphatic On Anticoagulants: Yes Patient History Medical History CVA (cerebral vascular accident) Hyperlipidemia A-fib Surgical History H/O aortic valve replacement Social History household members: none Smoking Status: Never smoker alcohol intake: never Smoking Status: Never smoker alcohol intake frequency: 0-2 drinks per day Substance Use Type: does not use Exam Initial Vital Signs Initial Vital Signs: Vital Signs Temperature 97.6 F 02/11/23 15:45 Pulse Rate 85 02/11/23 15:45 Respiratory Rate 20 02/11/23 15:45 Blood Pressure 101/68 02/11/23 15:45 Pulse Oximetry 96 02/11/23 15:45 Oxygen Delivery Method Room Air 02/11/23 15:45 Const General: cooperative, comfortable and No ill appearing HENMT Head: contusion (Forehead) Resp Effort & Inspection: normal respiratory effort and no respiratory distress Cardio Rate: regular rate Rhythm: abnormal rhythm GI Inspection: normal to inspection and non-distended Skin General: no rashes or lesions noted Neuro General: patient alert, patient awake, patient oriented x3 and moves all extremities Extrem General: No edema Scores GCS Lakisha coma scale eye opening: Spontaneous [place] coma scale verbal response: Orientated Lakisha coma scale motor response: Obey commands [place] coma scale total score: 15 Course Orders Ordered: ED Orders 02/11/23 18:51 Respiratory Panel (Film Array) Stat Vital Signs Vital signs: Vital Signs - 8 hr 02/11/23 15:45 02/11/23 16:01 02/11/23 16:30 Temperature 97.6 F Pulse Rate 85 89 89 Respiratory Rate 20 Blood Pressure 101/68 Pulse Oximetry 96 97 96 Oxygen Delivery Method Room Air 02/11/23 16:31 02/11/23 16:31 02/11/23 17:08 Temperature Pulse Rate 90 94 H Respiratory Rate Blood Pressure 103/60 Pulse Oximetry 96 Oxygen Delivery Method 02/11/23 17:09 02/11/23 17:09 02/11/23 17:30 Temperature Pulse Rate 106 H 85 Respiratory Rate 22 28 H Blood Pressure 108/63 Pulse Oximetry 96 Oxygen Delivery Method 02/11/23 17:30 Temperature Pulse Rate Respiratory Rate Blood Pressure 105/64 Pulse Oximetry Oxygen Delivery Method Medical Decision Making Medical Records Medical records reviewed: Yes I reviewed the patient's medical records. Lab Data Lab results reviewed: Yes I reviewed the patient's lab results. MDM Narrative Medical decision making narrative: Was able to review the notes from his prior ED visit today. I was also able to talk with the ED provider who saw him. He did leave Against Medical Advice. They wanted to admit him to the hospital for observation given his fall, presentation, consistent pneumonia despite antibiotics and his AFib. Here in this emergency department patient has a heart rate less than 100. Not hypoxic. Not tachypneic. Is able to tolerate oral intake. He ambulate around the emergency department in his heart rate did go into the 110s to 120 range but he would no chest pain. No lightheadedness and did not become hypoxic. There was no indication for admission to the hospital here. He is tolerating oral intake. He is also COVID positive. His RSV positive. Plan will be to have him take the antibiotics that he was prescribed at the prior facility. Will have him contact his primary doctor for follow-up return to the emergency department if needed. Discharge Plan Departure Patient Disposition: Home Clinical Impression: Pneumonia, Respiratory syncytial virus (RSV), COVID-19 Instructions: DI for Pneumonia -- Adult Activity Restrictions/Additional Instructions: I recommend that you continue to take all of your medications as directed and start taking the new medications that you were prescribed at your emergency department earlier today. Contact your primary care doctor for follow-up. Return to the emergency department for new symptoms. Prescriptions: No Action albuterol sulfate 90 mcg/actuation HFA aerosol inhaler 2 puff inhalation Q6H PRN (Reason: shortness of breath or wheezing) Qty: 6.7 0RF atorvastatin 40 mg tablet 40 mg PO BEDTIME Patient Comments: TK 1 T PO QD apixaban 5 mg tablet 5 mg PO BID multivitamin Tablet 1 tab PO DAILY ascorbic acid (vitamin C) [Vitamin C] 1,000 mg Tablet 1 g PO DAILY metoprolol succinate 25 mg tablet extended release 24 hr 25 mg PO BID Rx Instructions: takes 1.5 tab am and 1 tab at night sertraline 50 mg tablet 100 mg PO DAILY cholecalciferol (vitamin D3) [Vitamin D3] 1,000 unit Capsule 1,000 unit PO DAILY bumetanide 1 mg tablet 1 mg PO DAILY lisinopril 5 mg Tablet 2.5 mg PO DAILY Qty: 30 0RF spironolactone 25 mg tablet 12.5 mg PO DAILY Qty: 30 0RF Referrals: Rito Gr MD [Primary Care Provider] - Stand Alone Forms: Patient Portal/API
--- NOTE | 2023-02-11 18:04 | PC.NURSE ---
RN completed walking ambulation trial with pulse ox. Pt maintained O2 >95%, HR increased to 135 when ambulating and recovered back to [address] Syeda [place].
== END 2023-02-11 19:08 | disposition home or self-care (01) ==
PROVIDERS: Emergency Provider Emergency Medicine; PCP Internal Medicine
DX: J18.9 Pneumonia, unspecified organism (principal); B97.4 Respiratory syncytial virus as the cause of diseases classified elsewhere; U07.1 COVID-19; Z79.899 Other long term (current) drug therapy; Z79.01 Long term (current) use of anticoagulants
CPT/HCPCS: 99283

== ENCOUNTER 2023-02-27 18:01 | Emergency (ER) | payer MEDICARE, OTHER, SELFPAY ==
[2023-02-02 19:13] VITALS: BMI 24.8
[2023-02-27] VITALS (19 sets, daily range): BP systolic 86–113; BP diastolic 57–73; PULSE 94–129; RESP 18–38; TEMP 37.1; O2SAT 94–97; BMI 24.0
--- NOTE | 2023-02-27 19:06 | DI.RAD.S_ITS ---
PROCEDURE: XR CHEST 1V INDICATIONS: chest pain TECHNIQUE: One view of the chest was acquired. COMPARISON: [facility], CR, XR CHEST 1V, 02/02/2023, 16:42. FINDINGS: Surgical changes and devices: Sternotom. There is a prosthetic aortic valve. Lungs and pleura: Bilateral patchy infiltrates. No pleural effusions or pneumothorax. Mediastinum: Mediastinal contours appear normal. Heart size is normal. Bones and chest wall: No suspicious bony lesions. Overlying soft tissues appear unremarkable. IMPRESSION: Bilateral patchy infiltrates suspicious for atypical pneumonia. Dictated by: Laureen Swanson M.D. on 02/27/2023 at 19:45 Approved by: Laureen Swanson M.D. on 02/27/2023 at 19:45
[2023-02-27 19:22] LABS: INR 1.6 (0.9-1.3); Prothrombin Time 18.5 SECONDS (9.4-12.5)
[2023-02-27 19:25] LABS: PTT Partial Thromboplastin Tim 33 SECONDS (25.1-36.5)
[2023-02-27 19:30] LABS: Alanine Aminotransferase 120 IU/L (<50); Albumin 2.9 g/dL (3.5-5.0); Albumin Globulin Ratio 0.9 (1.0-2.8); Alkaline Phosphatase 172 U/L (38-126); BUN Creatinine Ratio 25.3 (6-22); Bilirubin Total 0.6 mg/dL (0.2-1.3); Blood Urea Nitrogen 19 mg/dL (9-20); Calcium 8.7 mg/dL (8.4-10.2); Carbon Dioxide 24 mmol/L (22-32); Chloride 93 mmol/L (98-107); Creatine Kinase 45 U/L (55-170); Estimated Glomerular Filt Rate > 60 mL/min (>60); Globulin 3.3 g/dL (1.7-4.1); Glucose 109 mg/dL (80-110); Lipase 32 U/L (23-300); Magnesium 1.8 mg/dL (1.6-2.3); Potassium 3.8 mmol/L (3.4-5.1); Sodium 124 mmol/L (137-145); Total Protein 6.2 g/dL (6.3-8.2)
[2023-02-27 19:34] LABS: Add Manual Diff / Slide Review NO; Basophils Absolute Auto 0 /uL (0-100); Basophils Percent Auto 0.3 % (0-2); Eosinophils Absolute Auto 100 /uL (0-450); Eosinophils Percent Auto 0.7 % (2-4); Hematocrit 32.5 % (41-53); Lymphocytes Absolute Auto 400 /uL (1100-4500); Lymphocytes Percent Auto 3.3 % (25-40); Mean Corpuscular HGB Conc 33.8 % (30-36); Mean Corpuscular Hemoglobin 28.7 PG (26-34); Mean Corpuscular Volume 84.9 fL (80-100); Monocytes Absolute Auto 800 /uL (0-900); Monocytes Percent Auto 6.7 % (3-14); Neutrophils Absolute Auto 10400 /uL (1500-7000); Platelet Count 413 X10^3/uL (150-400); Red Blood Cell Count 3.82 X10^6/uL (4.5-5.9); Red Cell Distribution Width 14.2 % (11.6-14.8); White Blood Cell Count 11.7 X10^3/uL (4.5-11.0)
[2023-02-27 19:41] LABS: Troponin I < 0.012 ng/mL (0.01-0.034)
[2023-02-27] MEDS: METOPROLOL TARTRATE 5 MG/5 ML INJ IV (20:08)
[2023-02-27 22:44] LABS: Influenza A - CEPHEID Flu A NEGATIVE (NEGATIVE); Influenza B - CEPHEID Flu B NEGATIVE (NEGATIVE); Respiratory Syncytial Virus Negative (Negative)
[2023-02-27 22:56] LABS: COVID-19 CEPHEID 4-PLEX PCR Negative (Negative)
--- NOTE | 2023-02-27 23:13 | ED.URI ---
HPI - URI/Sore Throat General Chief Complaint: Upper Respiratory Symptoms Stated Complaint: FEVER Time Seen by Provider: 02/27/23 18:23 Source: patient Mode of arrival: Wheelchair History of Present Illness HPI Narrative: 77 year old male presents with increased shortness of breath over baseline. Patient was diagnosed with both COVID-19 and RSV, tested positive on 02/10. Patient has completed 2 separate courses of antibiotics covering for both typical and atypical community-acquired pneumonia. Last dose of antibiotics was 2-3 days ago. Patient does have a history of atrial fibrillation and takes metoprolol for rate control. Fever of 100? measured at home. No other complaints or associated symptoms noted. Related Data Home Medications Medication Instructions Recorded Confirmed apixaban 5 mg tablet 5 mg PO BID 09/16/18 02/10/23 ascorbic acid (vitamin C) 1,000 mg 1 g PO DAILY 09/16/18 02/10/23 tablet (Vitamin C) atorvastatin 40 mg tablet 40 mg PO BEDTIME 09/16/18 02/10/23 cholecalciferol (vitamin D3) 25 1,000 unit PO DAILY 09/16/18 02/10/23 mcg (1,000 unit) capsule (Vitamin D3) metoprolol succinate 25 mg 25 mg PO BID 09/16/18 02/10/23 tablet,extended release 24 hr multivitamin 1 tab PO DAILY 09/16/18 02/10/23 sertraline 50 mg tablet 100 mg PO DAILY 09/16/18 02/10/23 bumetanide 1 mg tablet 1 mg PO DAILY 02/02/23 02/10/23 Previous Rx's Medication Instructions Recorded lisinopril 5 mg tablet 2.5 mg (1/2 x 5 mg) PO DAILY #30 02/04/23 tabs spironolactone 25 mg tablet 12.5 mg (1/2 x 25 mg) PO DAILY #30 02/04/23 tabs albuterol sulfate 90 mcg/actuation 2 puff inhalation Q6H PRN 02/10/23 aerosol inhaler shortness of breath or wheezing #6.7 grams Allergies Allergy/AdvReac Type Severity Reaction Status Date / Time ampicillin Allergy Severe Swelling Verified 02/27/23 18:16 of Lip/Tongue/Throat Review of Systems Review of Systems Narrative: See HPI for pertinent positives, otherwise review of systems negative Patient History Medical History CVA (cerebral vascular accident) Hyperlipidemia A-fib Surgical History H/O aortic valve replacement Social History household members: none Smoking Status: Never smoker alcohol intake: never Smoking Status: Never smoker alcohol intake frequency: 0-2 drinks per day Substance Use Type: does not use Exam Narrative Exam Narrative: General: Awake, alert, in no apparent distress HEENT: Normocephalic, atraumatic, pupils equal and reactive to light, oropharynx clear, oral mucosa moist Neck: Supple Cardiovascular: 2+ radial bilateral, tachycardia, irregularly, irregular rhythm Pulmonary: Regular respirations, no respiratory distress Abdominal: Soft, nontender, nondistended : Exam deferred Back: Nontender, normal motion Skin: Warm, dry, intact, no rashes Neuro: No focal neurological deficits, moving all 4 extremities equally, normal speech Psych: Normal mood, normal affect Initial Vital Signs Initial Vital Signs: Vital Signs Temperature 98.8 F 02/27/23 18:11 Pulse Rate 122 H 02/27/23 18:11 Respiratory Rate 18 02/27/23 18:11 Blood Pressure 102/73 02/27/23 18:11 Pulse Oximetry 97 02/27/23 18:11 Oxygen Delivery Method Room Air 02/27/23 18:11 Course Orders Ordered: Discontinued Medications Metoprolol Tartrate (Metoprolol Tartrate 5 Mg/5 Ml Inj) 5 mg IV NOW ONE Stop: 02/27/23 19:55 Last Admin: 02/27/23 20:08 Dose: 5 mg Documented By: CONRADO Vital Signs Vital signs: Vital Signs - 8 hr 02/27/23 18:11 02/27/23 18:24 02/27/23 18:26 Temperature 98.8 F Pulse Rate 122 H 117 H Respiratory Rate 18 Blood Pressure 102/73 106/65 Pulse Oximetry 97 95 Oxygen Delivery Method Room Air 02/27/23 18:26 02/27/23 18:30 02/27/23 18:30 Temperature Pulse Rate 129 H 128 H Respiratory Rate 34 H 30 H Blood Pressure 103/62 Pulse Oximetry 97 97 Oxygen Delivery Method Room Air 02/27/23 19:00 02/27/23 19:00 02/27/23 19:30 Temperature Pulse Rate 123 H 124 H Respiratory Rate 31 H 38 H Blood Pressure 106/67 Pulse Oximetry 96 95 Oxygen Delivery Method 02/27/23 19:35 02/27/23 19:36 02/27/23 19:36 Temperature Pulse Rate 124 H 123 H Respiratory Rate 33 H 35 H Blood Pressure 101/62 Pulse Oximetry 96 95 Oxygen Delivery Method 02/27/23 20:00 02/27/23 20:00 02/27/23 20:10 Temperature Pulse Rate 112 H Respiratory Rate 33 H Blood Pressure 99/62 106/66 Pulse Oximetry 96 Oxygen Delivery Method 02/27/23 20:10 02/27/23 20:12 02/27/23 20:12 Temperature Pulse Rate 117 H 114 H Respiratory Rate 34 H 30 H Blood Pressure 113/58 L Pulse Oximetry 96 96 Oxygen Delivery Method 02/27/23 20:15 02/27/23 20:15 02/27/23 20:20 Temperature Pulse Rate 106 H Respiratory Rate 32 H Blood Pressure 98/58 L Pulse Oximetry 95 Oxygen Delivery Method Room Air 02/27/23 20:30 02/27/23 20:30 02/27/23 21:00 Temperature Pulse Rate 109 H Respiratory Rate 34 H Blood Pressure 86/57 L 96/72 Pulse Oximetry 95 Oxygen Delivery Method 02/27/23 21:00 02/27/23 21:30 02/27/23 21:30 Temperature Pulse Rate 111 H 112 H Respiratory Rate 27 H 29 H Blood Pressure 106/67 Pulse Oximetry 95 95 Oxygen Delivery Method 02/27/23 22:00 02/27/23 22:00 02/27/23 22:30 Temperature Pulse Rate 103 H Respiratory Rate 37 H Blood Pressure 107/66 98/62 Pulse Oximetry 95 Oxygen Delivery Method 02/27/23 22:30 02/27/23 23:00 02/27/23 23:00 Temperature Pulse Rate 95 H 100 H Respiratory Rate 30 H 26 H Blood Pressure 103/61 Pulse Oximetry 95 94 Oxygen Delivery Method 02/27/23 23:30 02/27/23 23:30 Temperature Pulse Rate 94 H Respiratory Rate 29 H Blood Pressure 98/69 Pulse Oximetry 95 Oxygen Delivery Method MDM - URI/Sore Throat Differential Diagnosis Differential diagnosis: Likely upper respiratory infection, viral infection, influenza and other (Atrial fibrillation with a rapid ventricular rate.) Lab Data 02/27/23 18:32 02/27/23 18:32 Labs: Lab Results 02/27/23 02/27/23 Range/Units 18:32 22:04 WBC 11.7 H (4.5-11.0) X10^3/uL RBC 3.82 L (4.5-5.9) X10^6/uL Hgb 11.0 L (13.5-17.5) g/dL Hct 32.5 L (41-53) % MCV 84.9 (80-100) fL MCH 28.7 (26-34) PG MCHC 33.8 (30-36) % RDW 14.2 (11.6-14.8) % Plt Count 413 H (150-400) X10^3/uL Neut % (Auto) 89.0 H (50-75) % Lymph % (Auto) 3.3 L (25-40) % [place] % (Auto) 6.7 (3-14) % Eos % (Auto) 0.7 L (2-4) % Baso % (Auto) 0.3 (0-2) % Neut # (Auto) 12345 H (7900-4089) /uL Lymph # (Auto) 400 L (2390-8685) /uL [place] # (Auto) 800 (0-900) /uL Eos # (Auto) 100 (0-450) /uL Baso # (Auto) 0 (0-100) /uL PT 18.5 H (9.4-12.5) SECONDS INR 1.6 H (0.9-1.3) APTT 33 (25.1-36.5) SECONDS Sodium 124 L (137-145) mmol/L Potassium 3.8 (3.4-5.1) mmol/L Chloride 93 L (98-107) mmol/L Carbon Dioxide 24 (22-32) mmol/L BUN 19 (9-20) mg/dL Creatinine 0.75 (0.66-1.25) mg/dL Estimated GFR > 60 (>60) mL/min BUN/Creatinine Ratio 25.3 H (6-22) Glucose 109 (80-110) mg/dL Calcium 8.7 (8.4-10.2) mg/dL Magnesium 1.8 (1.6-2.3) mg/dL Total Bilirubin 0.6 (0.2-1.3) mg/dL AST 112 H (17-59) IU/L ALT 120 H (<50) IU/L Alkaline Phosphatase 172 H (38-126) U/L Total Creatine Kinase 45 L (55-170) U/L Troponin I < 0.012 (0.01-0.034) ng/mL Total Protein 6.2 L (6.3-8.2) g/dL Albumin 2.9 L (3.5-5.0) g/dL Globulin 3.3 (1.7-4.1) g/dL Albumin/Globulin Ratio 0.9 L (1.0-2.8) Lipase 32 (23-300) U/L SARS-CoV-2 (PCR) Negative (Negative) Influenza A (RT-PCR) Flu a negative (NEGATIVE) Influenza B (RT-PCR) Flu b negative (NEGATIVE) RSV (PCR) Negative (Negative) MDM Narrative Medical decision making narrative: Patient presents with dyspnea over baseline and recent history COVID-19. Tachycardic noted and patient is in atrial fibrillation with rapid ventricular rate. Lopressor 5 mg given with rate control. Influenza a/B and COVID-19-. Patient's symptoms are most suggestive nonspecific viral syndrome. Diagnostic laboratory testing within normal limits/nonactionable. Patient now stable and reports feeling much better. Return precautions given. Appears to be far recommended in 1 week. Patient discharged home in stable condition. Discharge Plan Departure Patient Disposition: Home Clinical Impression: Acute viral syndrome, Atrial fibrillation with rapid ventricular response Instructions: DI for Atrial Fibrillation, DI for Viral Syndrome Prescriptions: Continued albuterol sulfate 90 mcg/actuation HFA aerosol inhaler 2 puff inhalation Q6H PRN (Reason: shortness of breath or wheezing) Qty: 6.7 0RF atorvastatin 40 mg tablet 40 mg PO BEDTIME Patient Comments: TK 1 T PO QD apixaban 5 mg tablet 5 mg PO BID multivitamin Tablet 1 tab PO DAILY ascorbic acid (vitamin C) [Vitamin C] 1,000 mg Tablet 1 g PO DAILY metoprolol succinate 25 mg tablet extended release 24 hr 25 mg PO BID Rx Instructions: takes 1.5 tab am and 1 tab at night sertraline 50 mg tablet 100 mg PO DAILY cholecalciferol (vitamin D3) [Vitamin D3] 1,000 unit Capsule 1,000 unit PO DAILY bumetanide 1 mg tablet 1 mg PO DAILY lisinopril 5 mg Tablet 2.5 mg PO DAILY Qty: 30 0RF spironolactone 25 mg tablet 12.5 mg PO DAILY Qty: 30 0RF Referrals: Rito Gr MD [Primary Care Provider] - As soon as possible Stand Alone Forms: Patient Portal/API
[2023-02-28 15:32] LABS: HEMOLYSIS 15 (0-50)
[2023-02-28 15:33] LABS: Aspartate Aminotransferase 112 IU/L (17-59)
== END 2023-02-27 23:58 | disposition home or self-care (01) ==
PROVIDERS: Emergency Provider Emergency Medicine; PCP Internal Medicine
DX: I48.20 Chronic atrial fibrillation, unspecified (principal); B34.9 Viral infection, unspecified; Z79.899 Other long term (current) drug therapy; Z79.01 Long term (current) use of anticoagulants; Z20.822 Contact with and (suspected) exposure to COVID-19
CPT/HCPCS: 0241U; 36415; 71045; 80053; 82550; 83690; 83735; 84484; 85025; 85610; 85730; 93005; 96374; 99284